=== PATIENT | female | born 1965 | race African-American/Black ===

== ENCOUNTER 2018-05-08 11:19 | Emergency (ER) | payer BC, SELFPAY ==
--- NOTE | 2018-05-08 14:31 | EDPHYS ---
Physician Documentation [facility] Name: Lolis Betancourt Age: 53 yrs Sex: Female : 1965 Arrival Date: 05/08/2018 Time: 11:22 Bed 28 Private MD: ED Physician Rickie Manning HPI: 05/08 14:27 This 53 yrs old Black Female presents to ER via Wheelchair with complaints of Hip Pain, kb Leg Pain. 14:27 The patient or guardian reports pain. sustained from unknown reason, There is no kb obvious deformity, The patient is able to self ambulate. The patient is able to bear their full body weight. The patient's discomfort radiates to the right quadriceps. The complaints affect the right hip. Onset: The symptoms/episode began/occurred 2 day(s) ago. Modifying factors: The symptoms are alleviated by nothing, the symptoms are aggravated by weight bearing. Associated signs and symptoms: Loss of consciousness: the patient experienced no loss of consciousness, Pertinent positives: None. Pertinent negatives: None. Severity of symptoms: At their worst the symptoms were mild, moderate, in the emergency department the symptoms are unchanged. The patient has not experienced similar symptoms in the past. The patient has not recently seen a physician. Pt reports pain in right hip area that radiates down to right knee. Denies injury or trauma. . 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 - Social history:: Smoking status: Patient/guardian denies using tobacco. - Ebola Screening: : Patient negative for fever greater than or equal to 101.5 degrees Fahrenheit, and additional compatible Ebola Virus Disease symptoms Patient denies exposure to infectious person Patient denies travel to an Ebola-affected area in the 21 days before illness onset No symptoms or risks identified at this time. ROS: 14:26 Constitutional: Negative for fever, chills, and weight loss, Cardiovascular: Negative kb for chest pain, palpitations, and edema, Respiratory: Negative for shortness of breath, cough, wheezing, and pleuritic chest pain, Abdomen/GI: Negative for abdominal pain, nausea, vomiting, diarrhea, and constipation, Skin: Negative for injury, rash, and discoloration, Neuro: Negative for headache, weakness, numbness, tingling, and seizure. 14:26 MS/extremity: Positive for pain, of the right hip. Exam: 14:26 Constitutional: This is a well developed, well nourished patient who is awake, alert, kb and in no acute distress. Head/Face: Normocephalic, atraumatic. Neck: Trachea midline, no thyromegaly or masses palpated, and no cervical lymphadenopathy. Supple, full range of motion without nuchal rigidity, or vertebral point tenderness. No Meningismus. Chest/axilla: Normal chest wall appearance and motion. Nontender with no deformity. No lesions are appreciated. Cardiovascular: Regular rate and rhythm with a normal S1 and S2. No gallops, murmurs, or rubs. Normal PMI, no JVD. No pulse deficits. Respiratory: Lungs have equal breath sounds bilaterally, clear to auscultation and percussion. No rales, rhonchi or wheezes noted. No increased work of breathing, no retractions or nasal flaring. Abdomen/GI: Soft, non-tender, with normal bowel sounds. No distension or tympany. No guarding or rebound. No evidence of tenderness throughout. Skin: Warm, dry with normal turgor. Normal color with no rashes, no lesions, and no evidence of cellulitis. MS/ Extremity: Pulses equal, no cyanosis. Neurovascular intact. Full, normal range of motion. Neuro: Awake and alert, GCS 15, oriented to person, place, time, and situation. Cranial nerves II-XII grossly intact. Motor strength 5/5 in all extremities. Sensory grossly intact. Cerebellar exam normal. Normal gait. Vital Signs: 11:50 BP 148 / 85; Pulse 69; Resp 20; Temp 97.9; Pulse Ox 96% on R/A; Weight 136.08 kg; aj Height 5 ft. 10 in. (177.80 cm); 11:50 Body Mass Index 43.05 (136.08 kg, 177.80 cm) gilmer MDM: 13:19 Patient medically screened. kb 13:54 Patient medically screened. kb 14:26 Data reviewed: vital signs, nurses notes. Data interpreted: Pulse oximetry: on room air kb is 96 %. Interpretation: normal. 14:27 Counseling: I had a detailed discussion with the patient and/or guardian regarding: the kb historical points, exam findings, and any diagnostic results supporting the discharge/admit diagnosis, the need for outpatient follow up, a family practitioner, to return to the emergency department if symptoms worsen or persist or if there are any questions or concerns that arise at home. 14:31 ED course: No pain with rest. . kb Administered Medications: 14:34 Drug: [place] (7.5 mg-325 mg) 1 tabs Route: PO; mg2 14:34 Follow up: Response: No adverse reaction; Medication administered at discharge. mg2 Disposition: 05/09 13:50 Co-signature as Attending Physician, Rickie Manning MD I agree with the assessment and kdr plan of care. Disposition: 05/08/18 14:30 Discharged to Home. Impression: Pain in right leg. - Condition is Stable. - Discharge Instructions: Musculoskeletal Pain. - Prescriptions for Cyclobenzaprine 10 mg Oral Tablet - take 1 tablet by ORAL route every 8 hours As needed; 21 tablet. - Medication Reconciliation Form, Thank You Letter, Antibiotic Education, Prescription Opioid Use form. - Follow up: Emergency Department; When: As needed; Reason: Worsening of condition. Follow up: Private Physician; When: 2 - 3 days; Reason: Recheck today's complaints, Continuance of care, Re-evaluation by your physician. Signatures: Sharlene Garrett, VP & GENERAL COUNSEL-C VP & GENERAL COUNSEL-Tamara Blake RN RN Rickie Murillo MD MD [facility] Linh Franco RN RN tl3 Riaz Puckett RN RN mg2 Corrections: (The following items were deleted from the chart) 05/08 15:05 14:30 05/08/2018 14:30 Discharged to Home. Impression: Pain in right leg. Condition is tl3 Stable. Forms are Medication Reconciliation Form, Thank You Letter, Antibiotic Education, Prescription Opioid Use. Follow up: Emergency Department; When: As needed; Reason: Worsening of condition. Follow up: Private Physician; When: 2 - 3 days; Reason: Recheck today's complaints, Continuance of care, Re-evaluation by your physician. kb
--- NOTE | 2018-05-08 14:31 | ER ---
Nurse's Notes [facility] Name: Lolis Betancourt Age: 53 yrs Sex: Female : 1965 Arrival Date: 05/08/2018 Time: 11:22 Bed 28 Private MD: Diagnosis: Pain in right leg Presentation: 05/08 11:48 Presenting complaint: Patient states: Right hip pain that radiates to knee for 2 days. aj Transition of care: patient was not received from another setting of care. Onset of symptoms was May 06, 2018. Risk Assessment: Do you want to hurt yourself or someone else? Patient reports no desire to harm self or others. Initial Sepsis Screen: Does the patient meet any 2 criteria? No. Patient's initial sepsis screen is negative. Does the patient have a suspected source of infection? No. Patient's initial sepsis screen is negative. Care prior to arrival: None. 11:48 Method Of Arrival: Wheelchair aj 11:48 Acuity: LYRIC 4 aj Triage Assessment: 11:50 General: Appears in no apparent distress. comfortable, obese, Behavior is calm, aj cooperative, appropriate for age. Pain: Complains of pain in right hip and right leg. Neuro: Level of Consciousness is awake, alert, obeys commands, Oriented to person, place, time, situation, Appropriate for age. Respiratory: Airway is patent Respiratory effort is even, unlabored, Respiratory pattern is regular, symmetrical. Derm: Skin is intact, is healthy with good turgor, Skin is pink, warm \T\ dry. normal. Musculoskeletal: Reports pain in right hip and right leg. 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 - Social history:: Smoking status: Patient/guardian denies using tobacco. - Ebola Screening: : Patient negative for fever greater than or equal to 101.5 degrees Fahrenheit, and additional compatible Ebola Virus Disease symptoms Patient denies exposure to infectious person Patient denies travel to an Ebola-affected area in the 21 days before illness onset No symptoms or risks identified at this time. Screenin:08 Abuse screen: Denies threats or abuse. Denies injuries from another. Nutritional mg2 screening: No deficits noted. Tuberculosis screening: No symptoms or risk factors identified. Fall Risk Gait- Weak (10 pts.). Assessment: 14:09 General: Appears in no apparent distress. uncomfortable, Behavior is calm, cooperative. mg2 Pain: Complains of pain in right hip Pain radiates to right leg Pain currently is 6 out of 10 on a pain scale. Quality of pain is described as aching, Pain began gradually, 1 day ago. Neuro: Level of Consciousness is awake, alert, obeys commands, Oriented to person, place, time. Cardiovascular: No deficits noted. Respiratory: No deficits noted. GI: No signs and/or symptoms were reported involving the gastrointestinal system. : No signs and/or symptoms were reported regarding the genitourinary system. EENT: No signs and/or symptoms were reported regarding the EENT system. Derm: Skin is intact, is healthy with good turgor, Skin is pink, warm \T\ dry. normal. Musculoskeletal: Reports pain in right leg and pelvis and right hip. Vital Signs: 11:50 BP 148 / 85; Pulse 69; Resp 20; Temp 97.9; Pulse Ox 96% on R/A; Weight 136.08 kg; aj Height 5 ft. 10 in. (177.80 cm); 11:50 Body Mass Index 43.05 (136.08 kg, 177.80 cm) aj ED Course: 11:22 Patient arrived in ED. as 11:49 Triage completed. aj 11:50 Arm band placed on left wrist. Patient placed in waiting room, in a wheelchair, Patient aj notified of wait time. 13:18 Linh Franco, MARC is Primary Nurse. tl3 13:19 Sharlene Garrett FNP-C is PHCP. kb 13:19 Rickie Manning MD is Attending Physician. kb 13:54 Sharlene Garrett FNP-C is PHCP. kb 13:54 Rickie Manning MD is Attending Physician. kb 14:11 Patient has correct armband on for positive identification. mg2 Administered Medications: 14:34 Drug: [place] (7.5 mg-325 mg) 1 tabs Route: PO; mg2 14:34 Follow up: Response: No adverse reaction; Medication administered at discharge. mg2 Outcome: 14:30 Discharge ordered by . kb 15:05 Patient left the ED. tl3 Signatures: Sharlene Garrett, SEATING UPHOLSTERER-C SEATING UPHOLSTERER-Tamara Blake RN RN aj Ludmila Javier Tammy, RN RN tl3 Riaz Puckett, MARC RN mg2 Corrections: (The following items were deleted from the chart) 13:26 11:50 BP 148 / 85; Pulse 20bpm; Resp 20bpm; Pulse Ox 96% RA; Temp 97.9F; 136.08 kg; aj Height 5 ft. 10 in.; BMI: 43.0; aj
[2018-05-08] MEDS ORDERED: HYDROCODONE/APAP 7.5/325 MG TAB ONE (14:39)
[2018-05-08 16:27] VITALS: BP 148/85; TEMP 97.9; O2SAT 96
== END 2018-05-08 15:05 | disposition home or self-care (01) ==
LOC: ER 11:19
DX: M79.604 Pain in right leg (principal); I10 Essential (primary) hypertension; E78.5 Hyperlipidemia, unspecified; I50.9 Heart failure, unspecified; Z86.73 Personal history of transient ischemic attack (TIA), and cerebral infarction without residual deficits
CPT/HCPCS: 99282

== ENCOUNTER 2019-10-28 06:44 | Inpatient (IN) | payer SELFPAY ==
[2019-10-28] MEDS ORDERED: FUROSEMIDE 40 MG/4 ML VIAL ONE (07:49)
[2019-10-28 08:07] LABS: Absolute Lymphocytes (CBC) 1.6 K/uL (0.7-4.9); Basophils % 0.8 % (0-1.3); Hematocrit 46.1 % (36.0-45.0); Lymphocytes % 21.9 % (15.3-44.8); MPV 9.5 fL (7.6-11.3); RBC Red Blood Cell Count 5.14 M/uL (3.86-4.86)
[2019-10-28 08:11] LABS: Protime INR 1.3
[2019-10-28 08:28] LABS: Albumin 3.2 g/dL (3.4-5.0); Bilirubin Direct 0.2 mg/dL (0-0.2); Bilirubin Total 0.7 mg/dL (0.2-1.0); Magnesium 1.7 mg/dL (1.8-2.4); Potassium 3.7 mmol/L (3.5-5.1); Protein, Total 7.2 g/dL (6.4-8.2); Troponin (Emerg Dept Use Only) 0.28 ng/mL (0.0-0.045)
--- NOTE | 2019-10-28 08:29 | RAD REPORT ---
EXAM DESCRIPTION: RAD - Chest Single View - 10/28/2019 7:31 am CLINICAL HISTORY: SWELLING Chest pain. COMPARISON: CHEST SINGLE VIEW dated 09/13/2015; CHEST PA AND LAT 2 VIEW dated 03/10/2013; CHEST SINGLE VIEW dated 03/06/2013 FINDINGS: Portable technique limits examination quality. Mild to moderate pulmonary edema. The heart is significantly enlarged. No displaced fractures. IMPRESSION: Moderate CHF.
--- NOTE | 2019-10-28 08:41 | EDPHYS ---
Physician Documentation [facility] Name: Lolis Betancourt Age: 54 yrs Sex: Female : 1965 Arrival Date: 10/28/2019 Time: 06:45 Bed 13 Private MD: ED Physician Chinmay Lorenz HPI: 10/27 08:12 This 54 yrs old Black Female presents to ER via Wheelchair with complaints of Feet kb Swelling, Anxiety. 07:25 Pt reports she has been retaining fluid in her legs and abd. States she has also been kb having panic attacks due to the loss of her 6 months ago and her mother yesterday. Has history of anxiety.. 08:12 The patient presents with swelling. The complaints affect the right leg and left leg. kb The patient has experienced similar episodes in the past. 08:12 Context: The problem was sustained at home, resulted from a chronic condition, the kb patient can fully bear weight, the patient is able to ambulate. Onset: The symptoms/episode began/occurred 3 day(s) ago. Modifying factors: The symptoms are alleviated by nothing. the symptoms are aggravated by nothing. Associated signs and symptoms: Pertinent positives: swelling, Pertinent negatives calf tenderness, fever, nausea, numbness, rash, tingling, vomiting, warmth, weakness. Treatment prior to arrival includes: no previous treatment. Severity of symptoms: At their worst the symptoms were moderate, in the emergency department the symptoms are unchanged. The patient has not recently seen a physician. Historical: - Allergies: 07:02 No Known Allergies; wh - Home Meds: 07:05 atorvastatin 40 mg oral tab once daily [Active]; losartan 25 mg oral tab once daily [Active]; metoprolol tartrate 25 mg Oral tab 1 tab 2 times per day [Active]; clopidogrel 75 mg Oral tab 1 tab once daily [Active]; Lasix 40 mg Oral tab 1 tab once daily [Active]; hydroxyzine HCl 25 mg Oral tab 1 tab every 6 hours [Active]; - PMHx: 07:02 CHF; CVA; Hyperlipidemia; Hypertension; Anxiety; wh - Immunization history:: Adult Immunizations up to date. - Social history:: Smoking status: Patient/guardian denies using. ROS: 08:14 Constitutional: Negative for fever, chills, and weight loss, Neck: Negative for injury, kb pain, and swelling, Respiratory: Negative for shortness of breath, cough, wheezing, and pleuritic chest pain, Abdomen/GI: Negative for abdominal pain, nausea, vomiting, diarrhea, and constipation, Back: Negative for injury and pain, MS/Extremity: Negative for injury and deformity, Skin: Negative for injury, rash, and discoloration, Neuro: Negative for headache, weakness, numbness, tingling, and seizure. 08:14 Cardiovascular: Positive for edema, Negative for chest pain, orthopnea, palpitations, paroxysmal nocturnal dyspnea. 08:14 Psych: Positive for anxiety, Negative for depression, drug dependence, alcohol dependence, auditory hallucinations, visual hallucinations, homicidal ideation, insomnia, suicide gesture, suicidal ideation. Exam: 08:13 Constitutional: This is a well developed, well nourished patient who is awake, alert, kb and in no acute distress. Head/Face: Normocephalic, atraumatic. Neck: Trachea midline, no thyromegaly or masses palpated, and no cervical lymphadenopathy. Supple, full range of motion without nuchal rigidity, or vertebral point tenderness. No Meningismus. Chest/axilla: Normal chest wall appearance and motion. Nontender with no deformity. No lesions are appreciated. Respiratory: Lungs have equal breath sounds bilaterally, clear to auscultation and percussion. No rales, rhonchi or wheezes noted. No increased work of breathing, no retractions or nasal flaring. Abdomen/GI: Soft, non-tender, with normal bowel sounds. No distension or tympany. No guarding or rebound. No evidence of tenderness throughout. Back: No spinal tenderness. No costovertebral tenderness. Full range of motion. Skin: Warm, dry with normal turgor. Normal color with no rashes, no lesions, and no evidence of cellulitis. MS/ Extremity: Pulses equal, no cyanosis. Neurovascular intact. Full, normal range of motion. Neuro: Awake and alert, GCS 15, oriented to person, place, time, and situation. Cranial nerves II-XII grossly intact. Motor strength 5/5 in all extremities. Sensory grossly intact. Cerebellar exam normal. Normal gait. 08:13 Cardiovascular: Rate: normal, Rhythm: irregularly irregular, Pulses: no pulse deficits are appreciated, Heart sounds: normal, Edema: 1+ edema to level of left ankle and right ankle. 08:41 ECG was reviewed by the Attending Physician. kb Vital Signs: 06:59 BP 123 / 106; Pulse 80; Resp 18; Temp 98.2; Pulse Ox 97% ; Weight 154.22 kg; Height 5 wh ft. 10 in. (177.80 cm); 07:40 BP 118 / 95; Pulse Ox 96% on R/A; ss 08:32 BP 115 / 95; Pulse 126; Resp 18; Pulse Ox 96% on R/A; Pain 0/10; ss 09:23 BP 107 / 86; Pulse 106; Resp 16; Pulse Ox 97% on R/A; ph 10:30 BP 109 / 88; Pulse 102; Resp 16; Temp 97.9; Pulse Ox 97% on R/A; ph 06:59 Body Mass Index 48.78 (154.22 kg, 177.80 cm) wh MDM: 06:51 Patient medically screened. kb 07:25 Data reviewed: vital signs, nurses notes. Data interpreted: Pulse oximetry: on room air kb is 97 %. Interpretation: normal. 08:38 Counseling: I had a detailed discussion with the patient and/or guardian regarding: the kb historical points, exam findings, and any diagnostic results supporting the discharge/admit diagnosis, lab results, radiology results, the need for further work-up and treatment in the hospital. 10/27 07:12 Order name: Basic Metabolic Panel; Complete Time: 08:32 kb 10/27 07:12 Order name: CBC with Diff; Complete Time: 08:10 kb 10/27 07:12 Order name: LFT's; Complete Time: 08:32 kb 10/27 07:12 Order name: Magnesium; Complete Time: 08:32 kb 10/27 07:12 Order name: NT PRO-BNP; Complete Time: 08:32 kb 10/27 07:12 Order name: PT-INR; Complete Time: 08:14 kb 10/27 07:12 Order name: Troponin (emerg Dept Use Only); Complete Time: 08:32 kb 10/27 07:12 Order name: XRAY Chest (1 view); Complete Time: 08:36 kb 10/27 08:50 Order name: Echo with Doppler EDMS 10/27 08:50 Order name: Thyroid Stimulating Hormone; Complete Time: 09:25 EDMS 10/27 08:50 Order name: Basic Metabolic Panel EDMS 10/27 07:12 Order name: EKG; Complete Time: 07:13 kb 10/27 07:12 Order name: Cardiac monitoring; Complete Time: 08:35 kb 10/27 07:12 Order name: EKG - Nurse/Tech; Complete Time: 08:35 kb 10/27 07:12 Order name: IV Saline Lock; Complete Time: 07:56 kb 10/27 07:12 Order name: Labs collected and sent; Complete Time: 07:56 kb 10/27 07:12 Order name: O2 Per Protocol; Complete Time: 07:57 kb 10/27 07:12 Order name: O2 Sat Monitoring; Complete Time: 07:57 kb 10/27 08:50 Order name: CONS Physician Consult EDMT 10/27 08:50 Order name: Heart Healthy EDMT EC:41 Rate is 126 beats/min. Rhythm is irregularly irregular. QRS [place] is Normal. QRS kb interval is normal at 118 msec. QT interval is normal at 366 msec. Administered Medications: 07:56 Drug: Lasix 40 mg Route: IVP; Site: right antecubital; ss 08:34 Follow up: Response: No adverse reaction; No adverse reaction, patient has voided x 2 ss at this time 11:09 Not Given (Hemodynamic Parameters): Lopressor 5 mg IVP once; Hold for SBP <100 or HR ph <60. 11:09 Not Given (Hemodynamic Parameters): Lasix 40 mg IVP once ph Disposition: 15:05 Co-signature as Attending Physician, Chinmay Lorenz MD I agree with the assessment and 4 plan of care. Disposition: 10/28/19 08:41 Hospitalization ordered by Freddy Seay for Inpatient Admission. Preliminary diagnosis are Unspecified atrial fibrillation - new onset, Unspecified combined systolic (congestive) and diastolic (congestive) heart failure. - Bed requested for Telemetry/MedSurg (Inpatient). - Status is Inpatient Admission. hb - Condition is Stable. - Problem is new. - Symptoms are unchanged. Signatures: Dispatcher [employer] [facility] Sharlene Garrett FNP-C FNP-Maryjo Fuller Shelby, RN RN Candy Fan RN RN Harjit Bae Chinmay Lorenz MD MD [facility] Rosalia Payton RN ph Corrections: (The following items were deleted from the chart) 08:25 08:13 Cardiovascular: Rate: normal, Pulses: no pulse deficits are appreciated, Heart kb sounds: normal, Edema: 1+ edema to level of left ankle and right ankle, kb 09:52 08:41 Hospitalization Ordered by Freddy Seay MD for Inpatient Admission. bd Preliminary diagnosis is Unspecified atrial fibrillation - new onset; Unspecified combined systolic (congestive) and diastolic (congestive) heart failure. Bed requested for Telemetry/MedSurg (Inpatient). Status is Inpatient Admission. Condition is Stable. Problem is new. Symptoms are unchanged. kb 11:30 09:52 10/28/2019 08:41 Hospitalization Ordered by Freddy Seay MD for Inpatient hb Admission. Preliminary diagnosis is Unspecified atrial fibrillation - new onset; Unspecified combined systolic (congestive) and diastolic (congestive) heart failure. Bed requested for Telemetry/MedSurg (Inpatient). Status is Inpatient Admission. Condition is Stable. Problem is new. Symptoms are unchanged. bd
--- NOTE | 2019-10-28 08:41 | ER ---
Nurse's Notes [facility] Name: Lolis Betancourt Age: 54 yrs Sex: Female : 1965 Arrival Date: 10/28/2019 Time: 06:45 Bed 13 Private MD: Diagnosis: Unspecified atrial fibrillation-new onset;Unspecified combined systolic (congestive) and diastolic (congestive) heart failure Presentation: 10/27 06:59 Chief complaint: Patient states: C/O leg swelling and fluid retention on abdomen that wh started a few days ago. Pt also C/O panic attacks. Coronavirus screen: Proceed with normal triage. Patient denies a cough. Patient denies shortness of breath or difficulty breathing. Patient denies measured and/or subjective temperature greater than 100.4F prior to today's visit. Patient denies travel on a cruise ship or to a country the [facility] currently lists as an affected area. Patient denies contact with known and/or suspected case of COVID-19. Ebola Screen: Patient negative for fever greater than or equal to 101.5 degrees Fahrenheit, and additional compatible Ebola Virus Disease symptoms Patient denies exposure to infectious person. Initial Sepsis Screen: Does the patient meet any 2 criteria? No. Patient's initial sepsis screen is negative. Does the patient have a suspected source of infection? No. Patient's initial sepsis screen is negative. Risk Assessment: Do you want to hurt yourself or someone else? Patient reports no desire to harm self or others. Onset of symptoms is unknown. 06:59 Method Of Arrival: Wheelchair 06:59 Acuity: LYRIC 3 Historical: - Allergies: 07:02 No Known Allergies; - Home Meds: 07:05 atorvastatin 40 mg oral tab once daily [Active]; losartan 25 mg oral tab once daily [Active]; metoprolol tartrate 25 mg Oral tab 1 tab 2 times per day [Active]; clopidogrel 75 mg Oral tab 1 tab once daily [Active]; Lasix 40 mg Oral tab 1 tab once daily [Active]; hydroxyzine HCl 25 mg Oral tab 1 tab every 6 hours [Active]; - PMHx: 07:02 CHF; CVA; Hyperlipidemia; Hypertension; Anxiety; wh - Immunization history:: Adult Immunizations up to date. - Social history:: Smoking status: Patient/guardian denies using. Screenin:08 Abuse screen: Denies threats or abuse. Denies injuries from another. Nutritional wh screening: No deficits noted. Tuberculosis screening: No symptoms or risk factors identified. Fall Risk None identified. Assessment: 08:40 Reassessment: Pt voided at this time 300 mL. Started menstrual cycle. Feminine pads ss given. Pt is grateful. Pt back in exam bed, on monitors. Call light remains within reach. 09:30 Reassessment: Patient appears in no apparent distress at this time. Patient and/or ph family updated on plan of care and expected duration. Pain level reassessed. Patient is alert, oriented x 3, equal unlabored respirations, skin warm/dry/pink. 10:00 Reassessment: Attempted to call report to second floor, no answer at nurses station. ph 10:30 Reassessment: Patient appears in no apparent distress at this time. Patient and/or ph family updated on plan of care and expected duration. Pain level reassessed. Patient is alert, oriented x 3, equal unlabored respirations, skin warm/dry/pink. Report called to Maggie TRAN. Vital Signs: 06:59 BP 123 / 106; Pulse 80; Resp 18; Temp 98.2; Pulse Ox 97% ; Weight 154.22 kg; Height 5 wh ft. 10 in. (177.80 cm); 07:40 BP 118 / 95; Pulse Ox 96% on R/A; ss 08:32 BP 115 / 95; Pulse 126; Resp 18; Pulse Ox 96% on R/A; Pain 0/10; ss 09:23 BP 107 / 86; Pulse 106; Resp 16; Pulse Ox 97% on R/A; ph 10:30 BP 109 / 88; Pulse 102; Resp 16; Temp 97.9; Pulse Ox 97% on R/A; ph 06:59 Body Mass Index 48.78 (154.22 kg, 177.80 cm) ED Course: 06:45 Patient arrived in ED. cl3 06:51 Sharlene Garrett FNP-C [facility]. kb 06:51 Andrei Angelo MD is Attending Physician. kb 06:51 Chinmay Lorenz MD is Attending Physician. kb 07:01 Triage completed. 07:08 Patient has correct armband on for positive identification. Bed in low position. Call wh light in reach. Side rails up X 1. Pulse ox on. NIBP on. 07:08 Arm band placed on right wrist. wh 07:33 XRAY Chest (1 view) In Process Unspecified. EDMS 07:39 Hailey Browning, MARC is Primary Nurse. ss 07:57 Inserted saline lock: 20 gauge in right Blood collected. ss 08:38 Cassius Seay MD is Hospitalizing Provider. kb 08:38 Freddy Seay MD is Hospitalizing Provider. kb 11:11 No provider procedures requiring assistance completed. Patient admitted, IV remains in ph place. Administered Medications: 07:56 Drug: Lasix 40 mg Route: IVP; Site: right antecubital; ss 08:34 Follow up: Response: No adverse reaction; No adverse reaction, patient has voided x 2 ss at this time 11:09 Not Given (Hemodynamic Parameters): Lopressor 5 mg IVP once; Hold for SBP <100 or HR ph <60. 11:09 Not Given (Hemodynamic Parameters): Lasix 40 mg IVP once ph Output: 09:23 Urine: 350ml (Voided); Total: 350ml. ph Outcome: 08:41 Decision to Hospitalize by Provider. kb 11:12 Admitted to Tele accompanied by tech, via wheelchair, room 203, with chart, Report ph called to Maggie TRAN 11:12 Condition: stable 11:12 Instructed on the need for admit. 11:30 Patient left the ED. Signatures: Dispatcher [employer] EDMS Sharlene Garrett, AD OPERATIONS COORDINATOR-C AD OPERATIONS COORDINATOR-CkHailey Méndez RN RN Rosalia Payton RN RN Candy Fan RN RN Harjit Bae Charde cl3
[2019-10-28] MEDS ORDERED: ONDANSETRON 4 MG/2 ML VIAL IV PRN (08:44)
[2019-10-28] MEDS ORDERED: ACETAMINOPHEN 500 MG TAB PO PRN (08:44)
[2019-10-28] MEDS: FUROSEMIDE 40 MG/4 ML VIAL IV SCH ×2 (09:00→16:27)
--- NOTE | 2019-10-28 09:18 | P.HP ---
Certification for Inpatient Patient admitted to: Inpatient With expected LOS: >2 Midnights Practitioner: I am a practitioner with admitting privileges, knowledge of patient current condition, hospital course, and medical plan of care. Services: Services provided to patient in accordance with Admission requirements found in Title 42 Section 412.3 of the Code of Federal Regulations Patient History Date of Service: 10/28/19 Reason for admission: Shortness of breath in AFib History of Present Illness: Patient is 54 years of age history of congestive heart failure hypertension a dmitted with dyspnea for the past few days lower extremity edema abdominal distension patient is compliant with the medication recent head to bereavement seen her family cause a lot of stress she has some anxiety no primary care physician symptoms of obstructive sleep apnea excessive daytime somnolence snoring patient was diagnosed with new onset AFib Allergies No Known Drug Allergies Allergy (Verified 09/13/15 23:09) Unknown No Known Allergies Allergy (Uncoded 09/13/15 20:08) Unknown Home Medications: Folic Acid [Folic Acid*] 1 mg PO DAILY #0 tab 03/14/13 lisinopriL [Prinivil*] 5 mg PO DAILY #0 tab 03/14/13 Atorvastatin Calcium 40 mg PO DAILY #30 tablet 09/16/15 Clopidogrel Bisulfate [Plavix*] 75 mg PO DAILY #30 tablet 09/16/15 Furosemide [Lasix*] 40 mg PO DAILY #30 tab 09/16/15 Metoprolol Tartrate [Lopressor*] 25 mg PO BID #60 tab 09/16/15 Valsartan [Diovan*] 40 mg PO DAILY #30 tab 09/16/15 - Past Medical/Surgical History Diabetic: No -: CHF -: CVA -: HTN - Family History Mother -: Kidney disease Father -: Hypertension, Liver disease, Kidney disease - Social History Alcohol use: No CD- Drugs: No Caffeine use: Yes Review of Systems Unremarkable Respiratory: Shortness of Breath Cardiovascular: Edema (Bilateral edema) Physical Examination - Vital Signs Temperature: 98.2 F Blood Pressure: 118/95 Pulse: 80 Respirations: 18 Pulse Ox (%): 97 - Physical Exam General: In no apparent distress, Oriented x3 HEENT: Atraumatic Neck: Supple Respiratory: Clear to auscultation bilaterally Cardiovascular: Edema (Bilateral 2+ edema), Irregular heart rate/rhythm Gastrointestinal: Normal bowel sounds, Soft and benign Musculoskeletal: No clubbing Integumentary: No rashes, No breakdown - Studies Laboratory Data (last 24 hrs) 10/28/19 07:55: PT 15.3 H, INR 1.30 10/28/19 07:55: WBC 7.3, Hgb 14.5, Hct 46.1 H, Plt Count 189 10/28/19 07:55: Sodium 141, Potassium 3.7, BUN 14, Creatinine 0.81, Glucose 125 H, Magnesium 1.7 L, Total Bilirubin 0.7, AST 29, ALT 50, Alkaline Phosphatase 74 Assessment and Plan - Problems (Diagnosis) (1) Atrial fibrillation Current Visit: Yes Status: Acute Plan: Patient is 54 years of age admitted with apparently new onset of AFib now eyes any palpitation Qualifiers: Atrial fibrillation type: unspecified Qualified Code(s): I48.91 - Unspecified atrial fibrillation (2) Congestive heart failure Current Visit: Yes Status: Acute Plan: Patient has a history of congestive heart failure compliant with the medication continue with diuretics resume home medications labs reviewed echocardiogram thyroid function test Consul cardiology patient has a history of stroke is on Pl avix Discharge Plan: Home Plan to discharge in: 24 Hours - Advance Directives Does patient have a Living Will: No Does patient have a Durable POA for Healthcare: No
--- NOTE | 2019-10-28 11:35 | EKG ---
Test Date: 2019-10-28 Test Time: 08:20:13 Rope Walker: JOHN MEASUREMENT RESULTS: Intervals: Rate: 126 MT: QRSD: 118 QT: 366 QTc: 530 [place]: P: MT: QRS: 9 T: 63 INTERPRETIVE STATEMENTS: Atrial fibrillation with rapid ventricular response with premature ventricular or aberrantly conducted complexes Septal infarct, age undetermined Abnormal ECG Compared to ECG 09/13/2015 15:43:56 Ventricular premature complex(es) now present Myocardial infarct finding now present Sinus tachycardia no longer present ST (T wave) deviation no longer present Possible ischemia no longer present Electronically Signed On 10-28-19 11:34:41 CDT by Jimenez Marcus
[2019-10-28] MEDS ORDERED: MAGNESIUM OXIDE 400 MG TAB PO ONE (15:00)
[2019-10-28] MEDS ORDERED: DIGOXIN 0.25 MG/ML AMP IV ONE (23:44)
[2019-10-29 05:42] LABS: Magnesium 1.7 mg/dL (1.8-2.4); Phosphorus 3.6 mg/dL (2.5-4.9); Potassium 3.5 mmol/L (3.5-5.1); Troponin I 0.24 ng/mL (0.0-0.045)
[2019-10-29] MEDS: DIGOXIN 0.25 MG/ML AMP IV SCH ×2 (06:08→13:01)
[2019-10-29] MEDS ORDERED: ALBUTEROL INHALER 60 PUFF/8 GM IH PRN (06:22)
[2019-10-29] MEDS ORDERED: hydrOXYzine HCL 25 MG TAB PO PRN (06:22)
[2019-10-29] MEDS ORDERED: MAGNESIUM SULFATE 1 gm IVPB 1 GM/100 ML BAG IV ONE (06:24)
--- NOTE | 2019-10-29 07:00 | P.PN ---
Date of Service: 10/28/19 SUBJECTIVE: Patient remains in atrial fibrillation with occasional episodes of RVR. Heart rate gets into the 120s. Patient blood pressure is been 90-100 systolic. At this time, will go ahead and give digoxin to control the heart rate and try to get HR controlled. Spoke with patient regarding POC; will assess patient after first dose given OBJECTIVE: Vital Signs: reviewed General: Morbidly obese; AAO x3 CV: Irr, irr rate/rhythm w/ RENATA Lungs: Decreased Abd: Soft NT/distended BS + Ext: mildly edematous ASSESSMENT: 1. Atrial fib w/ RVR 2. Low BP 3. Morbidly obese 4. HTN 5. DM-2 PLAN: -will give IV digoxin and reassess; monitor hemodynamics closely -continue with current plan of care -monitor labs closely -strict BS and BP -Troponins mildly elevated which may be related to AFib with RVR. Cardiology consultation and echocardiogram pending. -BNP also is elevated. Await workup at this time and await for cardiology input. Monitor closely through the evening. Follow-up: Patient has done well through the evening; she feels better after digoxin; no CP; no palpitations; will continue with a couple additonal doses every 6h; POC per above Total time spent with patient through the evening was 45 minutes in addition to H&P done in the AM by colleague, Dr. Seay
--- NOTE | 2019-10-29 08:21 | P.PN ---
Subjective Date of Service: 10/29/19 Chief Complaint: Shortness of breath in AFib Subjective: Improving (Patient is doing much better shortness of breath is improved patient is in AFib) Review of Systems Unremarkable Physical Examination - Vital Signs Temperature: 97.0 F Blood Pressure: 117/84 Pulse: 94 Respirations: 18 Pulse Ox (%): 98 - Physical Exam General: Alert, In no apparent distress, Oriented x3 Respiratory: Clear to auscultation bilaterally Cardiovascular: No edema, Regular rate/rhythm - Studies Laboratory Data (last 24 hrs) 10/28/19 07:55: Sodium 141, Potassium 3.7, BUN 14, Creatinine 0.81, Glucose 125 H, Magnesium 1.7 L, Total Bilirubin 0.7, AST 29, ALT 50, Alkaline Phosphatase 74 Assessment & Plan - Problems (Diagnosis) (1) Atrial fibrillation Current Visit: Yes Status: Acute Plan: Patient is in AFib await cardiology consult echocardiogram pending tsh is normal start patient on Eliquis change to p.o. Lasix patient is on Plavix at home Qualifiers: Atrial fibrillation type: unspecified Qualified Code(s): I48.91 - Unspecified atrial fibrillation (2) Congestive heart failure Current Visit: Yes Status: Acute Plan: Doing well shortness of breath is improved saturation is normal high risk for sleep apnea will need outpatient sleep study
[2019-10-29] MEDS: LOSARTAN POTASSIUM 50 MG TABLET PO SCH (08:30)
[2019-10-29] MEDS: FUROSEMIDE 40 MG TABLET PO SCH (08:30)
[2019-10-29] MEDS: ATORVASTATIN 40 MG TAB PO SCH (08:31)
[2019-10-29] MEDS: METOPROLOL TAR 25 MG TAB PO SCH (08:31)
[2019-10-29] MEDS: CLOPIDOGREL 75 MG TABLET PO SCH (08:32)
[2019-10-29] MEDS: APIXABAN 5 MG TABLET PO SCH ×2 (08:35→20:41)
[2019-10-29] MEDS ORDERED: POTASSIUM CL SA 10 MEQ TAB PO ONE (09:00)
--- NOTE | 2019-10-29 15:13 | CON ---
Date of Consultation: 10/29/[address] Seay on 10/28/2019. I saw the patient on 10/29/2019. Reason For Consultation: Congestive heart failure and atrial fibrillation. History Of Present Illness: Ms. Betancourt is a 54-year-old black woman, has seen Dr. [facility]. She has chronic systolic congestive heart failure with an ejection fraction of 20-25% in 2016. She has a history of CVA, hypertension, dyslipidemia, and anxiety. She has not really been followe d appropriately from a cardiac standpoint. She came in with pedal edema, PND, orthopnea. Chest x-ra y shows congestive heart failure, was noted to be in atrial fibrillation as well with a rapid ventric ular response. She denied syncope. She denied chest pain. She denied fever or chills. Past Medical History: As stated above. Allergies: NONE. Review of Systems: Negative. Social History: Negative. Family History: Noncontributory. Medications: At home are supposed to be Lipitor, losartan, metoprolol, Plavix, and Lasix. Physical Examination: General: She is very pleasant. She weighs 380 pounds. HEENT: Negative. Neck: Supple without any bruit, lymphadenopathy, JVD, or thyromegaly. Chest: Revealed rales bilaterally. Cardiac: Revealed atrial fibrillation. No murmurs, gallops, or rubs. Abdomen: Obese, but benign. Extremities: Revealed 2+ edema. Laboratory Data: Chest x-ray shows CHF. EKG showed atrial fibrillation at 126. Her troponin was 0. 28. BNP was 1742. Echocardiogram from 2016 showed an ejection fraction of 20% to 25%. Impression And Plan: 1.Atrial fibrillation, rapid ventricular response. I think the patient needs to remain on beta-bloc kers for now. She should be on an anticoagulant, either Xarelto or Eliquis. I will leave that up to Dr. Seay. Echocardiogram is pending. We should also consider Betapace or cardioversion for atr ial fibrillation remains rapid. We will see how she does with the beta-blockers for now. 2.Acute on chronic systolic congestive heart failure. Last ejection fraction 20-25%. I think patidena nt is definitely a candidate for catheterization and possibly AICD down the road. We may have to clyde l with this as an outpatient. We will see what her echocardiogram shows today. She is on the approp riate medical therapy with Lipitor, losartan, metoprolol, Plavix, and Lasix. She is being diuresed. 3.History of cerebrovascular accident. 4.Hypertension, well controlled. 5.Dyslipidemia, well controlled. 6.Anxiety. 7.Morbid obesity. 8.I will continue to follow her along with Dr. Seay. We will see what the echocardiogram shows first. LIBBY/BAR Voice ID: [id number] Report ID: [id number]
[2019-10-30 05:37] LABS: BUN Blood Urea Nitrogen 13 mg/dL (7-18); Bicarbonate 35 mmol/L (21-32); Glucose Level 99 mg/dL (74-106); Magnesium 1.8 mg/dL (1.8-2.4); Potassium 3.9 mmol/L (3.5-5.1); Sodium Level 142 mmol/L (136-145)
[2019-10-30] MEDS ORDERED: MAGNESIUM SULFATE 1 gm IVPB 1 GM/100 ML BAG IV ONE (06:27)
[2019-10-30 06:29] VITALS: BMI 56.8
--- NOTE | 2019-10-30 08:15 | ECHO ---
HEIGHT: 5 ft 9 in WEIGHT: 385 lb 0 oz DATE OF STUDY: 10/28/[address]: Freddy Seay MD 2-DIMENSIONAL: YES M.MODE: YES DOPPLER: YES COLOR FLOW: YES TDS: YES PORTABLE: NO DEFINITY: NO BUBBLE STUDY: NO DIAGNOSIS: CONGESTIVE HEART FAILURE, ATRIAL FIBRILLATION CARDIAC HISTORY: CATHERIZATION: NO SURGERY: NO PROSTHETIC VALVE: NO PACEMAKER: NO MEASUREMENTS (cm) DIASTOLIC (NORMALS) SYSTOLIC (NORMALS) IVSd 1.3 (0.6-1.2) LA Diam 4.6 (1.9-4.0) LVEF 26% LVIDd 8.0 (3.5-5.7) LVIDs 6.9 (2.0-3.5) %FS 13% LVPWd 1.3 (0.6-1.2) Ao Diam 2.7 (2.0-3.7) 2 DIMENSIONAL ASSESSMENT: RIGHT ATRIUM: NORMAL LEFT ATRIUM: DILATED RIGHT VENTRICLE: NORMAL LEFT VENTRICLE: DILATED TRICUSPID VALVE: NORMAL MITRAL VALVE: MITRAL ANNULAR CALCIFICATION PULMONIC VALVE: NORMAL AORTIC VALVE: NORMAL PERICARDIAL EFFUSION: NONE AORTIC ROOT: NORMAL LEFT VENTRICULAR WALL MOTION: SEVERE GLOBAL HYPOKINESIS. DOPPLER/COLOR FLOW: NORMAL COMMENTS: SEVERE GLOBAL HYPOKINESIS. SEVERE LEFT ATRIAL AND LEFT VENTRICLE DILATATION. LEFT VENTRICULAR EJECTION FRACTION 20-25%. MITRAL ANNULAR CALCIFICATION. TECHNOLOGIST: Deja DYKES
[2019-10-30 08:42] VITALS: O2SAT 92
[2019-10-30] MEDS ORDERED: POTASSIUM CL SA 10 MEQ TAB PO ONE (09:00)
[2019-10-30] MEDS: FUROSEMIDE 40 MG TABLET PO SCH (09:12)
[2019-10-30] MEDS: LOSARTAN POTASSIUM 50 MG TABLET PO SCH (09:13)
[2019-10-30] MEDS: ATORVASTATIN 40 MG TAB PO SCH (09:13)
[2019-10-30] MEDS: METOPROLOL TAR 25 MG TAB PO SCH (09:13)
[2019-10-30] MEDS: CLOPIDOGREL 75 MG TABLET PO SCH (09:13)
[2019-10-30] MEDS: APIXABAN 5 MG TABLET PO SCH (09:14)
[2019-10-30 09:16] VITALS: BP 151/91
[2019-10-30 09:33] VITALS: TEMP 96.9
--- NOTE | 2019-10-30 15:15 | P.DS ---
Admission Date: 10/28/19 Discharge Date: 10/30/19 Disposition: ROUTINE DISCHARGE Discharge Condition: GOOD Reason for Admission: Shortness of breath in AFib Consultations: Cardiology-Dr. Marcus Procedures: CXR: FINDINGS: Portable technique limits examination quality. Mild to moderate pulmonary edema. The heart is significantly enlarged. No displaced fractures. IMPRESSION: Moderate CHF. ECHO: EF 25% LEFT VENTRICULAR WALL MOTION: SEVERE GLOBAL HYPOKINESIS. DOPPLER/COLOR FLOW: NORMAL COMMENTS: SEVERE GLOBAL HYPOKINESIS. SEVERE LEFT ATRIAL AND LEFT VENTRICLE DILATATION. LEFT VENTRICULAR EJECTION FRACTION 20-25%. MITRAL ANNULAR CALCIFICATION. Medical Problem List: Shortness of breath secondary to atrial fibrillation with RVR complicated with acute on chronic systolic CHF Hypertension Hyperlipidemia Suspect underlying obstructive sleep apnea Brief History of Present Illness: 54-year-old female presented to emergency room with shortness of breath. Patient found to have atrial fibrillation with RVR. Hospital Course: Patient presented with atrial fibrillation with RVR. Patient seen and evaluated by Cardiology. Patient was placed on anti coagulation therapy-Eliquis. Patient was stable on a metoprolol. Ejection fraction within normal range. No further intervention was required. At discharge patient will continue with Eliquis 5 mg 1 pill twice daily, metoprolol 25 mg daily, losartan 25 mg daily, and Lipitor 40 mg daily. Patient will follow up with cardiology in 1 week to follow up hospitalization. Prior to discharge social work help the patient to get assistance on medication specifically Eliquis. This will need to be followed closely as an outpatient. Patient previously on Plavix. This will be discontinued at discharge pre Patient also found to have acute on chronic systolic CHF. Patient was given treatment with improvement. At discharge will recommend 1500 cc per day fluid restriction and low-salt diet. Recommend to monitor her weight daily. If her weight increases by more than 5 lb adjustments in her medication may be required. At discharge she will continue with Lasix 40 mg daily. Further adjustment can be done by her PCP or cardiology. Patient with hyperlipidemia. At discharge she will continue with Lipitor 40 mg daily. Patient likely with underlying obstructive sleep apnea. Recommend follow up with pulmonology as an outpatient to further evaluate. Patient will require sleep study to further address. Patient with hypertension. As recommended above patient will continue with metoprolol 25 mg daily and losartan 25 mg daily. Recommend to maintain blood p ressure less 150/80. Further adjustment can be done by her PCP. Vital Signs/Physical Exam: Temp Pulse Resp BP Pulse Ox 96.9 F 94 H 18 151/91 H 92 10/30/19 08:00 10/30/19 09:13 10/30/19 08:00 10/30/19 09:13 10/30/19 08:00 General: Alert, In no apparent distress, Oriented x3, Cooperative HEENT: Atraumatic Neck: Supple Respiratory: Clear to auscultation bilaterally, Normal air movement Cardiovascular: Irregular heart rate/rhythm (Atrial fibrillation rate controlled) Gastrointestinal: Normal bowel sounds, Soft and benign, Non-distended Neurological: Normal speech, Normal strength at 5/5 x4 extr, Normal tone, Normal affect Laboratory Data at Discharge: WBC 7.3 K/uL (4.3-10.9) 10/28/19 07:55 Hgb 14.5 g/dL (12.0-15.0) 10/28/19 07:55 Hct 46.1 % (36.0-45.0) H 10/28/19 07:55 Plt Count 189 K/uL (152-406) 10/28/19 07:55 PT 15.3 SECONDS (9.5-12.5) H 10/28/19 07:55 INR 1.30 10/28/19 07:55 Sodium 142 mmol/L (136-145) 10/30/19 05:03 Potassium 3.9 mmol/L (3.5-5.1) 10/30/19 05:03 BUN 13 mg/dL (7-18) 10/30/19 05:03 Creatinine 0.76 mg/dL (0.55-1.3) 10/30/19 05:03 Glucose 99 mg/dL (74-106) 10/30/19 05:03 Phosphorus 3.6 mg/dL (2.5-4.9) 10/29/19 05:02 Magnesium 1.8 mg/dL (1.8-2.4) 10/30/19 05:03 Total Bilirubin 0.7 mg/dL (0.2-1.0) 10/28/19 07:55 AST 29 U/L (15-37) 10/28/19 07:55 ALT 50 U/L (12-78) 10/28/19 07:55 Alkaline Phosphatase 74 U/L (45-117) 10/28/19 07:55 Troponin I 0.24 ng/mL (0.0-0.045) H 10/29/19 05:02 Triglycerides 64 mg/dL (<150) 10/29/19 05:02 Cholesterol 84 mg/dL (<200) 10/29/19 05:02 HDL Cholesterol 35 mg/dL (40-60) L 10/29/19 05:02 Cholesterol/HDL Ratio 2.40 10/29/19 05:02 Home Medications: Albuterol Sulfate [Proair Hfa] 8.5 gm IH Q6HP PRN 10/28/19 Atorvastatin Calcium 40 mg PO DAILY 10/28/19 Furosemide 40 mg PO DAILY 10/28/19 Losartan Potassium 25 mg PO DAILY 10/28/19 Metoprolol Tartrate 25 mg PO DAILY 10/28/19 hydrOXYzine HCL [Atarax*] 25 mg PO Q6HP PRN 10/28/19 Apixaban [Eliquis] 5 mg PO BID #60 tablet 10/30/19 New Medications: Apixaban [Eliquis] 5 mg PO BID #60 tablet Patient Discharge Instructions: 1. Follow up in 1 week with her PCP. 2. Patient presented with atrial fibrillation with RVR. Patient seen and evaluated by Cardiology. Patient was placed on anti coagulation therapy-Eliquis. Patient was stable on a metoprolol. Ejection fraction within normal range. No further intervention was required. At discharge patient will continue with Eliquis 5 mg 1 pill twice daily, metoprolol 25 mg daily, losartan 25 mg daily, and Lipitor 40 mg daily. Patient will follow up with cardiology in 1 week to follow up hospitalization. Prior to discharge social work help the patient to get assistance on medication specifically Eliquis. This will need to be followed closely as an outpatient. Plavix discontinued at discharge. 3. Patient also found to have acute on chronic systolic CHF. Patient was given treatment with improvement. At discharge will recommend 1500 cc per day fluid restriction and low-salt diet. Recommend to monitor her weight daily. If her weight increases by more than 5 lb adjustments in her medication may be required. At discharge she will continue with Lasix 40 mg daily. Further adjustment can be done by her PCP or cardiology. 4. Patient with hyperlipidemia. At discharge she will continue with Lipitor 40 mg daily. 5. Patient likely with underlying obstructive sleep apnea. Recommend follow up with pulmonology as an outpatient to further evaluate. Patient will require sleep study to further address. 6. Patient with hypertension. As recommended above patient will continue with metoprolol 25 mg daily and losartan 25 mg daily. Recommend to maintain blood pressure less 150/80. Further adjustment can be done by her PCP. Diet: AHA Activity: Ad mary jo Time spent managing pt's care (in minutes): 55
--- NOTE | 2019-10-30 16:14 | PN ---
Date of Progress Note: 10/30/2019 Ms. Betancourt is a patient who has acute on chronic systolic congestive heart failure with an ejectio n fraction of 20% to 25%. She came in with CHF exacerbation. She has a history of hypertension, CVA , dyslipidemia, and anxiety. She also was noted to be in atrial fibrillation of unknown duration. S he is on a beta-sowmya right now. I think she needs to be anticoagulated with Eliquis and/or Xarelt o considering she has very high CHADS score. Her atrial fibrillation rate has been controlled. I th ink beta-blockade anticoagulation is the way to go. She obviously needs to be on Lasix p.o. at home. She was diuresed. She is feeling well. Ms. Betacnourt as far as I am concerned can go home wheneve r it is okay with Dr. Wheatley. She will be on SUZY inhibitors, beta-blockers, Lasix. I am going to se e her in the office in the next week or two. At one point, if she does not improve, we should consid er Entresto, and if that does not help, we should consider a cath, possible defibrillator down the ro ad. LIBBY/BAR Voice ID: [id number] Report ID: [id number]
== END 2019-10-30 17:14 | disposition home or self-care (01) | DRG 308 ==
LOC: SUPCPDRO 06:44 → ER 06:44 → ERHOLD 08:44 → 2ND 10:47
PROVIDERS: ADMIT Internal Medicine Sleep Medicine; ATTEND Family Medicine
DX: I48.91 Unspecified atrial fibrillation (principal); I50.23 Acute on chronic systolic (congestive) heart failure; Z68.42 Body mass index [BMI] 45.0-49.9, adult; I11.0 Hypertensive heart disease with heart failure; E78.5 Hyperlipidemia, unspecified; Z79.899 Other long term (current) drug therapy; Z86.73 Personal history of transient ischemic attack (TIA), and cerebral infarction without residual deficits; F41.9 Anxiety disorder, unspecified; E66.01 Morbid (severe) obesity due to excess calories; E11.9 Type 2 diabetes mellitus without complications; I95.9 Hypotension, unspecified; G47.33 Obstructive sleep apnea (adult) (pediatric); Z79.01 Long term (current) use of anticoagulants
CPT/HCPCS: 36415; 71045; 80048; 80061; 80076; 83735; 83880; 84100; 84443; 84484; 85025; 85610; 93005; 93306; 96374; 99285; J1160; J1940; J3475

== ENCOUNTER 2020-06-24 21:50 | Inpatient (IN) | payer SELFPAY ==
--- NOTE | 2020-06-24 22:55 | EDPHYS ---
Physician Documentation [facility] Name: Lolis Betancourt Age: 55 yrs Sex: Female : 1965 Arrival Date: 06/24/2020 Time: 21:53 Bed 15 Private MD: ED Physician Junaid Frey HPI: 06/24 22:28 This 55 yrs old Black Female presents to ER via Wheelchair with complaints of Leg kb Swelling, Insect Bite. 22:29 The patient presents with an abscess of the left reid and medial aspect of left thigh, kb The patient presents with cellulitis of the left leg. Description: draining, erythematous, hot, swollen. Onset: The symptoms/episode began/occurred 1 week(s) ago. Possible cause(s): unknown. Associated signs and symptoms: Pertinent positives: drainage, erythema, swelling. Modifying factors: the symptoms are alleviated by nothing, the symptoms are aggravated by pressure, squeezing the lesion and expressing the contents, touching. Severity of symptoms: At their worst the symptoms were moderate, in the emergency department the symptoms are unchanged. The patient has not experienced similar symptoms in the past. The patient has not recently seen a physician. 22:33 Pt states she developed an abscess to right inner thigh from an insect bite and was put kb on clindamycin. STates the clindamycin was working, but it caused diarrhea and nausea so she stopped taking it. States that abscess rubbed on her left inner thigh and she developed an abscess there as well. That abscess started a week ago and now she is having redness, swelling and warmth to entire leg. Moderate amount of drainage coming from abscess to left inner thigh. Small abscess on left reid as well.. Historical: - PMHx: 22:10 Anxiety; CHF; CVA; Hyperlipidemia; Hypertension; ca1 - Immunization history:: Adult Immunizations up to date, Flu vaccine is not up to date. - Social history:: Smoking status: Patient/guardian denies using tobacco, the patient reports quitting approximately 8 years ago. ROS: 22:27 Constitutional: Negative for fever, chills, and weight loss, Cardiovascular: Negative kb for chest pain, palpitations, and edema, Respiratory: Negative for shortness of breath, cough, wheezing, and pleuritic chest pain, Abdomen/GI: Negative for abdominal pain, nausea, vomiting, diarrhea, and constipation, MS/Extremity: Negative for injury and deformity, Neuro: Negative for headache, weakness, numbness, tingling, and seizure. 22:27 Skin: Positive for abscess, cellulitis, of the left leg. Exam: 22:27 Constitutional: This is a well developed, well nourished patient who is awake, alert, kb and in no acute distress. Head/Face: Normocephalic, atraumatic. Chest/axilla: Normal chest wall appearance and motion. Nontender with no deformity. No lesions are appreciated. Cardiovascular: Regular rate and rhythm with a normal S1 and S2. No gallops, murmurs, or rubs. Normal PMI, no JVD. No pulse deficits. Respiratory: Lungs have equal breath sounds bilaterally, clear to auscultation and percussion. No rales, rhonchi or wheezes noted. No increased work of breathing, no retractions or nasal flaring. Abdomen/GI: Soft, non-tender, with normal bowel sounds. No distension or tympany. No guarding or rebound. No evidence of tenderness throughout. MS/ Extremity: Pulses equal, no cyanosis. Neurovascular intact. Full, normal range of motion. Neuro: Awake and alert, GCS 15, oriented to person, place, time, and situation. Cranial nerves II-XII grossly intact. Motor strength 5/5 in all extremities. Sensory grossly intact. Cerebellar exam normal. Normal gait. 22:27 Skin: abscess, that is small, that is moderate sized, of the left reid, with drainage, with fluctuance, that is moderate, with surrounding cellulitis, that is moderate, cellulitis, that is moderate, on the left leg. Vital Signs: 22:07 BP 102 / 84; Pulse 88; Resp 20 S; Temp 97.3(TE); Pulse Ox 97% on R/A; Weight 136.08 kg ca1 (R); Height 5 ft. 10 in. (177.80 cm) (R); Pain 8/10; 23:00 BP 108 / 88; Pulse 83; Resp 16; Pulse Ox 95% on R/A; zb 06/25 00:00 BP 111 / 87; Pulse 74; Resp 16; Pulse Ox 97% on R/A; zb 06/24 22:07 Body Mass Index 43.05 (136.08 kg, 177.80 cm) ca1 MDM: 06/24 21:59 Patient medically screened. kb 22:26 Data reviewed: vital signs, nurses notes. Data interpreted: Pulse oximetry: on room air kb is 97 %. Interpretation: normal. Counseling: I had a detailed discussion with the patient and/or guardian regarding: the historical points, exam findings, and any diagnostic results supporting the discharge/admit diagnosis, lab results, the need for further work-up and treatment in the hospital. 22:50 Physician consultation: John Angelo MD was contacted at 22:50, regarding admission, kb to the medical/surgical unit. patient's condition, and will see patient in ED. 06/24 22:06 Order name: Blood Culture Adult (2) kb 06/24 22:06 Order name: CBC with Diff; Complete Time: 02:13 kb 06/24 22:06 Order name: Basic Metabolic Panel; Complete Time: 23:05 kb 06/24 22:06 Order name: Lactate; Complete Time: 23:24 kb 06/24 22:06 Order name: Procalcitonin; Complete Time: 02:13 kb 06/24 22:13 Order name: Wound Culture kb 06/24 22:06 Order name: IV Start; Complete Time: 22:42 kb 06/24 23:17 Order name: COVID-19 dm5 06/24 23:28 Order name: Manual Differential; Complete Time: 02:13 EDMS 06/25 00:32 Order name: CONS Physician Consult EDMS Administered Medications: 22:22 Drug: vancoMYCIN 1 grams Route: IVPB; Infused Over: 2 hrs; Site: right antecubital; zb 06/25 00:39 Follow up: Response: No adverse reaction ll2 Disposition: 02:13 Co-signature as Attending Physician, Junaid Frey MD. pkl Disposition: 06/24/20 22:55 Hospitalization ordered by John Angelo for Inpatient Admission. Preliminary diagnosis are Cellulitis of left lower limb, Cutaneous abscess of left lower limb. - Bed requested for Telemetry/MedSurg (Inpatient). - Status is Inpatient Admission. ll2 - Condition is Stable. - Problem is new. - Symptoms are unchanged. Signatures: Dispatcher [employer] [facility] Sharlene Garrett FNP-C FNP-Ckb Webb, Martha, RN RN mw Lam, Pin, MD MD pkMaria De Jesus Khan RN RN ca1 Linscombe, Yaneth, RN RN ll2 Marianna Graf RN RN zb Corrections: (The following items were deleted from the chart) 06/24 22:14 22:10 Allergies: Clindamycin; ca1 zb 22:28 22:27 Skin: abscess, that is moderate sized, of the medial aspect of left thigh, with kb drainage, with fluctuance, with surrounding cellulitis, that is moderate, cellulitis, that is moderate, on the left leg, kb 23:28 23:28 CBC Smear Scan ordered. EDNH EDMS 06/25 00:33 06/24 22:55 Hospitalization Ordered by John Angelo MD for Inpatient Admission. Preliminary diagnosis is Cellulitis of left lower limb; Cutaneous abscess of left lower limb. Bed requested for Telemetry/MedSurg (Inpatient). Status is Inpatient Admission. Condition is Stable. Problem is new. Symptoms are unchanged. kb 06/25 01:01 00:33 06/24/2020 22:55 Hospitalization Ordered by John Angelo MD for Inpatient ll2 Admission. Preliminary diagnosis is Cellulitis of left lower limb; Cutaneous abscess of left lower limb. Bed requested for Telemetry/MedSurg (Inpatient). Status is Inpatient Admission. Condition is Stable. Problem is new. Symptoms are unchanged. janiya
--- NOTE | 2020-06-24 22:55 | ER ---
Nurse's Notes [facility] Name: Lolis Betancourt Age: 55 yrs Sex: Female : 1965 Arrival Date: 06/24/2020 Time: 21:53 Bed 15 Private MD: Diagnosis: Cellulitis of left lower limb;Cutaneous abscess of left lower limb Presentation: 06/24 22:07 Chief complaint: Patient states: Swelling and wound on L leg x 1 week. Redness and ca1 swelling on L Lower leg. Reports pain on L lower leg. Coronavirus screen: Client denies travel out of the [place] in the last 14 days. At this time, the client does not indicate any symptoms associated with coronavirus-19. Ebola Screen: Patient negative for fever greater than or equal to 101.5 degrees Fahrenheit, and additional compatible Ebola Virus Disease symptoms Patient denies exposure to infectious person. Patient denies travel to an Ebola-affected area in the 21 days before illness onset. No symptoms or risks identified at this time. Initial Sepsis Screen: Does the patient meet any 2 criteria? No. Patient's initial sepsis screen is negative. Does the patient have a suspected source of infection? No. Patient's initial sepsis screen is negative. Risk Assessment: Do you want to hurt yourself or someone else? Patient reports no desire to harm self or others. Onset of symptoms was June 24, 2020. 22:07 Method Of Arrival: Wheelchair ca1 22:07 Acuity: LYRIC 3 ca1 Historical: - PMHx: 22:10 Anxiety; CHF; CVA; Hyperlipidemia; Hypertension; ca1 - Immunization history:: Adult Immunizations up to date, Flu vaccine is not up to date. - Social history:: Smoking status: Patient/guardian denies using tobacco, the patient reports quitting approximately 8 years ago. Screenin:00 Abuse screen: Denies threats or abuse. Denies injuries from another. Nutritional zb screening: No deficits noted. Tuberculosis screening: No symptoms or risk factors identified. Fall Risk No fall in past 12 months (0 pts). No secondary diagnosis (0 pts). IV access (20 points). Ambulatory Aid- Crutches/Cane/Walker (15 pts). Gait- Impaired (20 pts.). Mental Status- Oriented to own ability (0 pts). Total [place] Fall Scale indicates Low Risk Score (25-44 pts). Fall prevention measures have been instituted. Side Rails Up X 2 Placed close to Nursing Station Frequent Obs/Assesments occuring Family Present and informed to notify staff if they need to leave bedside As available Patient and Family Educated on Fall Prevention Program and strategies. Assessment: 22:00 General: Appears in no apparent distress. comfortable, Behavior is calm, cooperative, zb appropriate for age. Pain: Complains of pain in LLE Pain does not radiate. Pain currently is 0 out of 10 on a pain scale. at worst was 8 out of 10 on a pain scale. Quality of pain is described as heavy, pressure, Pain began 2-3 days ago. Is episodic, Aggravated by increased activity, repositioning, weight bearing. Neuro: Level of Consciousness is awake, alert, obeys commands, Oriented to person, place, time, situation. Cardiovascular: Capillary refill < 3 seconds in bilateral fingers Patient's skin is warm and dry. Cardiovascular: Pulses are 3+ in left leg and right leg. Respiratory: Airway is patent Respiratory effort is even, unlabored, Respiratory pattern is regular, symmetrical. GI: : No signs and/or symptoms were reported regarding the genitourinary system. EENT: No signs and/or symptoms were reported regarding the EENT system. Derm: Skin abcesses located on left thigh, left reid, right thigh area- serous drainage noted. Skin is red, Skin temperature is Left leg hot to touch Wound noted left reid and medial aspect of left thigh and left leg, medial aspect of right thigh, right leg. Musculoskeletal: Circulation, motion, and sensation intact. Capillary refill < 3 seconds, in bilateral fingers. Range of motion: intact in all extremities. 23:00 Reassessment: Patient appears in no apparent distress at this time. Patient and/or zb family updated on plan of care and expected duration. Pain level reassessed. Patient is alert, oriented x 3, equal unlabored respirations, skin warm/dry/pink. family at bedside. c/o pain only with movement. discussed POC w/ family and patient. educated on the importance of completion of antibiotics. 23:45 Reassessment: ECP at patients bedside. explain POC to patient and family. zb 06/25 00:00 Reassessment: Patient appears in no apparent distress at this time. Patient and/or zb family updated on plan of care and expected duration. Pain level reassessed. Patient is alert, oriented x 3, equal unlabored respirations, skin warm/dry/pink. hospitalist dr. angelo at bedside discussion POC w/ patient. 00:40 Reassessment: attempted to call report, instructed MARC Reyez would call me back. ll2 00:59 Reassessment: report given to marc reyez. ll2 Vital Signs: 06/24 22:07 BP 102 / 84; Pulse 88; Resp 20 S; Temp 97.3(TE); Pulse Ox 97% on R/A; Weight 136.08 kg ca1 (R); Height 5 ft. 10 in. (177.80 cm) (R); Pain 8/10; 23:00 BP 108 / 88; Pulse 83; Resp 16; Pulse Ox 95% on R/A; zb 06/25 00:00 BP 111 / 87; Pulse 74; Resp 16; Pulse Ox 97% on R/A; zb 06/24 22:07 Body Mass Index 43.05 (136.08 kg, 177.80 cm) ca1 ED Course: 06/24 20:00 Patient has correct armband on for positive identification. Placed in gown. Bed in low zb position. Call light in reach. Side rails up X 1. Adult w/ patient. Pulse ox on. NIBP on. Door closed. Noise minimized. Warm blanket given. PO fluids given. 21:53 Patient arrived in ED. ds1 21:59 Sharlene Garrett FNP-C is [facility]. kb 21:59 Junaid Fitzgerald MD is Attending Physician. kb 22:09 Triage completed. ca1 22:10 Arm band placed on right wrist. ca1 22:12 Marianna Graf RN is Primary Nurse. zb 22:39 No provider procedures requiring assistance completed. Inserted saline lock: 20 gauge zb in right antecubital area, using aseptic technique. 22:55 John Angelo MD is Hospitalizing Provider. kb 23:33 Notified ED physician of a critical lab result(s). notified dr. fitzgerald of lactic acid 3.1 zb and wbc 23.1. 06/25 01:00 Patient admitted, IV remains in place. ll2 Administered Medications: 06/24 22:22 Drug: vancoMYCIN 1 grams Route: IVPB; Infused Over: 2 hrs; Site: right antecubital; zb 06/25 00:39 Follow up: Response: No adverse reaction ll2 Outcome: 06/24 22:55 Decision to Hospitalize by Provider. kb 06/25 01:00 Admitted to Med/surg accompanied by nurse, via wheelchair, Report called to MARC Reyez ll2 Condition: stable 01:01 Patient left the ED. ll2 Signatures: Sharlene Garrett FNP-C FNP-Wendy Martinez ds1 Maria De Jesus Lux RN RN ca1 Yaneth Gallardo RN RN ll2 Marianna Graf RN RN zb Corrections: (The following items were deleted from the chart) 06/24 22:14 22:10 Allergies: Clindamycin; ca1 zb
[2020-06-24] MEDS ORDERED: NA CHLORIDE 0.9% 250 ML ONE (22:57)
[2020-06-24] MEDS ORDERED: VANCOMYCIN 1 GM/VIAL ONE (22:57)
[2020-06-24 23:03] LABS: Potassium 3.6 mmol/L (3.5-5.1)
[2020-06-24 23:22] LABS: Basophils % 0.3 % (0-1.3); Hematocrit 39.3 % (36.0-45.0); Lymphocytes % 4.5 % (15.3-44.8); MPV 9.6 fL (7.6-11.3); RBC Red Blood Cell Count 5.47 M/uL (3.86-4.86)
[2020-06-24 23:33] LABS: Anisocytosis 1+; Blood Morphology Comment NOTED (NOT SEEN); Hypochromasia 2+; Ovalocytes 1+; Platelet Estimate ADEQ; Poikilocytosis 1+; Target Cells 1+
--- NOTE | 2020-06-25 00:45 | P.HP ---
Certification for Inpatient Patient admitted to: Inpatient With expected LOS: >2 Midnights Practitioner: I am a practitioner with admitting privileges, knowledge of patient current condition, hospital course, and medical plan of care. Services: Services provided to patient in accordance with Admission requirements found in Title 42 Section 412.3 of the Code of Federal Regulations Patient History Date of Service: 06/25/20 Reason for admission: LLE cellulitis & Abscess, failed outpatient therapy History of Present Illness: 55yo F, PMH: HTN, prior CVA (no residual loss), anxiety, CHF, Afib on eliquis, presents to ED due to LLE redness, swelling, and pain. Pt states she had a skin infection on her RLE just above knee ~2 weeks ago. She was seen and treated with PO Clindamycin. She stopped after ~5 days due to heartburn and diarrhea (2 episodes/day). She reports side effects resolved, no longer having diarrhea. She then began to have pain, swelling and redness at similar area on LLE due to rubbing. This significantly worsened and spread downward to her lower leg over the past 2 days. She reports chills at home. She also reports her leg has been oozing slightly over the past 2 days as well. She otherwise denies chest pain, no SOB, no abdominal pain, normal BM yesterday, no dysuria, no prior skin infections. In the ED, blood work notable for significant leukocytosis (23.1) with bandemia (5), mild anemia (11.2), elevated lactate (3.1), an elevated pro calcitonin (3.55). Noted to be afebrile. Allergies No Known Drug Allergies Allergy (Verified 09/13/15 23:09) Unknown No Known Allergies Allergy (Uncoded 09/13/15 20:08) Unknown Home Medications: Albuterol Sulfate [Proair Hfa] 8.5 gm IH Q6HP PRN 10/28/19 Atorvastatin Calcium 40 mg PO DAILY 10/28/19 Furosemide 40 mg PO DAILY 10/28/19 Losartan Potassium 25 mg PO DAILY 10/28/19 Metoprolol Tartrate 25 mg PO DAILY 10/28/19 hydrOXYzine HCL [Atarax*] 25 mg PO Q6HP PRN 10/28/19 Apixaban [Eliquis] 5 mg PO BID #60 tablet 10/30/19 - Past Medical/Surgical History Diabetic: No -: systolic CHF -: CVA -: HTN -: anxiety -: Afib Past Surgical History: Patient denies surgical history - Family History Mother -: Kidney disease Father -: Hypertension, Liver disease, Kidney disease - Social History Smoking Status: Former smoker (Quit 8 years ago) Alcohol use: No CD- Drugs: No Caffeine use: No Place of Residence: Home Review of Systems 10-point ROS is otherwise unremarkable Physical Examination - Physical Exam General: Alert, Oriented x3, Obese HEENT: Sclerae nonicteric Respiratory: Clear to auscultation bilaterally, Other (94-97% on RA) Cardiovascular: Normal S1 S2, No murmurs, Edema (RLE: trace to 1+ up to knee, LLE: 2+ to lower thigh) Gastrointestinal: Soft and benign, Non-distended, No tenderness Musculoskeletal: Tenderness (LLE from lower thigh down to just above ankle) Integumentary: Skin lesion (medial left thigh - concern for abscess, slight purulent drainage. RLE: medial right thigh - ~5cm diameter lesion, no surrounding erythema), Erythema (from L lower thigh down to ankle, sparing upper calf), Other (~1cm diameter bullae on anterior lower leg above ankle.) Neurological: Normal speech, Normal affect - Studies Laboratory Data (last 24 hrs) 06/24/20 22:35: Sodium 137, Potassium 3.6, BUN 18, Creatinine 1.09, Glucose 139 H 06/24/20 22:35: WBC 23.1 H*, Hgb 11.2 L, Hct 39.3, Plt Count 202 Assessment and Plan - Advance Directives Does patient have a Living Will: No Does patient have a Durable POA for Healthcare: No Physician Review Additional Text: Left lower extremity cellulitis and abscess Chronic systolic CHF (HFrEF), EF: 20-25% Afib, on Eliquis Hypertension Anxiety h/o CVA -SIRS 1/, qSOFA: 0, does not appear septic -given IV Vanc in ED, continue with Vanc. cultures obtained in ED, did not receive IV fluid in ED -concern for abscess on medial L thigh, general surgery consulted -will keep NPO, gentle IVF given h/o CHF, edema -lactate 3.1, will repeat lactate -last took Eliquis morning of 06/24, reports only takes it once a day, will hold for potential I&D -confirm home medications and restart as appropriate -pt denied h/o afib, but on chart review, she was diagnosed ~6 months ago -last TTE in October 2019: EF: 20-25%, monitor fluid balance closely VTE: took home Eliquis 06/24 AM, can start Lovenox (if no I&D). unable to do SCDs given location of lesions/pain Code: Full Dispo: anticipate hospitalization >2days Time Spent Managing Pts Care (In Minutes): 60
[2020-06-25] MEDS ORDERED: NA CHLORIDE 0.9% 1,000 ML IV SCH (01:36)
[2020-06-25 02:56] VITALS: BMI 49.4
[2020-06-25] MEDS ORDERED: METOPROLOL TARTRATE 5 MG/5 ML INJ IV STA (03:08)
[2020-06-25] MEDS: NA CHLORIDE 0.9% 1,000 ML IV SCH ×2 (03:35→18:26)
[2020-06-25 05:39] LABS: Absolute Lymphocytes (CBC) 1.3 K/uL (0.7-4.9); Basophils % 0.2 % (0-1.3); Hematocrit 38.6 % (36.0-45.0); Lymphocytes % 5.7 % (15.3-44.8); MPV 9.4 fL (7.6-11.3); RBC Red Blood Cell Count 5.36 M/uL (3.86-4.86)
[2020-06-25 05:45] LABS: Protime INR 1.94
[2020-06-25 06:21] LABS: Albumin 2.4 g/dL (3.4-5.0); Bilirubin Total 1.6 mg/dL (0.2-1.0); Ferritin 70.6 ng/mL (8-388); Magnesium 1.7 mg/dL (1.8-2.4); Potassium 3.3 mmol/L (3.5-5.1); Protein, Total 6.9 g/dL (6.4-8.2)
[2020-06-25] MEDS: KCL 20 MEQ/100 mL IVPB 20 MEQ/100 ML BAG IV SCH ×2 (06:36→10:11)
--- NOTE | 2020-06-25 07:15 | RAD REPORT ---
EXAM DESCRIPTION: RAD - Chest Single View - 06/25/2020 6:56 am CLINICAL HISTORY: CHF, pneumonia COMPARISON: Portable October 28, 2019August 2015 TECHNIQUE: AP portable chest image was obtained 06/25/2020 6:56 am . FINDINGS: No peripheral mass or consolidation in the right lung field left lung field. Pronounced ca rdiac enlargement obscures the left lung base. Vasculature is mildly prominent. Trachea is midline. N o measurable pleural effusion and no pneumothorax. No acute bony abnormality seen. No acute aortic fi ndings suspected. IMPRESSION: Prominent cardiomegaly and mild vascular engorgement as seen on prior imaging. Mild CHF is possible. No focal pneumonia seen though the lower left lung field is obscured by the enlarged cardiac silhouet te.
[2020-06-25] MEDS ORDERED: MAGNESIUM SULFATE 1 gm IVPB 1 GM/100 ML BAG IV ONE (09:00)
[2020-06-25] MEDS ORDERED: VANCOMYCIN 1.75 GM in NA CHLORIDE 0.9% 500 ML IVPB SCH (09:00)
[2020-06-25] MEDS ORDERED: POTASSIUM PHOS IN 0.9 % NACL 15 MMOL/250 ML BAG IV ONE (09:00)
--- NOTE | 2020-06-25 09:01 | CON ---
Addendum: Dr. Smith talked to the patient. She still refuses to have surgery done today. She stil l wants to wait until tomorrow. The risk of loss of limb, sepsis, septic shock, necrotizing fasciiti s were explained to the patient for delaying the procedure. We will await her agreement and then if she agrees for tomorrow will do it tomorrow; if she agrees sooner, we will do it sooner. ZACHARY/BAR Voice ID: [id number] Report ID: [id number]
--- NOTE | 2020-06-25 09:18 | PREOPCON ---
Date of Consultation: 06/25/2020 Reason For Consultation: Infection, left leg. History Of Present Illness: Patient is a 55-year-old female with multiple medical problems, presents to the emergency room due to increasing left medial thigh redness, swelling, and pain. She had this infection started about 2 weeks ago. She was seen in an outpatient clinic in [place] and started o n oral clindamycin; however, she stopped it after 5 days secondary to side effects and the pain, swel ling, and redness continued to increase and she came to the emergency room, was admitted. Sepsis wor kup was done and I was consulted this morning. She is awake, alert, in no acute distress at this nicole e. No sore throat, runny nose, cough, headaches, or dizziness. No chest pain. No fever or chills a t this time. Review of Systems: Otherwise unremarkable. Past Medical History: Significant for systolic CHF, CVA, hypertension, atrial fibrillation, anxiety. Past Surgical History: The patient denies surgical history. Allergies: NONE. Medications: Patient is on Eliquis. Social History: Patient does not currently smoke, had in the past. Denies drinking alcohol. Family History: Significant for hypertension and kidney disease and liver disease. Physical Examination: Vital Signs: Blood pressure is 112-130 systolic and diastolic is normal, heart rate is in the 120s. She is afebrile. General: She is awake, alert, and oriented x3. Head and Neck: Cranial nerves 2 through 12 are grossly within normal limits. No neck masses. No JV D. Throat clear. Neck is supple. Chest: Clear. Heart: S1, S2. Abdomen: Soft. Extremities: Neurovascularly intact. In the left medial thigh just above the popliteal crease, ther e is significant erythema, warmth, edema, fluctuance, tenderness, redness. There is a small necrotic skin area. She has a 1 cm blister on the anterior lower leg above the ankle. There is some redness in the left lower leg as well. Laboratory Data: Her white count is 23.1 on admission, currently is 22.7. She had a left shift. IN R is 1.94. Her lactic acid is 2.1, procalcitonin is 3.16. Assessment: Abscess and cellulitis, left lower extremity. Recommendations: I would recommend n.p.o. IV fluid, IV antibiotics, and to the OR for incision and d rainage and debridement; however, at this time, patient is refusing surgery, states that she wants to talk to her family members as well as her doctor. I discuss her wishes with the nursing staff as we ll as Dr. Smith who will talk to the patient and should she agree to the procedure, I will be happy to take care of her. She will be counseled soon by the primary care physician. We will await their decision. ZACHARY/BAR Voice ID: [id number] Report ID: [id number]
--- NOTE | 2020-06-25 10:29 | P.PN ---
Subjective Date of Service: 06/25/20 Chief Complaint: LLE cellulitis & Abscess, failed outpatient therapy Patient seen by Dr. He for I and D but she refused any surgery today. She has significant leukocytosis. She has tachycardic and meet criteria for SIRS. Physical Examination - Vital Signs Temperature: 97.1 F Blood Pressure: 130/66 Pulse: 119 Respirations: 16 Pulse Ox (%): 91 - Physical Exam General: In no apparent distress, Oriented x3, Obese Neck: JVD not distended Respiratory: Clear to auscultation bilaterally, Normal air movement Cardiovascular: Normal S1 S2 (Tachycardia, regular rhythm.), Edema (Bilateral lower extremity), Irregular heart rate/rhythm Gastrointestinal: Soft and benign, Non-distended, No tenderness Musculoskeletal: Erythema, Tenderness, Other (Redness, swelling and induration posterior medial aspect all of the left lower thigh) Integumentary: Other (Erythema and tenderness and blisters-left lower extremity.) Neurological: Normal speech, Normal strength at 5/5 x4 extr, Cranial nerves 3-12 intact - Studies Laboratory Data (last 24 hrs) 06/24/20 22:35: Sodium 137, Potassium 3.6, BUN 18, Creatinine 1.09, Glucose 139 H 06/24/20 22:35: WBC 23.1 H*, Hgb 11.2 L, Hct 39.3, Plt Count 202 Assessment And Plan - Current Problems (Diagnosis) (1) SIRS (systemic inflammatory response syndrome) Current Visit: Yes Status: Acute (2) Cellulitis and abscess of left leg Current Visit: Yes Status: Acute (3) Chronic systolic heart failure Current Visit: Yes Status: Acute (4) Atrial fibrillation Current Visit: No Status: Acute Qualifiers: Atrial fibrillation type: unspecified Qualified Code(s): I48.91 - Unspecified atrial fibrillation (5) Hypertension Current Visit: Yes Status: Acute - Plan Patient will need I and D given the severe leukocytosis and SIRS. She refused any surgery today stating she is no ready yet. Her last dose of Eliquis was 24 hrs ago. She is informed she stand the risk of getting more sick, more septic, development of necrotizing fascitis and worsen prognosis in the abscess is not addressed timely. She stated she wants to wait for tomorrow for surgery. Continue IV vancomycin. Add IV Cefepime. Pain management as needed. General surgery to follow. Follow blood cultures. Physician Review Additional Text: Left lower extremity cellulitis and abscess Chronic systolic CHF (HFrEF), EF: 20-25% Afib, on Eliquis Hypertension Anxiety h/o CVA -SIRS /, qSOFA: 0, does not appear septic -given IV Vanc in ED, continue with Vanc. cultures obtained in ED, did not receive IV fluid in ED -concern for abscess on medial L thigh, general surgery consulted -will keep NPO, gentle IVF given h/o CHF, edema -lactate 3.1, will repeat lactate -last took Eliquis morning of 06/24, reports only takes it once a day, will hold for potential I&D -confirm home medications and restart as appropriate -pt denied h/o afib, but on chart review, she was diagnosed ~6 months ago -last TTE in October 2019: EF: 20-25%, monitor fluid balance closely VTE: took home Eliquis 06/24 AM, can start Lovenox (if no I&D). unable to do SCDs given location of lesions/pain Code: Full Dispo: anticipate hospitalization >2days
[2020-06-25] MEDS: VANCOMYCIN 2 GM in NA CHLORIDE 0.9% 500 ML IVPB SCH ×2 (10:55→21:55)
[2020-06-25] MEDS: ACETAMINOPHEN 500 MG TAB PO PRN (15:14)
--- NOTE | 2020-06-25 16:10 | EKG ---
Test Date: 2020-06-25 Test Time: 03:41:51 First Aid Officer: ANGEL MEASUREMENT RESULTS: Intervals: Rate: 127 NV: 150 QRSD: 118 QT: 378 QTc: 549 [place]: P: 16 NV: 150 QRS: -5 T: 52 INTERPRETIVE STATEMENTS: Sinus tachycardia with frequent premature ventricular complexes and fusion complexes Incomplete left bundle branch block Borderline ECG Compared to ECG 10/28/2019 08:20:13 Fusion complex(es) now present Left bundle-branch block now present Atrial fibrillation no longer present Myocardial infarct finding no longer present Electronically Signed On 06-25-20 16:09:21 RESPITE PROVIDER by Jimenez Marcus
[2020-06-25] MEDS ORDERED: NA CHLORIDE 0.9% 250 ML IV PRN (18:00)
[2020-06-25] MEDS ORDERED: NA CHLORIDE 0.9% 250 ML ONE (18:18)
[2020-06-25] MEDS ORDERED: CEFEPIME 1 GM/VIAL IV SCH (21:00)
[2020-06-25] MEDS: CEFEPIME/SWI 1gm 10 ML IVP SCH (21:55)
[2020-06-26] MEDS: ACETAMINOPHEN 500 MG TAB PO PRN ×3 (00:26→12:08)
[2020-06-26 06:22] LABS: Potassium 3.8 mmol/L (3.5-5.1)
[2020-06-26 06:23] LABS: Magnesium 2.1 mg/dL (1.8-2.4)
[2020-06-26 06:24] LABS: Absolute Lymphocytes (CBC) 1.5 K/uL (0.7-4.9); Basophils % 0.3 % (0-1.3); Hematocrit 36.3 % (36.0-45.0); Lymphocytes % 8.3 % (15.3-44.8); MPV 9.6 fL (7.6-11.3); RBC Red Blood Cell Count 4.99 M/uL (3.86-4.86)
[2020-06-26] MEDS ORDERED: KCL 20 MEQ/100 mL IVPB 20 MEQ/100 ML BAG IV SCH (08:00)
[2020-06-26] MEDS: VANCOMYCIN 2 GM in NA CHLORIDE 0.9% 500 ML IVPB SCH ×2 (09:00→15:25)
[2020-06-26] MEDS ORDERED: APIXABAN 5 MG TABLET PO SCH (09:00)
[2020-06-26] MEDS: CEFEPIME/SWI 1gm 10 ML IVP SCH ×2 (09:17→22:56)
--- NOTE | 2020-06-26 11:51 | P.PN ---
Subjective Date of Service: 06/26/20 Chief Complaint: LLE cellulitis & Abscess, failed outpatient therapy Patient still refusing surgery. Leukocytosis has trended down. She states she feels better than yesterday and her appetite is coming back and has less pain in her left leg. Patient has been experienced runs of nonsustained V-tach. Physical Examination - Vital Signs Temperature: 96.7 F Blood Pressure: 128/83 Pulse: 127 Respirations: 18 Pulse Ox (%): 96 - Physical Exam General: Alert, In no apparent distress, Obese Neck: Supple, JVD not distended Respiratory: Clear to auscultation bilaterally, Normal air movement Cardiovascular: Normal S1 S2, Edema (Bilateral lower extremities), Irregular heart rate/rhythm Gastrointestinal: Normal bowel sounds, Soft and benign, Non-distended Musculoskeletal: Other (Multiple blisters noted on the left lower extremity from the thigh to the calf region.) Integumentary: Other (Areas of erythema, tenderness and induration at the posteriomedial aspect of the left thigh and calf.) Neurological: Normal strength at 5/5 x4 extr - Studies Microbiology Data (last 24 hrs): 06/24/20 22:40 Wound - Abscess Gram Stain - Final Assessment And Plan - Current Problems (Diagnosis) (1) SIRS (systemic inflammatory response syndrome) Current Visit: Yes Status: Acute (2) Cellulitis and abscess of left leg Current Visit: Yes Status: Acute (3) Chronic systolic heart failure Current Visit: Yes Status: Acute (4) Atrial fibrillation Current Visit: No Status: Acute Qualifiers: Atrial fibrillation type: unspecified Qualified Code(s): I48.91 - Unspecified atrial fibrillation (5) Hypertension Current Visit: Yes Status: Acute (6) Non-sustained ventricular tachycardia Current Visit: Yes Status: Acute - Plan Patient has been refusing surgery. Will get CT scan of the left lower extremity with IV contrast to evaluate the extent of abscesses. Her last dose of Eliquis was 48 hrs ago. She is informed she stand the risk of getting more septic, development of necrotizing fascitis and worsen prognosis if the abscesses are not addressed timely. Continue IV vancomycin and IV Cefepime. Cardiology consult for preop evaluation given chronic systolic heart failure and nonsustained VT. Pain management as needed. Follow blood cultures.
--- NOTE | 2020-06-26 14:45 | RAD REPORT ---
EXAM DESCRIPTION: CT - Lower Extremity W/ Cont - 06/26/2020 2:28 pm CLINICAL HISTORY: Left leg abscesses COMPARISON: None. TECHNIQUE: Computed axial tomography was obtained from above the left thigh to the left foot. 50 cc Isovue administered intravenously. Coronal and sagittal reconstruction All CT scans are performed using dose optimization technique as appropriate and may include automated exposure control or mA/KV adjustment according to patient size. FINDINGS: A 3.5 x 3.3 x 1.4 centimeter fluid collection is present within the medial subcutaneous ti ssues at the level above the left knee. A 4.5 by 8.5 x 1.7 centimeter fluid collection is present within the medial subcutaneous tissues of t he mid calf. Diffuse edema is present throughout the subcutaneous tissues of the left lower extremity. 2 centimeter left inguinal lymph nodes likely reactive. No bony destructive lesion noted. IMPRESSION: A 3.5 x 3.3 x 1.4 centimeter fluid collection is present within the medial subcutaneous tissues at the level above the left knee. A 4.5 by 8.5 x 1.7 centimeter fluid collection is present within the medial subcutaneous tissues of t he mid calf. These are compatible with abscesses
[2020-06-26] MEDS ORDERED: hydrOXYzine HCL 25 MG TAB PO PRN (16:20)
[2020-06-26] MEDS ORDERED: Magnesium Sulfate 2gm IVPB 2 G/50 ML BAG IV ONE (16:42)
[2020-06-26] MEDS ORDERED: ALBUTEROL INHALER 60 PUFF/8 GM IH PRN (17:23)
[2020-06-26] MEDS: ENOXAPARIN 40 MG/0.4 ML SQ SCH (18:23)
[2020-06-26] MEDS: FUROSEMIDE 40 MG TABLET PO SCH (18:36)
[2020-06-26] MEDS: METOPROLOL TAR 25 MG TAB PO SCH (18:37)
--- NOTE | 2020-06-26 20:38 | CON ---
Reason For Consultation: Admitted on 06/25/[address] Smith for left lower extremity cellulitis. I am seeing the patient for possible ventricular tachycardia. History Of Present Illness: Ms. Betancourt is a 344 pounds black female with a history of chronic sys tolic congestive heart failure. Her ejection fraction was 26% in October of 2019. She has a history of paroxysmal atrial fibrillation, COPD, dyslipidemia, and hypertension. She came in with a left lower extremity cellulitis. Has been in sinus tachycardia since she has been here and had a short episode of ventricular tachycardia. Her magnesium was low and was supplemented. She denied any symptoms wit h her ventricular tachycardia. She denied any chest pain, shortness of breath, PND, orthopnea, palpi tation, or syncope. Denied any fever or chills or cough. Past Medical History: As stated above. Allergies: NONE. Review of Systems: Negative. Social History: Negative. Family History: Noncontributory. Medications: At home include Eliquis, inhalers, Lipitor, Lasix, losartan, and metoprolol. Physical Examination: General: She is morbidly obese but no acute distress. Pleasant. Heart: Rate is sinus 124. HEENT: Negative. Neck: Supple with no bruit. Chest: Clear. Cardiac: Revealed tachycardia with an S3, S4 gallops. Abdomen: Obese, benign. Extremities: Revealed severe edema bilaterally with left lower extremity cellulitis. Diagnostic Data: Creatinine was 0.88, is [place] 1[place] [id number]. EKG shows sinus tachyc ardia. Magnesium was 1.7. Impression And Plan: Short run of ventricular tachycardia secondary to congestive heart failure and cellulitis with demand ischemia and low magnesium. Her magnesium needs to be supplemented. She need s to definitely to be put back on her beta-sowmya as soon as possible. She should also be back on h er losartan for her pleuritic congestive heart failure. She has an ejection fraction of 26%. I am n ot so sure who follows up with Ms. Betancourt, but she follows in a primary care clinic in [facility] I would be happy to see her in the office for her CHF because I really think she needs to have a c atheterization. She needs to try Entresto if she can afford it. She needs to be on carvedilol, and she needs to really have a heart catheterization for possible defibrillator and biventricular pacemak er down the road. Her other problems include cellulitis, on antibiotics, low magnesium supplemented, mild renal insufficiency, elevated white count, paroxysmal atrial fibrillation, on Eliquis, chronic obstructive pulmonary disease on inhalers, dyslipidemia, on Lipitor. I will discuss the case further with Dr. Smith. LIBBY/BAR Voice ID: [id number] Report ID: [id number]
[2020-06-27] MEDS: ACETAMINOPHEN 500 MG TAB PO PRN (00:17)
[2020-06-27 04:02] VITALS: O2SAT 95
[2020-06-27 05:57] LABS: Absolute Lymphocytes (CBC) 1.4 K/uL (0.7-4.9); Basophils % 0.4 % (0-1.3); Hematocrit 37.4 % (36.0-45.0); Lymphocytes % 8.8 % (15.3-44.8); MPV 9.8 fL (7.6-11.3); RBC Red Blood Cell Count 5.17 M/uL (3.86-4.86)
[2020-06-27 05:59] LABS: Potassium 3.7 mmol/L (3.5-5.1)
[2020-06-27] MEDS: METOPROLOL TAR 25 MG TAB PO SCH (06:13)
[2020-06-27] MEDS ORDERED: ATORVASTATIN 40 MG TAB PO SCH (09:00)
[2020-06-27] MEDS: CEFEPIME/SWI 1gm 10 ML IVP SCH (09:00)
[2020-06-27] MEDS: VANCOMYCIN 2 GM in NA CHLORIDE 0.9% 500 ML IVPB SCH (09:00)
[2020-06-27] MEDS: ENOXAPARIN 40 MG/0.4 ML SQ SCH (09:00)
[2020-06-27] MEDS ORDERED: POTASSIUM CL SA 10 MEQ TAB PO ONE (09:00)
[2020-06-27] MEDS ORDERED: FUROSEMIDE 40 MG TABLET PO SCH (09:00)
[2020-06-27] MEDS: FUROSEMIDE 40 MG TABLET PO SCH (09:00)
[2020-06-27 09:36] VITALS: BP 136/78; TEMP 97.7
--- NOTE | 2020-06-27 14:21 | P.DS ---
Admission Date: 06/25/20 Discharge Date: 06/27/20 Disposition: AMA-LEFT AGAINST MEDICAL ADVIC Reason for Admission: LLE cellulitis & Abscess, failed outpatient therapy Consultations: General surgery-Dr. He Cardiology-Dr. Marcus - Problems (1) SIRS (systemic inflammatory response syndrome) Status: Acute (2) Cellulitis and abscess of left leg Status: Acute (3) Chronic systolic heart failure Status: Acute (4) Atrial fibrillation Status: Acute Qualifiers: Atrial fibrillation type: unspecified Qualified Code(s): I48.91 - Unspecified atrial fibrillation (5) Hypertension Status: Acute (6) Non-sustained ventricular tachycardia Status: Acute Brief History of Present Illness: 55-year-old woman presented to the emergency department with a complaint of redness, pain and swelling of the left lower extremity. Symptoms or cared after she developed what she called a skin infection on the left knee. Per report she was prescribed clindamycin by she stopped taking it because she was not tolerating it due to diarrhea and heartburn. Her left lower extremity became progressively swollen, red and tender and developed blisters. Patient had severe leukocytosis and elevated lactic acid. Blood cultures were taken, patient started on antibiotics and admitted for further management. Hospital Course: Patient admitted to the medical floor and treated with aggressive antibiotic therapy which included IV cefepime and vancomycin. She was evaluated by general surgery Dr. He who recommended I and D in the OR. Patient refused surgery and demanded Dr. He not to be involved in her care here. Her Eliquis was held in anticipation for surgery. Her blood pressure readings were varied with occasional soft blood pressure. Her metoprolol was held given borderline low blood pressure and the presence of sepsis. She actually took a dose of her own metoprolol on her own accord and she developed hypotension and bradycardia. Her blood pressure later responded to the bolus of normal saline. CT scan of the left lower extremities reviewed reporting 2 fluid collections-1 on the medial aspect of the left knee and the other at the mid calf. I had a lengthy discussion with the patient 18 regarding the need for surgery. Patient was adamant and declined surgery. She stated she does not like Dr. He and refused Dr. He's care. Patient was seen by Dr. Marcus. I had a discussion with Dr. Marcus who concurred patient is high risk for surgery but if surgery is needed because of sepsis, then it should be done. I discussed with her different options for anesthesia for surgery conscious sedation to local anesthesia after she mentioned her concern for general anesthesia. She continued to decline any form of surgery or anesthesia. She stated she would like to seek opinion from her Primary care provider but cannot reach her. She later voiced the option of going to another hospital for care. I offered to initiate a transfer to a tertiary hospital but she declined stating she needs time to think about it. I also mentioned to her that only antibiotics may not help if she has abscesses that need to be drained and that the abscesses drainage need to be timely. I recommended immediate drainage as recommended by Dr. He to prevent necrotizing fascitis and worsening infection. His metoprolol is resumed at 12.5 mg bid instead to 25 mg daily given that she developed bradycardia and hypotension after she took her own metoprolol yesterday. Patient took a dose of her Eliquis on her own accord last night precluding the possibility of surgery today. She later decided to sign out against medical advice and seek another opinion from her PCP office or go to another hospital for care. I discussed with her the risk of signing out against medical advice, risks including worsening sepsis, development of necrotizing fascitis, risk of loosing her leg and even . I impressed upon her to go to another ER of the hospital of her choice immediately if she is adamant on leaving against medical advise. Patient went ahead and signed the AMA form. I offered oral antibiotics - levaquin based on the wound culture Strept agalactiae growth and sensitivity and doxycycline for staph coverage in case she delays going to the ER. I informed her the risks and benefit of the antibiotics and that she should not take her hydroxyzine if she has take the antibiotics due to interaction with levaquin with QT prolongation and risk for sustained ventricular tachycardia. Patient voiced understanding and left against medical advise. Vital Signs/Physical Exam: Temp Pulse Resp BP Pulse Ox 97.7 F 124 H 18 136/78 94 06/27/20 08:00 06/27/20 08:00 06/27/20 08:00 06/27/20 08:00 06/27/20 08:00 Laboratory Data at Discharge: WBC 15.4 K/uL (4.3-10.9) H D 06/27/20 05:20 Hgb 10.7 g/dL (12.0-15.0) L 06/27/20 05:20 Hct 37.4 % (36.0-45.0) 06/27/20 05:20 Plt Count 237 K/uL (152-406) 06/27/20 05:20 PT 22.6 SECONDS (9.5-12.5) H 06/25/20 05:22 INR 1.94 06/25/20 05:22 Sodium 136 mmol/L (136-145) 06/27/20 05:20 Potassium 3.7 mmol/L (3.5-5.1) 06/27/20 05:20 BUN 23 mg/dL (7-18) H 06/27/20 05:20 Creatinine 1.57 mg/dL (0.55-1.3) H 06/27/20 05:20 Glucose 112 mg/dL (74-106) H 06/27/20 05:20 Phosphorus 3.0 mg/dL (2.5-4.9) 06/26/20 05:29 Magnesium 2.4 mg/dL (1.8-2.4) 06/27/20 05:20 Total Bilirubin 1.6 mg/dL (0.2-1.0) H 06/25/20 05:22 AST 34 U/L (15-37) 06/25/20 05:22 ALT 45 U/L (12-78) 06/25/20 05:22 Alkaline Phosphatase 112 U/L (45-117) 06/25/20 05:22 Home Medications: Albuterol Sulfate [Proair Hfa] 1 puff IH Q6HP PRN 10/28/19 Atorvastatin Calcium 40 mg PO DAILY 10/28/19 Furosemide 40 mg PO DAILY 10/28/19 Losartan Potassium 25 mg PO DAILY 10/28/19 Metoprolol Tartrate 25 mg PO DAILY 10/28/19 hydrOXYzine HCL [Atarax*] 25 mg PO DAILYPRN PRN 10/28/19 Apixaban [Eliquis] 5 mg PO DAILY 06/25/20 Doxycycline Hyclate 100 mg PO BID #14 capsule 06/27/20 levoFLOXacin [Levaquin] 750 mg PO DAILY #7 tab 06/27/20 New Medications: Doxycycline Hyclate 100 mg PO BID #14 capsule levoFLOXacin [Levaquin] 750 mg PO DAILY #7 tab Followup: Unknown,U [Primary Care Provider] -
--- NOTE | 2020-06-27 14:44 | P.PN ---
Date of Service: 06/26/20 CT scan of the left lower extremities reviewed reporting 2 fluid collections-1 on the medial aspect of the left knee and the other at the mid calf. I had a lengthy discussion with the patient 18 regarding the need for surgery. Patient was adamant and declined surgery. She stated she does not like Dr. He and refused Dr. He's care. Patient was seen by Dr. Marcus. I had a discussion with Dr. Marcus who concurred patient is high risk for surgery but if surgery is needed because of sepsis, then it should be done. I discussed with her different options for anesthesia for surgery conscious sedation to local anesthesia after she mentioned her concern for general anesthesia. She continued to decline any form of surgery or anesthesia. She stated she would like to seek opinion from her Primary care provider but cannot reach her. She later voiced the option of going to another hospital for care. I offered to initiate a trans gumaro to a tertiary hospital but she declined stating she needs time to think about it. His metoprolol is resumed at 12.5 mg bid instead to 25 mg daily given that she developed bradycardia and hypotension after she took her own metoprolol yesterday. She will be started on [place] Lovenox as we wait for her to decide on surgery.
== END 2020-06-27 11:49 | disposition left against medical advice (07) | DRG 872 ==
LOC: ER 21:50 → 2ND 06-25 01:03
PROVIDERS: ADMIT Hospitalist; ATTEND Internal Medicine
DX: A41.9 Sepsis, unspecified organism (principal); L03.116 Cellulitis of left lower limb; I50.22 Chronic systolic (congestive) heart failure; Z68.41 Body mass index [BMI] 40.0-44.9, adult; I47.2 Ventricular tachycardia; I24.8 Other forms of acute ischemic heart disease; L02.416 Cutaneous abscess of left lower limb; E66.01 Morbid (severe) obesity due to excess calories; I11.0 Hypertensive heart disease with heart failure; D72.829 Elevated white blood cell count, unspecified; E78.5 Hyperlipidemia, unspecified; D50.9 Iron deficiency anemia, unspecified; F41.9 Anxiety disorder, unspecified; J44.9 Chronic obstructive pulmonary disease, unspecified; I48.0 Paroxysmal atrial fibrillation; Z79.01 Long term (current) use of anticoagulants; Z79.899 Other long term (current) drug therapy; Z53.21 Procedure and treatment not carried out due to patient leaving prior to being seen by health care provider; Z87.891 Personal history of nicotine dependence; Z53.29 Procedure and treatment not carried out because of patient's decision for other reasons; Z86.73 Personal history of transient ischemic attack (TIA), and cerebral infarction without residual deficits; Z20.822 Contact with and (suspected) exposure to COVID-19
CPT/HCPCS: 36415; 71045; 73701; 80048; 80053; 80202; 82607; 82728; 83036; 83540; 83605; 83735; 84100; 84132; 84145; 84466; 85025; 85610; 87040; 87070; 87077; 87186; 87205; 93005; 94760; 96374; 99285; J0692; J1650; J3370; J3475; J3480; J7030; J7040; J7050; Q9967; U0003

== ENCOUNTER 2020-08-21 11:29 | Inpatient (IN) | payer SELFPAY ==
--- OUTSIDE RECORDS SUMMARY | 2020-08-21 11:32 | XMS REPORT | Continuity of Care Document ---
:1965 Author Organization [facility] t Address [address] [place] [address] Care Team Providers Name Role Phone Alfredo Auguste Attending Clinician Problems This patient has no known problems. Allergies, Adverse Reactions, Alerts This patient has no known allergies or adverse reactions. Medications This patient has no known medications. Procedures This patient has no known procedures. Encounters Start End Encounter Admission Attending Care Care Encounter Source Date/Time Date/Time Type Type Clinicians Facility Department ID 2020-06-28 2020-06-28 Emergency [facility] [id number] 17:40:00 20:09:00 Marquita Higgins [id number] [place] [id number] [place] [id number] Results This patient has no known results.
[2020-08-21 12:33] LABS: Absolute Lymphocytes (CBC) 1.5 K/uL (0.7-4.9); Basophils % 1.2 % (0-1.3); Hematocrit 28.4 % (36.0-45.0); Lymphocytes % 22.8 % (15.3-44.8); MPV 8.5 fL (7.6-11.3)
[2020-08-21 12:36] LABS: Protime INR 2.44
[2020-08-21] MEDS ORDERED: DIGOXIN 0.25 MG/ML AMP ONE (12:45)
[2020-08-21] MEDS ORDERED: TETANUS & DIPHTHERIA TOX,ADULT 0.5 ML VIAL ONE (12:46)
[2020-08-21] MEDS ORDERED: PIPER/TAZO/NS 3.375gm 3.375 GM/100 ML BAG ONE ×2 (12:46→21:49)
[2020-08-21] MEDS ORDERED: NA CHLORIDE 0.9% 1,000 ML ONE (12:47)
[2020-08-21 12:53] LABS: Albumin 2.6 g/dL (3.4-5.0); Bilirubin Direct 0.4 mg/dL (0-0.2); Bilirubin Total 0.9 mg/dL (0.2-1.0); Magnesium 2.2 mg/dL (1.8-2.4); Potassium 4.9 mmol/L (3.5-5.1); Protein, Total 7.6 g/dL (6.4-8.2); Troponin (Emerg Dept Use Only) 0.14 ng/mL (0.0-0.045)
[2020-08-21] MEDS ORDERED: VANCOMYCIN/NS 1 gm 1 GM/250 ML BAG IVPB ONE ×2 (13:00→20:00)
--- NOTE | 2020-08-21 13:11 | RAD REPORT ---
EXAM DESCRIPTION: RAD - Chest Single View - 08/21/2020 12:33 pm CLINICAL HISTORY: COUGH Chest pain. COMPARISON: Chest Single View dated 06/25/2020; Chest Single View dated 10/28/2019; CHEST SINGLE VIEW da bruce 09/13/2015; CHEST PA AND LAT 2 VIEW dated 03/10/2013 FINDINGS: Portable technique limits examination quality. The lungs are grossly clear. Prominent cardiomegaly. No displaced fractures. IMPRESSION: Cardiomegaly.
[2020-08-21 14:14] LABS: Blood Morphology Comment NOTED (NOT SEEN); Platelet Estimate ADEQ
[2020-08-21 14:15] LABS: Anisocytosis 1+; Hypochromasia 1+; Polychromasia SLIGHT; Target Cells 1+
--- NOTE | 2020-08-21 14:21 | ER ---
Nurse's Notes [facility] Name: Lolis Betancourt Age: 55 yrs Sex: Female : 1965 Arrival Date: 08/21/2020 Time: 11:34 Bed 14 Private MD: Paula Mac Diagnosis: Anemia, unspecified;Acute kidney failure;Unspecified combined systolic (congestive) and diastolic (congestive) heart failure;Cellulitis and acute lymphangitis of other parts of limb-right leg;Obesity, unspecified;Cardiomegaly;Hypotension;Atrial fibrillation and flutter-with RVR Presentation: 08/21 11:57 Chief complaint: Patient states: weeping, swelling and painful wounds to R lower leg ss that began 4 days ago. Pt reports since May, she has been battling cellulitis to bilateral lower extremities. Coronavirus screen: Client denies travel out of the [place] in the last 14 days. Ebola Screen: Patient denies exposure to infectious person. Patient denies travel to an Ebola-affected area in the 21 days before illness onset. Initial Sepsis Screen: Does the patient meet any 2 criteria? RR > 20 per min. HR > 90 bpm. Yes Does the patient have a suspected source of infection? No. Patient's initial sepsis screen is negative. Risk Assessment: Do you want to hurt yourself or someone else? Patient reports no desire to harm self or others. Onset of symptoms was August 17, 2020. 11:57 Method Of Arrival: Wheelchair ss 11:57 Acuity: LYRIC 2 ss Historical: - Allergies: 12:07 No Known Allergies; ss - Home Meds: 12:07 atorvastatin 40 mg Oral tab once daily [Active]; clopidogrel 75 mg Oral tab 1 tab once ss daily [Active]; hydroxyzine HCl 25 mg Oral tab 1 tab every 6 hours [Active]; Lasix 40 mg Oral tab 1 tab once daily [Active]; losartan 25 mg Oral tab once daily [Active]; metoprolol tartrate 25 mg Oral tab 1 tab 2 times per day [Active]; - PMHx: 12:07 Anxiety; CHF; CVA; Hyperlipidemia; Hypertension; Cellulitis; ss - Immunization history:: Adult Immunizations up to date. - Social history:: Smoking status: Patient denies any tobacco usage or history of. - Family history:: not pertinent. Screenin:24 Abuse screen: Denies threats or abuse. Nutritional screening: No deficits noted. vg1 Tuberculosis screening: No symptoms or risk factors identified. Fall Risk No fall in past 12 months (0 pts). No secondary diagnosis (0 pts). IV access (20 points). Ambulatory Aid- None/Bed Rest/Nurse Assist (0 pts). Gait- Normal/Bed Rest/Wheelchair (0 pts) Mental Status- Oriented to own ability (0 pts). Total [place] Fall Scale indicates No Risk (0-24 pts). Assessment: 12:40 General: Appears in no apparent distress. uncomfortable, Behavior is calm, cooperative. vg1 Pain: Complains of pain in LAURA lower extremities Pain currently is 5 out of 10 on a pain scale. Neuro: Level of Consciousness is awake, alert, obeys commands, Oriented to person, place, time, situation. Cardiovascular: Patient's skin is warm and dry. Respiratory: Airway is patent Respiratory effort is even, unlabored, Respiratory pattern is regular, symmetrical. GI: No signs and/or symptoms were reported involving the gastrointestinal system. GI: No signs and/or symptoms were reported involving the gastrointestinal system. Patient currently denies diarrhea, nausea, vomiting. : No signs and/or symptoms were reported regarding the genitourinary system. EENT: No signs and/or symptoms were reported regarding the EENT system. Derm: Skin is thin, has blisters on LAURA lower extremities has skin tears on LAURA lower extremities Wound noted LAURA lower extremities. Musculoskeletal: Swelling present in LAURA lower extremities. 15:33 Reassessment: Patient appears in no apparent distress at this time. Patient and/or vg1 family updated on plan of care and expected duration. Pain level reassessed. Patient is alert, oriented x 3, equal unlabored respirations, skin warm/dry/pink. 21:09 Reassessment: attempted to call report. vg1 Vital Signs: 11:57 BP 80 / 60; Pulse 114; Resp 22; Temp 97.5(O); Pulse Ox 100% on R/A; Height 5 ft. 9 in. ss (175.26 cm); Pain 8/10; 12:00 BP 76 / 62; Pulse 104; Resp 20; Pulse Ox 100% on R/A; vg1 12:40 BP 85 / 48; Pulse 105; Resp 22; Pulse Ox 100% on R/A; vg1 13:23 BP 86 / 67; Pulse 110; Resp 20; Pulse Ox 100% ; vg1 14:00 BP 91 / 63; Pulse 103; Resp 20; Pulse Ox 100% on R/A; vg1 14:45 BP 84 / 60; Pulse 108; Resp 22; Pulse Ox 98% on R/A; vg1 16:00 BP 85 / 48; Pulse 100; Resp 22; Pulse Ox 97% on R/A; vg1 ED Course: 11:34 Patient arrived in ED. mr 11:34 Paula Mac is Private Physician. mr 11:38 Rosalia Payton, RN is Primary Nurse. ph 11:47 Alejandro Srivastava MD is Attending Physician. christo 12:06 Triage completed. ss 12:07 Arm band placed on right wrist. ss 12:13 Primary Nurse role handed off by Rosalia Payton RN vg1 12:13 Vi Rebolledo RN is Primary Nurse. vg1 12:20 Initial lab(s) drawn, by nm, sent to lab. First set of blood cultures drawn. Inserted kj1 saline lock: 22 gauge in right antecubital area, using aseptic technique. Blood collected. 12:33 XRAY Chest (1 view) In Process Unspecified. EDMS 12:45 Second set of blood cultures drawn by ED staff. vg1 13:24 Patient has correct armband on for positive identification. Bed in low position. Call vg1 light in reach. Side rails up X2. 14:18 Fabrizio Smith is Hospitalizing Provider. christo 15:10 IV was discontinued by the patient. Patient accidently pulled on 22 g in Right AC. vg1 15:11 Inserted saline lock: 22 gauge in left antecubital area, using aseptic technique. vg1 15:32 Inserted saline lock: 22 gauge in left wrist, using aseptic technique. ,using aseptic vg1 technique. completed by MARC Hart. 21:10 No provider procedures requiring assistance completed. Patient admitted, IV remains in vg1 place. 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 Exp: vg1 10/09/2021. Lot #: [id number]. } Route: IM; Site: right deltoid; 15:35 Follow up: Response: No adverse reaction vg1 13:02 Drug: Digoxin 0.5 mg Route: IVP; Site: right antecubital; vg1 16:05 Follow up: Response: No adverse reaction vg1 13:03 Drug: NS 0.9% 500 ml Route: IV; Rate: bolus; Site: right antecubital; vg1 13:30 Follow up: IV Status: Completed infusion vg1 13:03 Drug: Zosyn 3.375 grams Route: IVPB; Infused Over: 60 mins; Site: right antecubital; vg1 16:01 Follow up: IV Status: Completed infusion vg1 13:30 Drug: NS 0.9% 1000 ml Route: IV; Rate: 125 ml/hr; Site: left antecubital; vg1 19:19 Follow up: IV Status: Completed infusion vg1 14:00 Drug: vancoMYCIN 1 grams Route: IVPB; Infused Over: 2 hrs; Site: left antecubital; vg1 16:00 Follow up: Response: No adverse reaction; IV Status: Completed infusion vg1 15:34 Drug: Pepcid 20 mg Route: IVP; Site: left antecubital; vg1 16:05 Follow up: Response: No adverse reaction vg1 15:35 Drug: Solu-CORTEF 100 mg Route: IVP; Site: left antecubital; vg1 16:05 Follow up: Response: No adverse reaction vg1 Intake: 16:02 IV: 500ml (IV Fluid); Total: 500ml. jp3 Output: 16:02 Urine: 400ml (Voided); Total: 400ml. jp3 16:55 Urine: 200ml (Voided); Total: 600ml. vg1 17:58 Urine: 200ml (Voided); Total: 800ml. vg1 Outcome: 14:20 Decision to Hospitalize by Provider. christo 21:30 Admitted to Tele accompanied by tech, via stretcher, room 221, with chart, Report vg1 called to MARC Batres 21:30 Condition: stable 21:30 Instructed on the need for admit. 21:39 Patient left the ED. vg1 Signatures: Dispatcher [employer] EDAlejandro Lucero MD MD cha Rivera, Hailey Sterling RN RN ss Hall, Patricia, RN RN ph Pisarski, Jacob jp3 Gerry, Beth kj1 Amaury, Vi, RN RN vg1
--- NOTE | 2020-08-21 14:21 | EDPHYS ---
Physician Documentation [facility] Name: Lolis Betancourt Age: 55 yrs Sex: Female : 1965 Arrival Date: 08/21/2020 Time: 11:34 Bed 14 Private MD: Paula Mac ED Physician Alejandro Srivastava HPI: 08/21 12:11 This 55 yrs old Black Female presents to ER via Wheelchair with complaints of Leg christo Swelling. 12:11 The patient presents with cellulitis of the right leg, the patient presents with a christo swollen area of the right leg. Description: confluent, draining, erythematous, fluctuant, swollen. Onset: The symptoms/episode began/occurred 1 week(s) ago. Possible cause(s): unknown. Associated signs and symptoms: Pertinent positives: discharge, drainage, erythema, fever, nausea, swelling. The patient presents with decreased range of motion, an injury, pain, that is acute. The complaints affect the lateral aspect of right calf, right ankle, right calf, right Achilles, medial aspect of right calf, right reid and anterior aspect of right ankle. Context: The problem was sustained at an unknown site. Associated signs and symptoms: Pertinent positives: calf tenderness, swelling, warmth, weakness, of the right leg. Historical: - Allergies: 12:07 No Known Allergies; ss - Home Meds: 12:07 atorvastatin 40 mg Oral tab once daily [Active]; clopidogrel 75 mg Oral tab 1 tab once ss daily [Active]; hydroxyzine HCl 25 mg Oral tab 1 tab every 6 hours [Active]; Lasix 40 mg Oral tab 1 tab once daily [Active]; losartan 25 mg Oral tab once daily [Active]; metoprolol tartrate 25 mg Oral tab 1 tab 2 times per day [Active]; - PMHx: 12:07 Anxiety; CHF; CVA; Hyperlipidemia; Hypertension; Cellulitis; ss - Immunization history:: Adult Immunizations up to date. - Social history:: Smoking status: Patient denies any tobacco usage or history of. - Family history:: not pertinent. ROS: 12:11 Constitutional: Negative for fever, chills, and weight loss, Eyes: Negative for injury, christo pain, redness, and discharge, ENT: Negative for injury, pain, and discharge, Neck: Negative for injury, pain, and swelling, Cardiovascular: Negative for chest pain, palpitations, and edema, Respiratory: Negative for shortness of breath, cough, wheezing, and pleuritic chest pain, Abdomen/GI: Negative for abdominal pain, nausea, vomiting, diarrhea, and constipation, Back: Negative for injury and pain, : Negative for injury, bleeding, discharge, and swelling, Psych: Negative for depression, anxiety, suicide ideation, homicidal ideation, and hallucinations, Allergy/Immunology: Negative for hives, rash, and allergies, Endocrine: Negative for neck swelling, polydipsia, polyuria, polyphagia, and marked weight changes. 12:11 MS/extremity: Positive for decreased range of motion, deformity, erythema, pain, swelling, tenderness, of the right leg. Exam: 12:11 Constitutional: This is a well developed, well nourished patient who is awake, alert, christo and in no acute distress. Head/Face: Normocephalic, atraumatic. Eyes: Pupils equal round and reactive to light, extra-ocular motions intact. Lids and lashes normal. Conjunctiva and sclera are non-icteric and not injected. Cornea within normal limits. Periorbital areas with no swelling, redness, or edema. ENT: Nares patent. No nasal discharge, no septal abnormalities noted. Tympanic membranes are normal and external auditory canals are clear. Oropharynx with no redness, swelling, or masses, exudates, or evidence of obstruction, uvula midline. Mucous membranes moist. Neck: Trachea midline, no thyromegaly or masses palpated, and no cervical lymphadenopathy. Supple, full range of motion without nuchal rigidity, or vertebral point tenderness. No Meningismus. Chest/axilla: Normal chest wall appearance and motion. Nontender with no deformity. No lesions are appreciated. Respiratory: Lungs have equal breath sounds bilaterally, clear to auscultation and percussion. No rales, rhonchi or wheezes noted. No increased work of breathing, no retractions or nasal flaring. Abdomen/GI: Soft, non-tender, with normal bowel sounds. No distension or tympany. No guarding or rebound. No evidence of tenderness throughout. Back: No spinal tenderness. No costovertebral tenderness. Full range of motion. Skin: Warm, dry with normal turgor. Normal color with no rashes, no lesions, and no evidence of cellulitis. Neuro: Awake and alert, GCS 15, oriented to person, place, time, and situation. Cranial nerves II-XII grossly intact. Motor strength 5/5 in all extremities. Sensory grossly intact. Cerebellar exam normal. Normal gait. Psych: Awake, alert, with orientation to person, place and time. Behavior, mood, and affect are within normal limits. 12:11 Cardiovascular: Rate: tachycardic, Rhythm: irregularly irregular, Edema: 3+ edema to level of left midcalf and right midcalf, JVD: is not appreciated. Vital Signs: 11:57 BP 80 / 60; Pulse 114; Resp 22; Temp 97.5(O); Pulse Ox 100% on R/A; Height 5 ft. 9 in. ss (175.26 cm); Pain 8/10; 12:00 BP 76 / 62; Pulse 104; Resp 20; Pulse Ox 100% on R/A; vg1 12:40 BP 85 / 48; Pulse 105; Resp 22; Pulse Ox 100% on R/A; vg1 13:23 BP 86 / 67; Pulse 110; Resp 20; Pulse Ox 100% ; vg1 14:00 BP 91 / 63; Pulse 103; Resp 20; Pulse Ox 100% on R/A; vg1 14:45 BP 84 / 60; Pulse 108; Resp 22; Pulse Ox 98% on R/A; vg1 16:00 BP 85 / 48; Pulse 100; Resp 22; Pulse Ox 97% on R/A; vg1 MDM: 11:47 Patient medically screened. [facility] 12:17 Differential diagnosis: abscess, cellulitis. Differential Diagnosis sepsis. Data christo reviewed: vital signs, nurses notes, EMS record, lab test result(s), EKG, radiologic studies. Data interpreted: telemetry monitor: rate is 114 beats/min, rhythm is regular, Pulse oximetry: on room air is 100 %. Test interpretation: by ED physician or midlevel provider: ECG, plain radiologic studies. Counseling: I had a detailed discussion with the patient and/or guardian regarding: the historical points, exam findings, and any diagnostic results supporting the discharge/admit diagnosis, the presence of at least one elevated blood pressure reading (>120/80) during this emergency department visit, lab results, radiology results, the need for further work-up and treatment in the hospital. 08/21 12:08 Order name: Basic Metabolic Panel [facility] 08/21 12:08 Order name: CBC with Diff [facility] 08/21 12:08 Order name: LFT's [facility] 08/21 12:08 Order name: Magnesium [facility] 08/21 12:08 Order name: NT PRO-BNP [facility] 08/21 12:08 Order name: PT-INR [facility] 08/21 12:08 Order name: Troponin (emerg Dept Use Only) [facility] 08/21 12:08 Order name: Urine Culture [facility] 08/21 12:08 Order name: Lactate; Complete Time: 12:59 [facility] 08/21 12:08 Order name: Blood Culture Adult (2) [facility] 08/21 12:08 Order name: Lipase; Complete Time: 12:59 [facility] 08/21 12:09 Order name: Basic Metabolic Panel; Complete Time: 12:59 [facility] 08/21 12:09 Order name: CBC with Automated Diff; Complete Time: 14:15 [facility] 08/21 12:08 Order name: XRAY Chest (1 view); Complete Time: 14:12 [facility] 08/21 12:09 Order name: Liver (Hepatic) Function; Complete Time: 12:59 [facility] 08/21 12:09 Order name: Magnesium; Complete Time: 12:59 [facility] 08/21 12:09 Order name: NT PRO-BNP; Complete Time: 12:59 [facility] 08/21 12:09 Order name: Protime (+INR); Complete Time: 12:58 [facility] 08/21 12:09 Order name: Troponin (Emerg Dept Use Only); Complete Time: 12:59 [facility] 08/21 12:15 Order name: TSH; Complete Time: 14:12 [facility] 08/21 12:59 Order name: Type And Screen [facility] 08/21 13:35 Order name: Manual Differential; Complete Time: 14:15 [facility] 08/21 13:38 Order name: SARS-COV-2 RT PCR; Complete Time: 14:12 [facility] 08/21 14:28 Order name: Bb Add On 08/21 14:34 Order name: ABO/RH no charge [facility] 08/21 14:35 Order name: Packed RBC Leukored [facility] 08/21 20:22 Order name: Procalcitonin [facility] 08/21 12:08 Order name: EKG; Complete Time: 12:09 [facility] 08/21 12:08 Order name: Cardiac monitoring; Complete Time: 13:13 [facility] 08/21 12:08 Order name: EKG - Nurse/Tech; Complete Time: 13:13 [facility] 08/21 12:08 Order name: IV Saline Lock; Complete Time: 13:13 [facility] 08/21 12:08 Order name: Labs collected and sent; Complete Time: 13:13 [facility] 08/21 12:08 Order name: O2 Per Protocol; Complete Time: 12:11 [facility] 08/21 12:08 Order name: O2 Sat Monitoring; Complete Time: 12:11 [facility] 08/21 12:08 Order name: Urine Dipstick-Ancillary (obtain specimen); Complete Time: 16:06 [facility] 08/21 12:08 Order name: Wound Care; Complete Time: 13:13 [facility] 08/21 12:15 Order name: IV Saline Lock - Large Bore; Complete Time: 13:14 [facility] 08/21 14:20 Order name: Transfuse; Complete Time: 19:18 [facility] 08/21 16:02 Order name: CONS Physician Consult EDMS Administered Medications: 13:02 Drug: Tetanus-Diphtheria Toxoid Adult 0.5 ml {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 Exp: vg1 10/09/2021. Lot #: [id number]. } Route: IM; Site: right deltoid; 15:35 Follow up: Response: No adverse reaction vg1 13:02 Drug: Digoxin 0.5 mg Route: IVP; Site: right antecubital; vg1 16:05 Follow up: Response: No adverse reaction vg1 13:03 Drug: NS 0.9% 500 ml Route: IV; Rate: bolus; Site: right antecubital; vg1 13:30 Follow up: IV Status: Completed infusion vg1 13:03 Drug: Zosyn 3.375 grams Route: IVPB; Infused Over: 60 mins; Site: right antecubital; vg1 16:01 Follow up: IV Status: Completed infusion vg1 13:30 Drug: NS 0.9% 1000 ml Route: IV; Rate: 125 ml/hr; Site: left antecubital; vg1 19:19 Follow up: IV Status: Completed infusion vg1 14:00 Drug: vancoMYCIN 1 grams Route: IVPB; Infused Over: 2 hrs; Site: left antecubital; vg1 16:00 Follow up: Response: No adverse reaction; IV Status: Completed infusion vg1 15:34 Drug: Pepcid 20 mg Route: IVP; Site: left antecubital; vg1 16:05 Follow up: Response: No adverse reaction vg1 15:35 Drug: Solu-CORTEF 100 mg Route: IVP; Site: left antecubital; vg1 16:05 Follow up: Response: No adverse reaction vg1 Disposition: 08/21/20 14:20 Hospitalization ordered by Fabrizio Smith for Inpatient Admission. Preliminary diagnosis are Anemia, unspecified, Acute kidney failure, Unspecified combined systolic (congestive) and diastolic (congestive) heart failure, Cellulitis and acute lymphangitis of other parts of limb - right leg, Obesity, unspecified, Cardiomegaly, Hypotension, Atrial fibrillation and flutter - with RVR. - Bed requested for Telemetry/MedSurg (Inpatient). - Status is Inpatient Admission. vg1 - Condition is Fair. - Problem is new. - Symptoms have improved. Signatures: Dispatcher [employer] EDGA Aure Gaitan RN RN mw Woody, Diana, RN RN dw Anderson, Corey, MD MD cha Smirch, Shelby, RN RN ss Garcia, Victoria, RN RN vg1 Corrections: (The following items were deleted from the chart) 12:57 12:09 CORONAVIRUS+MR.LAB.BRZ ordered. [facility] 14:26 14:20 Hospitalization Ordered by Fabrizio Smith for Inpatient Admission. Preliminary christo diagnosis is Anemia, unspecified; Acute kidney failure; Unspecified combined systolic (congestive) and diastolic (congestive) heart failure; Cellulitis and acute lymphangitis of other parts of limb - right leg; Obesity, unspecified; Cardiomegaly; Hypotension. Bed requested for Intensive Care Unit. Status is Inpatient Admission. Condition is Fair. Problem is new. Symptoms have improved. christo 16:48 14:26 08/21/2020 14:20 Hospitalization Ordered by Fabrizio Smith for Inpatient ss Admission. Preliminary diagnosis is Anemia, unspecified; Acute kidney failure; Unspecified combined systolic (congestive) and diastolic (congestive) heart failure; Cellulitis and acute lymphangitis of other parts of limb - right leg; Obesity, unspecified; Cardiomegaly; Hypotension; Atrial fibrillation and flutter - with RVR. Bed requested for Intensive Care Unit. Status is Inpatient Admission. Condition is Fair. Problem is new. Symptoms have improved. christo 19:11 16:48 08/21/2020 14:20 Hospitalization Ordered by Fabrizio Smith for Inpatient dw Admission. Preliminary diagnosis is Anemia, unspecified; Acute kidney failure; Unspecified combined systolic (congestive) and diastolic (congestive) heart failure; Cellulitis and acute lymphangitis of other parts of limb - right leg; Obesity, unspecified; Cardiomegaly; Hypotension; Atrial fibrillation and flutter - with RVR. Bed requested for [facility] ER HOLD. Status is Inpatient Admission. Condition is Fair. Problem is new. Symptoms have improved. ss 21:04 19:11 08/21/2020 14:20 Hospitalization Ordered by Fabrizio Smith for Inpatient mw Admission. Preliminary diagnosis is Anemia, unspecified; Acute kidney failure; Unspecified combined systolic (congestive) and diastolic (congestive) heart failure; Cellulitis and acute lymphangitis of other parts of limb - right leg; Obesity, unspecified; Cardiomegaly; Hypotension; Atrial fibrillation and flutter - with RVR. Bed requested for Intensive Care Unit. Status is Inpatient Admission. Condition is Fair. Problem is new. Symptoms have improved. dw 21:39 21:04 08/21/2020 14:20 Hospitalization Ordered by Fabrizio Smith for Inpatient vg1 Admission. Preliminary diagnosis is Anemia, unspecified; Acute kidney failure; Unspecified combined systolic (congestive) and diastolic (congestive) heart failure; Cellulitis and acute lymphangitis of other parts of limb - right leg; Obesity, unspecified; Cardiomegaly; Hypotension; Atrial fibrillation and flutter - with RVR. Bed requested for Telemetry/MedSurg (Inpatient). Status is Inpatient Admission. Condition is Fair. Problem is new. Symptoms have improved. mw
[2020-08-21] MEDS ORDERED: FAMOTIDINE 20 MG/2 ML VIAL IV ONE (14:27)
[2020-08-21] MEDS ORDERED: HYDROCORTISONE SUC 100 MG INJ ONE (14:59)
[2020-08-21] MEDS ORDERED: WATER FOR INJ,STERILE 10 ML ONE (15:02)
--- NOTE | 2020-08-21 16:23 | P.HP ---
Certification for Inpatient Patient admitted to: Inpatient With expected LOS: >2 Midnights Practitioner: I am a practitioner with admitting privileges, knowledge of patient current condition, hospital course, and medical plan of care. Services: Services provided to patient in accordance with Admission requirements found in Title 42 Section 412.3 of the Code of Federal Regulations Patient History Date of Service: 08/21/20 Reason for admission: Right lower extremity redness and blisters History of Present Illness: 55-year-old woman with a history of chronic systolic heart failure, chronic atrial fibrillation on Eliquis anticoagulation, history of bilateral lower extremity lymphedema and venous stasis dermatitis who has been following with Dr. Javier as outpatient for wound care presented to the emergency department with a complaint of redness, swelling and blister formation on the right leg. She was hospitalized 3 months ago for similar presentation. Patient signed out against medical advice in order to utilize an another hospital because she was not happy with her care here. Patient noted to have hypotension with systolic blood pressure in the 80s in the ED. Patient is so losartan, metoprolol and Lasix. She has no leukocytosis. Her hemoglobin is down to 8.4 from 10 1 month ago. Patient noted to have erythema and blisters in the right lower extremity. The left lower extremity has black discoloration. Patient given antibiotics, IV fluids for hypotension. She is admitted for further management. Allergies No Known Drug Allergies Allergy (Verified 09/13/15 23:09) Unknown Home Medications: Atorvastatin Calcium 40 mg PO DAILY 10/28/19 Furosemide 40 mg PO DAILY 10/28/19 Losartan Potassium 25 mg PO DAILY 10/28/19 Metoprolol Tartrate 25 mg PO DAILY 10/28/19 Apixaban [Eliquis] 5 mg PO DAILY 06/25/20 - Past Medical/Surgical History Diabetic: No -: HTN -: Hyperlipidemia -: Morbid obesity -: Depression -: Chronic atrial fibrillation -: Asthma -: Chronic systolic heart failure -: CVA -: Chronic anticoagulation. - Family History Mother -: Kidney disease Father -: Hypertension, Liver disease, Kidney disease - Social History Alcohol use: No CD- Drugs: No Caffeine use: Yes Review of Systems Other: Patient denies any diarrhea or nausea or vomiting. Except as documented, all other systems reviewed and negative. Physical Examination - Physical Exam General: Alert, In no apparent distress, Oriented x3, Obese HEENT: Atraumatic, PERRLA, Mucous membr. moist/pink, EOMI, Sclerae nonicteric Neck: Supple, JVD not distended Respiratory: Clear to auscultation bilaterally, Normal air movement Cardiovascular: Normal S1 S2, Edema (Bilateral lower extremities up to bilateral thigh, more pronounced in the posterior aspect of thighs.), Irregular heart rate/rhythm Gastrointestinal: Normal bowel sounds, Soft and benign, Non-distended, No tenderness Musculoskeletal: Swelling (Bilateral legs, worse on the right) Integumentary: Erythema (Right lower extremity.), Other (Right lower extremity with multiple shallow ulcers and blisters. Skin of left leg-hyperpigmented and xerotic.) Neurological: Normal speech, Normal strength at 5/5 x4 extr, Cranial nerves 3-12 intact - Studies Laboratory Data (last 24 hrs) 08/21/20 12:20: PT 28.3 H, INR 2.44 08/21/20 12:20: WBC 6.70, Hgb 8.4 L, Hct 28.4 L, Plt Count 277 08/21/20 12:20: Sodium 132 L, Potassium 4.9, BUN 65 H, Creatinine 2.59 H, Glucose 116 H, Magnesium 2.2, Total Bilirubin 0.9, AST 36, ALT 72, Alkaline Phosphatase 126 H, Lipase 130 Assessment and Plan - Problems (Diagnosis) (1) Cellulitis of lower extremity Current Visit: Yes Status: Acute (2) Hypotension Current Visit: Yes Status: Acute (3) Sepsis Current Visit: Yes Status: Acute (4) Chronic atrial fibrillation Current Visit: Yes Status: Acute (5) Chronic venous hypertension w/ulcer and inflammation involv right side Current Visit: No Status: Acute (6) Lymphedema Current Visit: No Status: Acute (7) Morbid obesity with BMI of 45.0-49.9, adult Current Visit: No Status: Acute - Plan Patient has low blood pressure could be related to sepsis of from antihypertensives in the context of severe LV dysfunction. Admit patient to the ICU Patient given IV fluid in the ED. Will treat hypertension with vasopressors. Hold antihypertensives-metoprolol, losartan. Hold Lasix, monitor blood pressure and resume Lasix once blood pressure has improved. Aggressive antibiotic therapy with IV cefepime and vancomycin. Keep lower extremities elevated. Patient has been informed this is important. Restrict fluid to 1500 mL per day. Monitor intake and output. Consult general surgery-Dr. Javier. Local wound care. Continue Eliquis for anticoagulation. Will use Cardizem drip for AFib rate control the patient developed rapid AFib with low blood pressure. Plan of care discussed with the patient and she agrees with it. - Advance Directives Does patient have a Living Will: No Does patient have a Durable POA for Healthcare: No
[2020-08-21] MEDS ORDERED: NA CHLORIDE 0.9% 250 ML ONE ×2 (16:28→23:11)
[2020-08-21] MEDS ORDERED: NA CHLORIDE 0.9% 500 ML IV ONE (17:09)
[2020-08-21] MEDS ORDERED: ONDANSETRON 4 MG/2 ML VIAL IV PRN (17:09)
[2020-08-21] MEDS ORDERED: CEFEPIME 1 GM/10 ML SYR IV SCH (17:09)
[2020-08-21] MEDS: CEFEPIME/SWI 1gm 10 ML IV SCH ×2 (17:30→23:09)
[2020-08-21] MEDS ORDERED: CEFEPIME/SWI 1gm 10 ML ONE (19:12)
[2020-08-21] MEDS: ACETAMINOPHEN 500 MG TAB PO PRN (19:13)
[2020-08-21] MEDS ORDERED: ACETAMINOPHEN 500 MG TAB ONE (19:15)
--- NOTE | 2020-08-21 20:58 | P.PN ---
Date of Service: 08/21/20 pt reviewed, issues with ICU bed availability , BP improved to 110s and holding , HR still in 90-100s - will add midodrine to regime -dc ICU bed admit and send to tele bed -can do amiodarone loading for chronic atrial fib
[2020-08-21] MEDS: AMIODARONE HCL 200 MG TAB PO SCH ×2 (21:00→23:05)
[2020-08-21] MEDS: MIDODRINE HCL 5 MG TABLET PO SCH ×2 (21:00→23:04)
[2020-08-21 21:57] VITALS: BMI 50.8
[2020-08-21] MEDS ORDERED: VANCOMYCIN 1 GM/VIAL ONE (23:11)
[2020-08-22] MEDS: MIDODRINE HCL 5 MG TABLET PO SCH ×4 (00:22→21:00)
[2020-08-22] MEDS: AMIODARONE HCL 200 MG TAB PO SCH ×3 (00:24→21:23)
[2020-08-22] MEDS: CEFEPIME/SWI 1gm 10 ML IV SCH ×2 (00:37→01:08)
[2020-08-22] MEDS: ACETAMINOPHEN 500 MG TAB PO PRN ×2 (04:07→09:28)
[2020-08-22 06:03] LABS: Absolute Lymphocytes (CBC) 0.5 K/uL (0.7-4.9); Basophils % 0.5 % (0-1.3); Hematocrit 29.7 % (36.0-45.0); Lymphocytes % 7.6 % (15.3-44.8); MPV 8.3 fL (7.6-11.3); RBC Red Blood Cell Count 4.06 M/uL (3.86-4.86)
[2020-08-22 06:06] LABS: Magnesium 2.1 mg/dL (1.8-2.4); Phosphorus 4.1 mg/dL (2.5-4.9); Potassium 5.5 mmol/L (3.5-5.1)
--- NOTE | 2020-08-22 07:31 | EKG ---
Test Date: 2020-08-21 Test Time: 12:38:01 [facility] Teacher: AVA MEASUREMENT RESULTS: Intervals: Rate: 115 NC: QRSD: 102 QT: 330 QTc: 456 [place]: P: NC: QRS: 47 T: 117 INTERPRETIVE STATEMENTS: Atrial fibrillation with rapid ventricular response with premature ventricular or aberrantly conducted complexes Cannot rule out Anterior infarct, age undetermined Abnormal ECG Compared to ECG 06/25/2020 03:41:51 Myocardial infarct finding now present Sinus tachycardia no longer present Fusion complex(es) no longer present Left bundle-branch block no longer present Electronically Signed On 08-22-20 07:30:12 ACCOUNT EXECUTIVE SALES REPRESENTATIVE by Jimenez Marcus
[2020-08-22 07:59] LABS: Anisocytosis 2+; Blood Morphology Comment NOTED (NOT SEEN); Hypochromasia 1+; Platelet Estimate ADEQ; Polychromasia 1+; White Blood Cell Scan OK (OK)
[2020-08-22 08:00] LABS: Target Cells 1+
[2020-08-22] MEDS: ATORVASTATIN 40 MG TAB PO SCH (09:29)
[2020-08-22] MEDS: FUROSEMIDE 40 MG TABLET PO SCH (09:29)
[2020-08-22] MEDS: CEFEPIME/SWI 2gm 2 GM/20 ML SYR IVP SCH ×2 (09:29→17:00)
[2020-08-22] MEDS: APIXABAN 5 MG TABLET PO SCH (09:30)
[2020-08-22] MEDS: METOPROLOL TAR 25 MG TAB PO SCH ×2 (09:30→21:00)
--- NOTE | 2020-08-22 11:59 | P.PN ---
Subjective Date of Service: 08/22/20 Chief Complaint: Right lower extremity redness and blisters Right lower extremity swelling slightly improved. No change in erythema. Patient's heart rate increased to 120-130 last night and was started on amiodarone. Her metoprolol was held due to hypotension. She was also started on midodrine last night. Her blood pressure this morning has improved. Patient is afebrile. Physical Examination - Vital Signs Temperature: 97.7 F Blood Pressure: 111/71 Pulse: 120 Respirations: 18 Pulse Ox (%): 97 - Physical Exam General: Alert, In no apparent distress, Oriented x3 HEENT: Mucous membr. moist/pink Neck: JVD not distended Respiratory: Clear to auscultation bilaterally, Normal air movement Cardiovascular: Edema (Bilateral lower extremity) Gastrointestinal: Soft and benign, Non-distended Musculoskeletal: Swelling (Bilateral lower extremities, worse on the right) Integumentary: Erythema (Right lower extremity), Other (Multiple shallow ulcers on the reid of right leg, large blister on the lateral aspect of right leg, left leg with dark skin discoloration and xerosis.) Neurological: Normal strength at 5/5 x4 extr, Cranial nerves 3-12 intact - Studies Laboratory Data (last 24 hrs) 08/21/20 12:20: PT 28.3 H, INR 2.44 08/21/20 12:20: WBC 6.70, Hgb 8.4 L, Hct 28.4 L, Plt Count 277 08/21/20 12:20: Sodium 132 L, Potassium 4.9, BUN 65 H, Creatinine 2.59 H, Glucose 116 H, Magnesium 2.2, Total Bilirubin 0.9, AST 36, ALT 72, Alkaline Phosphatase 126 H, Lipase 130 Assessment And Plan - Current Problems (Diagnosis) (1) Cellulitis of lower extremity Current Visit: Yes Status: Acute (2) Hypotension Current Visit: Yes Status: Acute (3) Sepsis Current Visit: Yes Status: Acute (4) Chronic venous hypertension w/ulcer and inflammation involv right side Current Visit: No Status: Acute (5) Lymphedema Current Visit: No Status: Acute (6) Morbid obesity with BMI of 45.0-49.9, adult Current Visit: No Status: Acute (7) Rapid atrial fibrillation Current Visit: Yes Status: Acute - Plan IV fluid discontinued Continue IV cefepime and vancomycin. General surgery-Dr. Javier to see patient. Local wound care. Keep lower extremities elevated. Fluid restriction to 1500 mg a day. Resume oral Lasix. Monitor intake and output Follow cultures. Hold losartan due to hypotension. Continue metoprolol for AFib rate control. Patient reluctant to take amiodarone. Continue Eliquis for anticoagulation. Midodrine p.r.n. for hypotension Hold Lasix, monitor blood pressure and resume Lasix once blood pressure has improved.
[2020-08-23] MEDS: CEFEPIME/SWI 2gm 2 GM/20 ML SYR IVP SCH ×3 (01:12→17:00)
[2020-08-23 06:11] LABS: Absolute Lymphocytes (CBC) 1.3 K/uL (0.7-4.9); Basophils % 1.1 % (0-1.3); Hematocrit 32.1 % (36.0-45.0); Lymphocytes % 14.9 % (15.3-44.8); MPV 8.4 fL (7.6-11.3); RBC Red Blood Cell Count 4.35 M/uL (3.86-4.86)
[2020-08-23 06:29] LABS: Magnesium 2.3 mg/dL (1.8-2.4); Potassium 4.9 mmol/L (3.5-5.1)
[2020-08-23] MEDS ORDERED: VANCOMYCIN 2 GM in NA CHLORIDE 0.9% 500 ML IVPB SCH (08:00)
[2020-08-23] MEDS: MIDODRINE HCL 5 MG TABLET PO SCH ×3 (09:00→21:00)
[2020-08-23] MEDS: FUROSEMIDE 40 MG TABLET PO SCH (09:25)
[2020-08-23] MEDS: ATORVASTATIN 40 MG TAB PO SCH (09:26)
[2020-08-23] MEDS: APIXABAN 5 MG TABLET PO SCH (09:26)
[2020-08-23] MEDS: METOPROLOL TAR 25 MG TAB PO SCH ×2 (09:27→21:02)
[2020-08-23] MEDS: AMIODARONE HCL 200 MG TAB PO SCH (09:30)
--- NOTE | 2020-08-23 11:10 | P.CNS ---
Date of Consult: 08/23/20 Reason for Consult: cellulitis Chief Complaint: Right lower extremity redness and blisters History of Present Illness: Patient is a 55-year-old female with a past medical history chronic systolic heart failure, chronic atrial fibrillation, history of bilateral lower extremity lymphedema and venous stasis dermatitis, presents to [facility] ED due to worsening redness and swelling to the right lower extremity. Infectious disease has been consulted to monitor the patient's antibiotics for a positive UA and bilateral lower extremity cellulitis. Patient currently on cefepime and vancomycin with the UA positive for Citrobacter brakii. Dr. Javier S following the patient for her bilateral lower extremity wounds. Patient has nausea, vomiting, chest pain. She does have some shortness of breath with ambulation. 10 point ROS has been completed with pertinent positives and negatives listed above. Allergies No Known Drug Allergies Allergy (Verified 09/13/15 23:09) Unknown Home Medications: Atorvastatin Calcium 40 mg PO DAILY 10/28/19 Furosemide 40 mg PO DAILY 10/28/19 Losartan Potassium 25 mg PO DAILY 10/28/19 Metoprolol Tartrate 25 mg PO DAILY 10/28/19 Apixaban [Eliquis] 5 mg PO DAILY 06/25/20 - Past Medical/Surgical History Diabetic: No -: HTN -: Hyperlipidemia -: Morbid obesity -: Depression -: Chronic atrial fibrillation -: Asthma -: Chronic systolic heart failure -: CVA -: Chronic anticoagulation. - Family History Mother Medical History: Kidney disease Father Medical History: Hypertension, Liver disease, Kidney disease - Social History Smoking Status: Former smoker Alcohol use: No CD- Drugs: No Caffeine use: Yes Review of Systems 10-point ROS is otherwise unremarkable Physical Examination Temp Pulse Resp BP Pulse Ox 97.8 F 71 18 129/86 95 08/23/20 08:00 08/23/20 09:27 08/23/20 08:00 08/23/20 09:27 08/23/20 08:00 General: Alert, In no apparent distress, Obese HEENT: Atraumatic, Normocephalic Neck: Supple, 2+ carotid pulse no bruit, JVD not distended Respiratory: Diminished Cardiovascular: Regular rate/rhythm, Edema (To bilateral lower extremities) Gastrointestinal: Normal bowel sounds, Soft and benign Musculoskeletal: No clubbing, No erythema, Other (Lymphedema with venous ulcers to bilateral lower extremities) Neurological: Normal speech External genitalia: Deferred Laboratory Last Values WBC 6.70 K/uL (4.3-10.9) 08/21/20 12:20 RBC 3.90 M/uL (3.86-4.86) 08/21/20 12:20 Hgb 8.4 g/dL (12.0-15.0) L 08/21/20 12:20 Hct 28.4 % (36.0-45.0) L 08/21/20 12:20 MCV 72.6 fL (80-100) L 08/21/20 12:20 MCH 21.5 pg (27.0-35.0) L 08/21/20 12:20 MCHC 29.6 g/dL (32.0-36.0) L 08/21/20 12:20 RDW 21.7 % (12.1-15.2) H 08/21/20 12:20 Plt Count 277 K/uL (152-406) 08/21/20 12:20 MPV 8.5 fL (7.6-11.3) 08/21/20 12:20 Neutrophils % 65.4 % (41.7-73.7) 08/21/20 12:20 Lymphocytes % 22.8 % (15.3-44.8) 08/21/20 12:20 Monocytes % 9.1 % (3.3-12.3) 08/21/20 12:20 Eosinophils % 1.5 % (0-4.4) 08/21/20 12:20 Basophils % 1.2 % (0-1.3) 08/21/20 12:20 Absolute Neutrophils 4.4 K/uL (1.8-8.0) 08/21/20 12:20 Segmented Neutrophils 61 % (40-80) 08/21/20 12:20 Absolute Lymphocytes 1.5 K/uL (0.7-4.9) 08/21/20 12:20 Lymphocytes 22 % (15-42) 08/21/20 12:20 Monocytes 13 % (0-10) H 08/21/20 12:20 Absolute Monocytes 0.6 K/uL (0.1-1.3) 08/21/20 12:20 Eosinophils 1 % (0-3) 08/21/20 12:20 Absolute Eosinophils 0.1 K/uL (0-0.5) 08/21/20 12:20 Basophils 2 % (0-1) H 08/21/20 12:20 Absolute Basophils 0.1 K/uL (0-0.5) 08/21/20 12:20 Atypical Lymphocytes 1 % 08/21/20 12:20 Platelet Estimate Adeq 08/21/20 12:20 Polychromasia Slight 08/21/20 12:20 Hypochromasia 1+ 08/21/20 12:20 Anisocytosis 1+ 08/21/20 12:20 Target Cells 1+ 08/21/20 12:20 Morphology Comment Noted (NOT SEEN) 08/21/20 12:20 PT 28.3 SECONDS (9.5-12.5) H 08/21/20 12:20 INR 2.44 08/21/20 12:20 Sodium 132 mmol/L (136-145) L 08/21/20 12:20 Potassium 4.9 mmol/L (3.5-5.1) 08/21/20 12:20 Chloride 99 mmol/L (98-107) 08/21/20 12:20 Carbon Dioxide 24 mmol/L (21-32) 08/21/20 12:20 BUN 65 mg/dL (7-18) H 08/21/20 12:20 Creatinine 2.59 mg/dL (0.55-1.3) H 08/21/20 12:20 Estimated GFR 23 mL/min (=/>90) L 08/21/20 12:20 Glucose 116 mg/dL (74-106) H 08/21/20 12:20 Lactic Acid 1.6 mmol/L (0.4-2.0) 08/21/20 12:20 Calcium 8.7 mg/dL (8.5-10.1) 08/21/20 12:20 Magnesium 2.2 mg/dL (1.8-2.4) 08/21/20 12:20 Total Bilirubin 0.9 mg/dL (0.2-1.0) 08/21/20 12:20 Direct Bilirubin 0.4 mg/dL (0-0.2) H 08/21/20 12:20 AST 36 U/L (15-37) 08/21/20 12:20 ALT 72 U/L (12-78) 08/21/20 12:20 Alkaline Phosphatase 126 U/L (45-117) H 08/21/20 12:20 Rapid Troponin I 0.14 ng/mL (0.0-0.045) H 08/21/20 12:20 NT-Pro-B Natriuret Pep 5049 pg/mL (<125) H 08/21/20 12:20 Serum Total Protein 7.6 g/dL (6.4-8.2) 08/21/20 12:20 Albumin 2.6 g/dL (3.4-5.0) L 08/21/20 12:20 Globulin 5.0 g/dL (2.3-3.5) H 08/21/20 12:20 Albumin/Globulin Ratio 0.5 (1.1-1.8) L 08/21/20 12:20 Lipase 130 U/L (73-393) 08/21/20 12:20 Procalcitonin 0.18 ng/mL (<0.050) H 08/21/20 12:20 TSH 2.490 uIU/mL (0.360-3.740) 08/21/20 12:20 SARS-CoV-2 RNA (RT-PCR) Negative (NEGATIVE) 08/21/20 12:45 ABO/Rh O POSITIVE 08/21/20 13:34 Solid Phase Ab Screen Negative 08/21/20 13:34 Crossmatch See Detail 08/21/20 13:34 Conclusions/Impression: Assessment: -bilateral lower extremity cellulitis with lymphedema and venous ulcers -urinary tract infection -chronic systolic heart failure Plan: -recommend wrapping up in 1 leg at a time to decrease swelling and number for proper wound healing. Patient echocardiogram performed last year showed in left ventricular ejection fraction of 20-25%, and as such should avoid wrapping both legs have 1 time due to possible cardiopulmonary distress. Continue current antibiotics-cefepime and vancomycin-continue for 1 week-the assess PO options. -UA grew Citrobacter Brakii-sensitive to cefepime. -medical management per primary team -continue to monitor CBC and BMP-no leukocytosis at this time -continue to monitor for signs of infection Plan of care discussed with Dr. Brooks, Thank you for consultation
--- NOTE | 2020-08-23 11:19 | CON ---
Date of Consultation: 08/23/2020 Reason For Service: Bilateral lower extremity cellulitis. History Of Present Illness: This is a case of a 55-year-old patient, known by us due to history of l ymphedema, morbid obesity, chronic venous stasis ulcers. The patient was having this problem for sev eral months, eventually came to our clinic and just in a month, we have incredible changes with impro vement, almost no ulcers present, no cellulitis present, but for the last few weeks, we have not been able to get her in our [facility]. She states she has some personal issues and personal p hilda that has not been able to reach our [facility] and despite multiple attempts, we co uld not get her there now. She has come in the ER with what it looked like UTI, even required intens michelle care unit care and also has a bilateral lower extremity with cellulitis. Allergies: NONE. Past Medical History: As above. That include morbid obesity, venous stasis disease, hypertension, d epression. Medications: Reviewed. That include Eliquis. Family History: Noncontributory. Social History: She does not smoke. She does not drink alcohol. Review of Systems: As above and 10 points otherwise unremarkable. Physical Examination: General: The patient is awake, alert. Eyes: Pupils anicteric. Neck: Supple. Chest: Clear. Abdomen: Soft and depressible. Extremities: The patient has lower extremity cellulitis, mainly on the right side with chronic nonhe aling venous stasis ulcers present. They were looking excellent a few weeks ago when she was seen in the [facility], now looked like deteriorating again. She states she has not been able to use the compressions and she has not been able to look or find her primary doctor or come to the [facility]. There is good capillary refill present. Laboratory Data: WBC count of 8.6, hemoglobin of 9.6, sodium is 134. Assessment: This is a 55-year-old patient with morbid obesity, chronic venous stasis disease, chroni c venous statis ulcer. She has not been able to follow up in the Wound [facility]aling Center or in our offi ce for the last several weeks. She claims some personal reasons, but at the [facility] She is going back to where she was before she saw us and we do not want to go there a gain since it was a long-term history of draining ulcers and multiple cellulitis areas. We asked her for her compliance to please when she gets discharged, to follow up in our [facility] al[facility]andro fernando. We were doing excellent progress and we would like to keep her like that. We are going to use Si lvadene in the meantime. That is what worked for her before and the Farhan wrap and then after that, we are going to continue compression dressings when she come back in the [facility]aling [facility]. Right n ow, she has been treated for medical reasons. Continue that. When she gets discharged, please send her to the Wound Healing Center. DOMINICK/BAR Voice ID: [id number] Report ID: [id number]
--- NOTE | 2020-08-23 12:52 | P.PN ---
Subjective Date of Service: 08/23/20 Chief Complaint: Right lower extremity redness and blisters Subjective: No new changes (no significant changes, reports feeling ok. refusing some medications - feels amiodarone is making her feel "funny".) Review of Systems 10-point ROS is otherwise unremarkable Physical Examination - Vital Signs Temperature: 97.8 F Blood Pressure: 129/86 Pulse: 71 Respirations: 18 Pulse Ox (%): 95 - Studies Microbiology Data (last 24 hrs): 08/21/20 13:20 Clean Catch Urine [place] Count - Final BETWEEN 10,000 & 100,000 CFU/ML 08/21/20 13:20 Clean Catch Urine - Final Citrobacter Braakii Assessment & Plan Physician Review Additional Text: Physical Exam General: Alert, In no apparent distress, Oriented x3 HEENT: Mucous membr. moist/pink Respiratory: Clear to auscultation bilaterally, Normal air movement Cardiovascular: irregularly irregulary rhythm, 2+ edema bilaterally to knees Gastrointestinal: Soft and benign, Non-distended Musculoskeletal: edema as noted, worse on R Integumentary: RLE: erythema, improving, multiple shallow ulcerations just above ankle Problem List Cellulitis of right lower extremity Hypotension Sepsis JUDD Chronic venous hypertension w/ulcer and inflammation involving right side chronic Systolic CHF (EF: 30-35%) Lymphedema Morbid obesity with BMI of 45.0-49.9, adult chronic atrial fibrillation, with RVR on daily Eliquis Continue IV cefepime and vancomycin. ID consulted General surgery - Dr. Javier to see patient today. continue local wound care. Keep lower extremities elevated. Fluid restriction to 1500 mg a day. was restarted on home PO lasix, initially held due to hypotension, possible albumin for hypotension renal function improved slightly, still not back to baseline; will consult nephrology Monitor intake and output Follow cultures. Hold losartan due to hypotension. Continue metoprolol for AFib rate control. Patient refusing amiodarone now. Continue Eliquis for anticoagulation. Cardiology consulted. Midodrine p.r.n. for hypotension continue daily Eliquis (home) Dispo: anticipate dc home in 1-2 days Time Spent Managing Pts Care (In Minutes): 35
--- NOTE | 2020-08-23 15:02 | RAD REPORT ---
EXAM DESCRIPTION: US - Renal Ultrasound-Complete - 08/23/2020 2:45 pm CLINICAL HISTORY: JUDD Flank pain COMPARISON: No comparisons FINDINGS: Both kidneys are normal in size, shape and echotexture. The right kidney measures 10.4 x 5.6 x 5.1 cm. No hydronephrosis, focal mass or perinephric fluid. The left kidney measures 11.1 x 6.5 x 5.9 cm. No hydronephrosis, focal mass or perinephric fluid. The urinary bladder is incompletely distended without gross abnormality seen. IMPRESSION: Unremarkable renal sonogram.
[2020-08-23] MEDS ORDERED: FUROSEMIDE 40 MG TABLET PO SCH (17:00)
--- NOTE | 2020-08-23 17:37 | P.CNS ---
Date of Consult: 08/23/20 Reason for Consult: JUDD Chief Complaint: Right lower extremity redness and blisters History of Present Illness: Pt is a 55 y/o female with past medical hx of hypertension. PVD presenting with complaints of leg swelling with ulcers. Pt was diagnosed as having cellulitis and is currently on antibiotics. On admission, pt was noted to have acute kidney injury. Baseline creatinine 0.88 in June 2020. On arrival pt was hypotensive, and placed on midodrine. Currently vital signs are stable. Lab pertinent for creatinine of 2.4 improved to 1.4 to 1.6 at this time. Renal has been consulted for judd on ckd Allergies No Known Drug Allergies Allergy (Verified 09/13/15 23:09) Unknown Home Medications: Atorvastatin Calcium 40 mg PO DAILY 10/28/19 Furosemide 40 mg PO DAILY 10/28/19 Losartan Potassium 25 mg PO DAILY 10/28/19 Metoprolol Tartrate 25 mg PO DAILY 10/28/19 Apixaban [Eliquis] 5 mg PO DAILY 06/25/20 - Past Medical/Surgical History Diabetic: No -: HTN -: Hyperlipidemia -: Morbid obesity -: Depression -: Chronic atrial fibrillation -: Asthma -: Chronic systolic heart failure -: CVA -: Chronic anticoagulation. - Family History Mother Medical History: Kidney disease Father Medical History: Hypertension, Liver disease, Kidney disease - Social History Smoking Status: Former smoker Alcohol use: No CD- Drugs: No Caffeine use: Yes Review of Systems General: Unremarkable Eyes: Unremarkable ENT: Unremarkable Respiratory: Unremarkable Cardiovascular: Edema Gastrointestinal: Unremarkable Genitourinary: Unremarkable Musculoskeletal: Unremarkable Integumentary: Unremarkable Neurological: Unremarkable Physical Examination Temp Pulse Resp BP Pulse Ox 97.8 F 115 H 20 112/79 97 08/23/20 16:00 08/23/20 16:00 08/23/20 16:00 08/23/20 16:00 08/23/20 16:00 General: Alert, In no apparent distress HEENT: Atraumatic, PERRLA, Mucous membr. moist/pink, EOMI, Sclerae nonicteric Neck: Supple, 2+ carotid pulse no bruit, No LAD, Without JVD or thyroid abnormality Respiratory: Clear to auscultation bilaterally, Normal air movement Cardiovascular: Edema Capillary refill: <2 Seconds Gastrointestinal: Normal bowel sounds, No tenderness Musculoskeletal: No tenderness Integumentary: No rashes Neurological: Normal gait, Normal speech, Normal tone, Normal affect Conclusions/Impression: Problems JUDD most likely secondary to ATN and prerenal etiology Hyperkalemia-->improved Hypovolemia Cellulitis Sepsis -->improved Plan No need to start IVF Hold furosemide Encouraged to orally hydrate Continue antibiotics. Continue to monitor vanc trough Avoid nephrotoxins including acei/arbs, nsaids Thank you for this interesting consult.
[2020-08-23 18:26] LABS: Urine Appearance CLEAR; Urine Bilirubin NEGATIVE (NEG); Urine Blood 2+ (NEG); Urine Color YELLOW; Urine Glucose NEGATIVE (NEG); Urine Protein NEGATIVE (NEG); Urine Urobilinogen 0.2 mg/dL (0.2-1.0); Urine pH 5.5 (5.0-7.0)
[2020-08-23 18:30] LABS: Urine Microscopic Reflex ORDER UMIC
[2020-08-23 18:38] LABS: Urine Bacteria <20 /HPF (<20); Urine Mucus 1+ /HPF (NONE SEEN)
[2020-08-24] MEDS: CEFEPIME/SWI 2gm 2 GM/20 ML SYR IVP SCH ×2 (00:39→08:32)
[2020-08-24 05:35] LABS: Absolute Lymphocytes (CBC) 1.4 K/uL (0.7-4.9); Basophils % 0.8 % (0-1.3); Lymphocytes % 16.7 % (15.3-44.8); MPV 8.4 fL (7.6-11.3)
[2020-08-24 05:50] LABS: Magnesium 2.4 mg/dL (1.8-2.4); Potassium 5.4 mmol/L (3.5-5.1)
[2020-08-24] MEDS ORDERED: SOD POLYSTYREN SUL 15 GM/60 ML UCUP PO ONE (07:55)
[2020-08-24] MEDS: APIXABAN 5 MG TABLET PO SCH (08:31)
[2020-08-24] MEDS: ATORVASTATIN 40 MG TAB PO SCH (08:31)
[2020-08-24] MEDS: METOPROLOL TAR 25 MG TAB PO SCH (08:32)
[2020-08-24] MEDS: NA CHLORIDE 0.9% 1,000 ML IV SCH ×2 (08:32→21:20)
[2020-08-24] MEDS: MIDODRINE HCL 5 MG TABLET PO SCH ×2 (08:33→13:05)
[2020-08-24] MEDS ORDERED: FUROSEMIDE 40 MG TABLET PO SCH (09:00)
[2020-08-24] MEDS ORDERED: CEFEPIME 1 GM/10 ML SYR IV SCH (09:30)
[2020-08-24] MEDS ORDERED: VANCOMYCIN 1.25 GM in NA CHLORIDE 0.9% 250 ML IVPB SCH (10:00)
--- NOTE | 2020-08-24 10:04 | CON ---
Date of Consultation: 08/23/2020 Lolis betancourt admitted to Dr. Angelo on 08/21/2020. Reason For Consultation: Atrial fibrillation, congestive heart failure, left lower extremity celluli tis. History Of Present Illness: Ms. Betancourt is known to us from previous hospital admission. I have b melon trying to get her to come to the office for many months because of her cardiac history. Her hist ory is complicated. Her echocardiogram in August of 2019 showed chronic systolic congestive heart william lure with an ejection fraction of %. She has had history of cellulitis, COPD, anxiety, CVA , hypertension, dyslipidemia. Came in with cellulitis, going into rapid ventricular response. By time I saw her, she has already gotten amiodarone 400 mg 1 p.o. b.i.d. and she does not like today admitted. She remains in atrial fibrillation at a rate of 110. She is not complaining of any palpit ation, shortness of breath at rest, but she does have significant dyspnea on exertion with significan t pedal edema. Denied any chest pain. Denied any syncope. Denied any nausea, vomiting, or diaphore sis. Denied any fever or chills. Past Medical History: As stated above. Allergies: NONE. Review of Systems: Negative. Social History: Negative. Family History: Noncontributory. Medications: At home include metoprolol, Eliquis, Lipitor, Lasix, Plavix, losartan, and midodrine. Physical Examination: General: She was in no acute distress. Vital Signs: Showed atrial fibrillation about 110. She was afebrile. HEENT: Negative. Neck: Supple with no bruit, lymphadenopathy, JVD, or thyromegaly. Chest: Revealed rales at both bases. Cardiac: Revealed atrial fibrillation. Abdomen: Obese, but benign. Extremities: Revealed left lower extremity cellulitis and pedal edema 2+. Diagnostic Data: Showed a procalcitonin 0.18. Her creatinine was 2.59 when she got admitted and it went down to 1.78. Her hemoglobin is 9.6. Her troponin is 0.14. Her BNP is 5049. Impression And Plan: 1.Chronic systolic congestive heart failure. The patient needs to be on metoprolol. She needs to b e on Lasix. She needs to be on SUZY inhibitor if . She needs to lose weight. She really s hould be evaluated in detail with the heart catheterization for possible defibrillator and biventricu lar pacemaker. This has been recommended to her many times, but she has not followed up and I sugges bruce that she come to my office for followup and I can certainly help followup which she wi shes. 2.Atrial fibrillation, there is paroxysmal. if she did not tolerate amiodarone, I think we should stop that. 3.Dyslipidemia, on Lipitor. 4.Renal insufficiency. 5.Anemia. 6.Chronic obstructive pulmonary disease. 7.Cellulitis, on antibiotic vancomycin. 8.History of cerebrovascular accident. 9.Hypertension. As stated earlier continue present regimen. Start amiodarone. Continue Eliquis. Needs followup consistently with primary care and myself if she can. She can go home whenever it is okay with Dr. Angelo. LIBBY/BAR Voice ID: [id number] Report ID: [id number]
[2020-08-24] MEDS: SILVER SULFADIAZINE 1% 50 GM TOP SCH ×2 (10:21→20:44)
--- NOTE | 2020-08-24 12:18 | P.PN ---
Subjective Date of Service: 08/24/20 Chief Complaint: Right lower extremity redness and blisters Patient seen examined at bedside and now he complains. She remains afebrile. States she is tolerating the antibiotics well with no nausea, vomiting, diarrhea. Review of Systems 10-point ROS is otherwise unremarkable Physical Examination - Vital Signs Temperature: 97.2 F Blood Pressure: 135/77 Pulse: 114 Respirations: 20 Pulse Ox (%): 100 - Physical Exam Other Physical/Emotional Findings: General: Alert, In no apparent distress, Obese. HEENT: Atraumatic, Normocephalic. Neck: Supple, 2+ carotid pulse no bruit, JVD not distended. Respiratory: Diminished. Cardiovascular: Regular rate/rhythm, Edema (To bilateral lower extremities). Gastrointestinal: Normal bowel sounds, Soft and benign. Musculoskeletal: No clubbing, No erythema, Other (Lymphedema with venous ulcers to bilateral lower extremities). Neurological: Normal speech. External genitalia: Deferred - Studies Laboratory Last Values WBC 6.70 K/uL (4.3-10.9) 08/21/20 12:20 RBC 3.90 M/uL (3.86-4.86) 08/21/20 12:20 Hgb 8.4 g/dL (12.0-15.0) L 08/21/20 12:20 Hct 28.4 % (36.0-45.0) L 08/21/20 12:20 MCV 72.6 fL (80-100) L 08/21/20 12:20 MCH 21.5 pg (27.0-35.0) L 08/21/20 12:20 MCHC 29.6 g/dL (32.0-36.0) L 08/21/20 12:20 RDW 21.7 % (12.1-15.2) H 08/21/20 12:20 Plt Count 277 K/uL (152-406) 08/21/20 12:20 MPV 8.5 fL (7.6-11.3) 08/21/20 12:20 Neutrophils % 65.4 % (41.7-73.7) 08/21/20 12:20 Lymphocytes % 22.8 % (15.3-44.8) 08/21/20 12:20 Monocytes % 9.1 % (3.3-12.3) 08/21/20 12:20 Eosinophils % 1.5 % (0-4.4) 08/21/20 12:20 Basophils % 1.2 % (0-1.3) 08/21/20 12:20 Absolute Neutrophils 4.4 K/uL (1.8-8.0) 08/21/20 12:20 Segmented Neutrophils 61 % (40-80) 08/21/20 12:20 Absolute Lymphocytes 1.5 K/uL (0.7-4.9) 08/21/20 12:20 Lymphocytes 22 % (15-42) 08/21/20 12:20 Monocytes 13 % (0-10) H 08/21/20 12:20 Absolute Monocytes 0.6 K/uL (0.1-1.3) 08/21/20 12:20 Eosinophils 1 % (0-3) 08/21/20 12:20 Absolute Eosinophils 0.1 K/uL (0-0.5) 08/21/20 12:20 Basophils 2 % (0-1) H 08/21/20 12:20 Absolute Basophils 0.1 K/uL (0-0.5) 08/21/20 12:20 Atypical Lymphocytes 1 % 08/21/20 12:20 Platelet Estimate Adeq 08/21/20 12:20 Polychromasia Slight 08/21/20 12:20 Hypochromasia 1+ 08/21/20 12:20 Anisocytosis 1+ 08/21/20 12:20 Target Cells 1+ 08/21/20 12:20 Morphology Comment Noted (NOT SEEN) 08/21/20 12:20 PT 28.3 SECONDS (9.5-12.5) H 08/21/20 12:20 INR 2.44 08/21/20 12:20 Sodium 132 mmol/L (136-145) L 08/21/20 12:20 Potassium 4.9 mmol/L (3.5-5.1) 08/21/20 12:20 Chloride 99 mmol/L (98-107) 08/21/20 12:20 Carbon Dioxide 24 mmol/L (21-32) 08/21/20 12:20 BUN 65 mg/dL (7-18) H 08/21/20 12:20 Creatinine 2.59 mg/dL (0.55-1.3) H 08/21/20 12:20 Estimated GFR 23 mL/min (=/>90) L 08/21/20 12:20 Glucose 116 mg/dL (74-106) H 08/21/20 12:20 Lactic Acid 1.6 mmol/L (0.4-2.0) 08/21/20 12:20 Calcium 8.7 mg/dL (8.5-10.1) 08/21/20 12:20 Magnesium 2.2 mg/dL (1.8-2.4) 08/21/20 12:20 Total Bilirubin 0.9 mg/dL (0.2-1.0) 08/21/20 12:20 Direct Bilirubin 0.4 mg/dL (0-0.2) H 08/21/20 12:20 AST 36 U/L (15-37) 08/21/20 12:20 ALT 72 U/L (12-78) 08/21/20 12:20 Alkaline Phosphatase 126 U/L (45-117) H 08/21/20 12:20 Rapid Troponin I 0.14 ng/mL (0.0-0.045) H 08/21/20 12:20 NT-Pro-B Natriuret Pep 5049 pg/mL (<125) H 08/21/20 12:20 Serum Total Protein 7.6 g/dL (6.4-8.2) 08/21/20 12:20 Albumin 2.6 g/dL (3.4-5.0) L 08/21/20 12:20 Globulin 5.0 g/dL (2.3-3.5) H 08/21/20 12:20 Albumin/Globulin Ratio 0.5 (1.1-1.8) L 08/21/20 12:20 Lipase 130 U/L (73-393) 08/21/20 12:20 Procalcitonin 0.18 ng/mL (<0.050) H 08/21/20 12:20 TSH 2.490 uIU/mL (0.360-3.740) 08/21/20 12:20 SARS-CoV-2 RNA (RT-PCR) Negative (NEGATIVE) 08/21/20 12:45 ABO/Rh O POSITIVE 08/21/20 13:34 Solid Phase Ab Screen Negative 08/21/20 13:34 Crossmatch See Detail 08/21/20 13:34 Microbiology Data (last 24 hrs): 08/21/20 13:20 Clean Catch Urine [place] Count - Final BETWEEN 10,000 & 100,000 CFU/ML 08/21/20 13:20 Clean Catch Urine - Final Citrobacter Braakii Assessment And Plan - Plan Assessment: -bilateral lower extremity cellulitis with lymphedema and venous ulcers -urinary tract infection -chronic systolic heart failure Plan: -recommend wrapping up in 1 leg at a time to decrease swelling and number for proper wound healing. Patient echocardiogram performed last year showed in left ventricular ejection fraction of 20-25%, and as such should avoid wrapping both legs have 1 time due to possible cardiopulmonary distress. Continue current antibiotics-cefepime and vancomycin. Recommend p.o. doxycycline on discharge. Want to avoid renally excreted antibiotics as the patient has an elevated creatinine at 1.7, however it is down trending. -UA grew Citrobacter Brakii-sensitive to cefepime. -medical management per primary team -continue to monitor CBC and BMP-no leukocytosis at this time -continue to monitor for signs of infection Plan of care discussed with Dr. Brooks, Thank you for consultation Physician Review: Patient Assessed, Agree with Above Assessment and Plan
--- NOTE | 2020-08-24 15:49 | P.PN ---
Subjective Date of Service: 08/24/20 Chief Complaint: Right lower extremity redness and blisters Subjective: Improving (Feeling better this morning, breathing well, feels swelling has improved, heart rate remains tachycardic at times, denies chest pain) Review of Systems 10-point ROS is otherwise unremarkable Physical Examination - Vital Signs Temperature: 97.2 F Blood Pressure: 135/77 Pulse: 114 Respirations: 20 Pulse Ox (%): 100 Assessment & Plan Physician Review Additional Text: Physical Exam General: Alert, NAD, AAOx3 HEENT: Mucous membr. moist/pink Respiratory: Clear to auscultation bilaterally, diminished Cardiovascular: irregularly irregulary rhythm, 1-2+ edema bilaterally to knees Gastrointestinal: Soft and benign, Non-distended EXT: b/l lymphedema, +venous ulcers bilaterally. LLE wrapped, RLE: multiple shallow ulceratiosn just above ankle and medial lower thigh Problem List Cellulitis of right lower extremity Hypotension Sepsis JUDD Chronic venous hypertension w/ulcer and inflammation involving right side chronic Systolic CHF (EF: 30-35%) Chronic Lymphedema Morbid obesity with BMI of 45.0-49.9, adult chronic atrial fibrillation, with RVR on daily Eliquis Continue IV cefepime and vancomycin. ID consulted - can switch to PO doxy on discharge General surgery consulted - Dr. Javier recommended continue local wound care. Keep lower extremities elevated. to f/u in office renal function improved slightly, still not back to baseline; nephrology consulted - lasix was held, and to restart fluids today Monitor intake and output Follow cultures. Urine growing citrobacter - sensitivities reviewed Hold losartan due to hypotension. increase metoprolol dose for AFib rate control. still tachy at times. Patient refused amiodarone - didn't like how it made her feel. Cardiology consulted continue daily Eliquis (home dose/regimen) Dispo: anticipate dc home in 24-48hrs - pending renal function improvement and afib control Time Spent Managing Pts Care (In Minutes): 40
[2020-08-24] MEDS: CEFEPIME/SWI 1gm 10 ML IV SCH (16:25)
[2020-08-24] MEDS ORDERED: VANCOMYCIN 2 GM in NA CHLORIDE 0.9% 500 ML IVPB SCH (18:00)
[2020-08-24] MEDS ORDERED: METOPROLOL TAR 25 MG TAB PO SCH (21:00)
[2020-08-24 22:00] VITALS: O2SAT 98
[2020-08-25] MEDS: CEFEPIME/SWI 1gm 10 ML IV SCH (00:07)
--- NOTE | 2020-08-25 01:53 | P.PN ---
Date of Service: 08/25/20 Patient was noted to be refusing oral metoprolol, heart rate noted to be between 120 and 140 atrial fibrillation. I went to discuss discuss with patient, she was upset because she has not been feeling well since he has been in the hospital and she is not getting enough rest. Patient reports that her heart rate gets this way when she does not get enough rest in that she does not ever feel it. Patient described the importance of taking her beta-blockers and their effect on the heart in addition to the risk of prolonged sustained AFib RVR. Patient still refuses metoprolol or any other therapies at this time, patient reports she wants to speak with cardiology and hospitalist physician in the morning and plans on leaving against medical advice. Patient currently alert, oriented x3 states she understands our perspective and appreciates will we are trying to do for her but she knows what's right for her body and does not take any more medications at this time.
[2020-08-25 08:19] VITALS: BP 112/70; TEMP 97.7
--- NOTE | 2020-08-25 13:13 | P.DS ---
Admission Date: 08/21/20 Discharge Date: 08/25/20 Disposition: AMA-LEFT AGAINST MEDICAL ADVIC Discharge Condition: FAIR Reason for Admission: Right lower extremity redness and blisters Consultations: General Surgery: Dr. Javier Nephrology - Dr. Gonzalez Cardiology - Dr. Marcus Infectious Disease - Dr. Brooks Procedures: CXR (08/21): The lungs are grossly clear. Prominent cardiomegaly. No displaced fractures. Renal U/S (08/23): Unremarkable renal sonogram. Problem List Sepsis secondary to Cellulitis of right lower extremity Hypotension JUDD secondary to prerenal, hypovolemia Chronic venous hypertension w/ulcer and inflammation involving right side Chronic Systolic CHF (EF: 30-35%) Chronic Lymphedema Morbid obesity with BMI of 45.0-49.9, adult chronic atrial fibrillation, with RVR on daily Eliquis Brief History of Present Illness: 55-year-old woman with a history of chronic systolic heart failure, chronic atrial fibrillation on Eliquis anticoagulation, history of bilateral lower extremity lymphedema and venous stasis dermatitis who has been following with Dr. Javier as outpatient for wound care presented to the emergency department with a complaint of redness, swelling and blister formation on the right leg. She was hospitalized 3 months ago for similar presentation. Patient signed out against medical advice in order to utilize an another hospital because she was not happy with her care here. Patient noted to have hypotension with systolic blood pressure in the 80s in the ED. Patient is on losartan, metoprolol and Lasix. She has no leukocytosis. Her hemoglobin is down to 8.4 from 10 1 month ago. Patient noted to have erythema and blisters in the right lower extremity. The left lower extremity has black discoloration. Patient given antibiotics, IV fluids for hypotension. She is admitted for further management. Her creatinine was 2.59 Hospital Course: Patient was admitted and treated for cellulitis of lower extremity, Afib w/ RVR, and acute renal failure. Initially patient was compliant, however started to refuse medications and lab draws. This continued and on 08/25, she demanded to for paperwork to leave AMA. She reported decreased sleep / rest. She reported she has been dealing with anxiety over the last year with 2 family member deaths and didn't want to be in the hospital any more. I reiterated that her heart rate is dangerous to continue in the 120-130s, especially with her severe systolic heart failure. Patient stated she understands the concerns, she understands that she has increased risk for blood clots, heart attack, and . She again refused medication. I told her I can speak with nursing staff and have them check on her less often to allow her more rest. Patient still did not want to stay and demanded to be released. Patient signed AMA paperwork. I advised if not feeling well, if HR remains elevated, to see her physician and consider going to the ER. A prescription for Doxycycline was sent to her pharmacy to cover for her cellulitis. She was advised based on her vital signs in the hospital, she would greatly benefit from a higher dose of her metoprolol. She stated she will not change any of her medications, but will at least consider picking up the doxycycline. Blood cultures remained negative, Urine culture grew Citrobacter Braakii. ID was consulted and recommended Doxycycline on discharge. Her renal function improved slightly with gentle IVF hydration. Cardiology recommended patient follow up in the office, would benefit from cardiac catheterization for possible defibrillator and biventricular pacemaker placement. She will need to f/u with Dr. Javier to continue wound care treatment. Vital Signs/Physical Exam: Physical Exam General: Alert, NAD, AAOx3 HEENT: Mucous membr. moist/pink Respiratory: Clear to auscultation bilaterally, diminished Cardiovascular: irregularly irregulary rhythm, 1-2+ edema bilaterally to knees Gastrointestinal: Soft and benign, Non-distended EXT: b/l lymphedema, +venous ulcers bilaterally. LLE wrapped, RLE: multiple shallow ulcerations just above ankle and medial lower thigh Temp Pulse Resp BP Pulse Ox 97.7 F 121 H 18 112/70 97 08/25/20 08:00 08/25/20 08:00 08/25/20 08:00 08/25/20 08:00 08/25/20 08:00 Laboratory Data at Discharge: WBC 8.20 K/uL (4.3-10.9) 08/24/20 05:25 Hgb 9.3 g/dL (12.0-15.0) L 08/24/20 05:25 Hct 32.0 % (36.0-45.0) L 08/24/20 05:25 Plt Count 258 K/uL (152-406) 08/24/20 05:25 PT 28.3 SECONDS (9.5-12.5) H 08/21/20 12:20 INR 2.44 08/21/20 12:20 Sodium 133 mmol/L (136-145) L 08/24/20 05:25 Potassium 5.4 mmol/L (3.5-5.1) H 08/24/20 05:25 BUN 55 mg/dL (7-18) H 08/24/20 05:25 Creatinine 1.51 mg/dL (0.55-1.3) H 08/24/20 17:05 Glucose 96 mg/dL (74-106) 08/24/20 05:25 Phosphorus 4.1 mg/dL (2.5-4.9) 08/22/20 05:27 Magnesium 2.4 mg/dL (1.8-2.4) 08/24/20 05:25 Total Bilirubin 0.9 mg/dL (0.2-1.0) 08/21/20 12:20 AST 36 U/L (15-37) 08/21/20 12:20 ALT 72 U/L (12-78) 08/21/20 12:20 Alkaline Phosphatase 126 U/L (45-117) H 08/21/20 12:20 Lipase 130 U/L (73-393) 08/21/20 12:20 Home Medications: Atorvastatin Calcium 40 mg PO DAILY 10/28/19 Furosemide 40 mg PO DAILY 10/28/19 Losartan Potassium 25 mg PO DAILY 10/28/19 Metoprolol Tartrate 25 mg PO DAILY 10/28/19 Apixaban [Eliquis] 5 mg PO DAILY 06/25/20 Doxycycline Hyclate 100 mg PO BID 10 Days #20 tablet 08/25/20 New Medications: Doxycycline Hyclate 100 mg PO BID 10 Days #20 tablet Diet: AHA Activity: Ad mary jo Followup: Paula Mac NP [Primary Care Provider] - Time spent managing pt's care (in minutes): 40
== END 2020-08-25 09:21 | disposition left against medical advice (07) | DRG 872 ==
LOC: ER 11:29 → ERHOLD 16:08 → 2ND 21:30
PROVIDERS: ADMIT Internal Medicine; ATTEND Hospitalist
PROC: 30233N1 Transfusion of Nonautologous Red Blood Cells into Peripheral Vein, Percutaneous Approach (ICD-10-PCS; principal; 2020-08-21)
DX: A41.9 Sepsis, unspecified organism (principal); L03.115 Cellulitis of right lower limb; I50.22 Chronic systolic (congestive) heart failure; Z68.43 Body mass index [BMI] 50.0-59.9, adult; I87.331 Chronic venous hypertension (idiopathic) with ulcer and inflammation of right lower extremity; N39.0 Urinary tract infection, site not specified; N17.9 Acute kidney failure, unspecified; E66.01 Morbid (severe) obesity due to excess calories; E78.5 Hyperlipidemia, unspecified; E11.51 Type 2 diabetes mellitus with diabetic peripheral angiopathy without gangrene; I89.0 Lymphedema, not elsewhere classified; E87.5 Hyperkalemia; E86.1 Hypovolemia; I48.0 Paroxysmal atrial fibrillation; D64.9 Anemia, unspecified; J44.9 Chronic obstructive pulmonary disease, unspecified; I11.0 Hypertensive heart disease with heart failure; F41.9 Anxiety disorder, unspecified; B96.89 Other specified bacterial agents as the cause of diseases classified elsewhere; Z79.899 Other long term (current) drug therapy; Z86.73 Personal history of transient ischemic attack (TIA), and cerebral infarction without residual deficits; Z79.02 Long term (current) use of antithrombotics/antiplatelets; Z53.29 Procedure and treatment not carried out because of patient's decision for other reasons; Z87.891 Personal history of nicotine dependence; Z79.01 Long term (current) use of anticoagulants; Z20.822 Contact with and (suspected) exposure to COVID-19
CPT/HCPCS: 36415; 71045; 76770; 80048; 80076; 80202; 81003; 81015; 82565; 83605; 83690; 83735; 83880; 84100; 84145; 84443; 84484; 85025; 85610; 86850; 86900; 86901; 87040; 87077; 87086; 87088; 87186; 90471; 90714; 93005; 94760; 99285; J0692; J1160; J1720; J2543; J3370; J7030; J7040; J7050; P9016; U0003

== ENCOUNTER 2020-08-28 17:38 | Emergency (ER) | payer SELFPAY ==
[2020-08-28] MEDS ORDERED: Caclcium Chloride 10% INJ SYR IV ONE (17:39)
[2020-08-28] MEDS ORDERED: EPINEPHrine 1 MG/10 ML SYR IV ONE ×2 (17:39)
[2020-08-28] MEDS ORDERED: AMIODARONE HCL 150 MG/3 ML INJ IV ONE (17:39)
[2020-08-28] MEDS ORDERED: LIDOCAINE 100 MG/5 ML SYRINGE IV ONE (17:39)
--- OUTSIDE RECORDS SUMMARY | 2020-08-28 17:41 | XMS REPORT | Continuity of Care Document ---
:1965 Author Organization [facility] t Address [address] [place] [address] Care Team Providers Name Role Phone Alfredo [...] Department ID 2020-06-28 2020-06-28 Emergency CHAMP Calderon [phone] [id number] 17:40:00 20:09:00 Marquita Higgins [id number] [place] [id number] [place] [id number] [phone] Results This patient has no known results.
[2020-08-28] MEDS ORDERED: NA CHLORIDE 0.9% 2,000 ML ONE (18:07)
[2020-08-28] MEDS ORDERED: EPINEPHrine 1 MG/10 ML SYR ONE (18:33)
[2020-08-28] MEDS ORDERED: D5W 1,000 ML IV ONE ×2 (18:33→19:31)
[2020-08-28] MEDS ORDERED: NOREPINEPHRINE 4mg/D5W 250mL 4 MG/250 ML BAG IV ONE (18:42)
[2020-08-28 19:04] LABS: Arterial Blood Carboxyhemoglob 1.1 % (0-1.5); Blood Gas Oxyhemoglobin 97.4 % (94-97); Blood O2 Saturation 99.5 % (92-98.5)
[2020-08-28] MEDS ORDERED: RSI MEDICATION KIT IV ONE (19:12)
--- NOTE | 2020-08-28 19:13 | ER ---
Nurse's Notes [facility] Name: Lolis Betancourt Age: 55 yrs Sex: Female : 1965 Arrival Date: 08/28/2020 Time: 17:53 Bed 2 Private MD: Diagnosis: Respiratory arrest;Hypotension;Morbid (severe) obesity with alveolar hypoventilation;Cardiac arrhythmia, unspecified;Respiratory failure, unspecified with hypercapnia Presentation: 08/28 17:40 Chief complaint: EMS states: PT RECENTLY STOPPED TAKING PRESCRIBED MEDICATION FOR AFIB. bp PER FAMILY, PT FELL ASLEEP ON THE SOFA AND WAS NON-RESPONSIVE WHEN THEY ATTEMPTED TO AWAKEN HER. CPR INITIATED BY EMS AT 1706. Care prior to arrival: Oral airway placed, BRANDIE TUBE. Compressions began at 17:06. 17:40 Acuity: LYRIC 1 bp 17:40 Method Of Arrival: EMS: [facility] bp 17:40 Coronavirus screen: SEVEN, PT UNRESPONSIVE. Ebola Screen: Unable to complete the Ebola bp screening because:. Initial Sepsis Screen: Does the patient meet any 2 criteria? Systolic BP < 90 mmHg. Altered Mental Status. No. Patient's initial sepsis screen is negative. Does the patient have a suspected source of infection? Yes: Skin breakdown/wound. Risk Assessment: Do you want to hurt yourself or someone else? Unable to obtain. Onset of symptoms was August 28, 2020 at 17:06. Triage Assessment: 17:40 General: Appears obese, Behavior is unresponsive. SEE CPR DOCUMENTATION. bp Historical: - Allergies: 17:40 No Known Allergies; bp - Home Meds: 17:40 atorvastatin 40 mg Oral tab once daily [Active]; clopidogrel 75 mg Oral tab 1 tab once bp daily [Active]; hydroxyzine HCl 25 mg Oral tab 1 tab every 6 hours [Active]; Lasix 40 mg Oral tab 1 tab once daily [Active]; losartan 25 mg Oral tab once daily [Active]; metoprolol tartrate 25 mg Oral tab 1 tab 2 times per day [Active]; - PMHx: 17:40 Anxiety; Cellulitis; CHF; CVA; Hyperlipidemia; Hypertension; bp - Immunization history:: Adult Immunizations unknown. - Social history:: Smoking status: Patient denies any tobacco usage or history of. - Family history:: not pertinent. Screenin:40 Abuse screen: Denies threats or abuse. Denies injuries from another. Nutritional bp screening: No deficits noted. Tuberculosis screening: No symptoms or risk factors identified. 17:40 Fall Risk None identified. bp Assessment: 17:40 CPR assessment: unresponsive, pupils fixed \T\ dilated, no respiratory effort, Ambu bp ventilation, pulses present w/ compressions. Cardiac rhythm is V fib. General: Appears obese, unkempt, Behavior is unresponsive. Neuro: Level of Consciousness is unresponsive. EENT: No deficits noted. Cardiovascular: Rhythm is ventricular fibrillation. Respiratory: Airway via oral airway. GI: No signs and/or symptoms were reported involving the gastrointestinal system. : No signs and/or symptoms were reported regarding the genitourinary system. Derm: No deficits noted. 17:45 General: ROSC. BRANDIE TUBE EXCHANGED FOR ETT 7.5 \T\ 22CM. DURING CODE PT GIVEN 5 EPI, 1 bp AMP CaCl2, 2 AMP BICARB, 300 MG AMIO, LIDO 100 MG, DEFIB \T\ 220 5 TIMES. 17:50 General: VF ON MONITOR, CPR INITIATED. bp 18:15 General: ROSC. MD SPEAKING TO FAMILY. FAMILY CONTINUES TO REQUEST HEROIC INTERVENTION. bp DURING CODE PT GIVEN 3 AMP EPI, 2 AMP BICARB, 1L NS, DEFIB \T\ 220 x4. 18:45 General: VF ON MONITOR. CPR INITIATED. PT MOVED FROM VENT TO AMBU-BAG. bp 19:05 General: ROSC. PT ON LEVOPHED GTT AT 0.075 MCG/KG/MIN AND D5W + BICARB AT 100 ML/HR. ST bp ON MONITOR. PT PUPILS REMAIN FIXED AND DILATED. DURING CODE PT GIVEN 2 AMP EPI, 1 AMP BICARB, DEFIB \T\ 220 x3. 19:29 Reassessment: pt vfib on monitor,cpr performed by bj hernandez. sg 20:07 Reassessment: pt has no palpable central pulses at 2006, CPR initiated, Dr. Srivastava iw speaking with daughter, compressions stopped at 2009, family at bedside. 20:19 Reassessment: pt asystole on monitor, daughter at bedside, Dr. Srivastava at bedside, JESUS iw is 2019. 20:30 Reassessment: E VIOLA \T\ SONS Home, at bedside for patient transport. sg all jewlery remains intact on patient while discharge E from the ER. A cage maker and an inhaler are left at bedside, disposed of properly. A pt belongings bag is left at bedside with undergarments inside, this bag has been thrown away due to being cut to pieces by EMS. Vital Signs: 17:50 BP 152 / 62; Pulse 105; Resp 24; Temp 96.5(R); Pulse Ox 85% ; bp 19:00 BP 93 / 48; Pulse 101; Resp 22; Pulse Ox 97% ; bp 21:44 Weight 129.27 kg; sg ED Course: 17:40 Patient has correct armband on for positive identification. Bed in low position. Call bp light in reach. Side rails up X2. 17:40 Arm band placed on. bp 17:50 Assisted provider with intubation using 7.5 mm ETT via oral route. ET tube secured at bp 24cm at the teeth. Set up intubation tray. Intubated by Alejandro Srivastava MD Placement verified by CO2 detector w/ + color change, auscultating bilateral breath sounds. Assisted provider with central line placement. Set up central line tray. Triple lumen line placed in right femoral. Line placed by Alejandro Srivastava MD Placement verified by CXR, blood return. 17:53 Patient arrived in ED. aa5 18:30 NGT: inserted 16 Fr. to intermittent suction. Returned gastric contents. bp 18:32 Nick Collins, RN is Primary Nurse. bp 18:44 Triage completed. bp 18:46 Alejandro Srivastava MD is Attending Physician. christo 19:01 Don Wheatley DO is Hospitalizing Provider. christo 19:21 RAD In Process Unspecified. EDMS 19:29 Defibrillated with 200 joules. sg 19:31 Defibrillated with 200 joules. sg 19:36 Defibrillated with 200 joules. sg 19:53 Patient has correct armband on for positive identification. Placed in gown. Bed in low bp position. Call light in reach. Side rails up X2. 20:27 Alejandro Srivastava MD is Pronouncing Provider. christo Administered Medications: 19:14 CANCELLED (Duplicate Order): NS 0.9% 1000 ml IV at 125 ml/hr continuous christo 19:35 Drug: EPINEPHrine 0.1mg/mL 1:10,000 1 mg Route: IVP; Site: right femoral; sg 20:34 Not Given (Patient ): Zosyn 3.375 grams IVPB once over 60 mins; (mix in NS 100 iw mL) 20:34 Not Given (Patient ): vancoMYCIN 1 grams IVPB once over 2 hrs iw 20:34 Not Given (Patient ): D5W 1000 ml, Sodium Bicarbonate 150 mEq IV at 100 ml/hr iw continuous 20:34 Not Given (Patient ): NS 0.9% 1000 ml IV at 75 ml/hr continuous iw 20:35 Not Given (Patient ): Pepcid 20 mg IVP once iw 20:35 Not Given (Patient ): NS 0.9% 1000 ml IV at 1 bolus Per protocol; 1000 mL bolus iw Outcome: 19:12 Decision to Hospitalize by Provider. christo 20:36 Patient : Time of 20:19 Pronounced by Alejandro Srivastava MD iw 22:04 Patient left the ED. ea Signatures: Dispatcher [employer] EDMS Andrea Schaefer RN RN sg Anderson, Corey, MD MD cha Williams, Irene RN RN Sherita Mcneil RN RN aa5 Peyton Cortez RN Nick Rodriguez ea RN RN bp Corrections: (The following items were deleted from the chart) 20:00 19:29 Reassessment: pt vfib on monitor,cpr performed by bj hernandez [facility]
--- NOTE | 2020-08-28 19:13 | EDPHYS ---
Physician Documentation [facility] Name: Lolis Betancourt Age: 55 yrs Sex: Female : 1965 Arrival Date: 08/28/2020 Time: 17:53 Bed 2 Private MD: ED Physician Alejandro Srivastava HPI: 08/28 18:53 This 55 yrs old Black Female presents to ER via EMS with complaints of CPR. christo 18:53 Preceding the arrest, the patient collapsed. The arrest occurred at home. Pre-hospital christo course: The arrest was not witnessed by others. Bystanders at the scene did not perform CPR. EMS care prior to arrival: initiation of ACLS, intubation was successfully performed, hillary tube, and left io, infiltrated. oxygen. The patient has not experienced similar symptoms in the past. Historical: - Allergies: 17:40 No Known Allergies; bp - Home Meds: 17:40 atorvastatin 40 mg Oral tab once daily [Active]; clopidogrel 75 mg Oral tab 1 tab once bp daily [Active]; hydroxyzine HCl 25 mg Oral tab 1 tab every 6 hours [Active]; Lasix 40 mg Oral tab 1 tab once daily [Active]; losartan 25 mg Oral tab once daily [Active]; metoprolol tartrate 25 mg Oral tab 1 tab 2 times per day [Active]; - PMHx: 17:40 Anxiety; Cellulitis; CHF; CVA; Hyperlipidemia; Hypertension; bp - Immunization history:: Adult Immunizations unknown. - Social history:: Smoking status: Patient denies any tobacco usage or history of. - Family history:: not pertinent. ROS: 18:54 Unable to obtain ROS due to cpr in progress. christo Exam: 18:54 Eyes: Pupils: are fixed and dilated. christo 18:54 Cardiovascular: Rate: normal, actual rate is 60 bpm, Rhythm: Pulses: not palpable, Heart sounds: none, Edema: 3+ edema to level of left midcalf and right midcalf. 20:01 ECG was reviewed by the Attending Physician. [facility] Vital Signs: 17:50 BP 152 / 62; Pulse 105; Resp 24; Temp 96.5(R); Pulse Ox 85% ; bp 19:00 BP 93 / 48; Pulse 101; Resp 22; Pulse Ox 97% ; bp 21:44 Weight 129.27 kg; sg Procedures: 18:56 Intubation: Ventilated with 100% NRB prior to procedure. O2 saturation prior to [facility] procedure was 90 %. Intubated orally using # 4 Maurice blade with 8.0 mm ETT. was successful on first attempt. Ventilated with Ambu bag. Cricoid pressure applied during procedure. Placement verified by CXR, CO2 detector with (+) color change, auscultating bilateral breath sounds, O2 saturation after procedure was 100 %. Patient tolerated well. Central Line: the site was prepped with Betadine, a triple lumen catheter was inserted, in the right femoral vein, in 2 attempts. placement was verified, by blood return, the site was dressed with using sterile technique. MDM: 18:46 Patient medically screened. [facility] 20:02 Differential diagnosis: arrythmia, cardiac arrest, respiratory arrest, asphyxiation, christo renal failure. Data reviewed: vital signs, nurses notes, EMS record, lab test result(s), EKG, radiologic studies. 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 Test interpretation: by ED physician or midlevel provider: ECG, plain radiologic studies. Counseling: I had a detailed discussion with the patient and/or guardian regarding: the historical points, exam findings, and any diagnostic results supporting the discharge/admit diagnosis, lab results, radiology results, the need for further work-up and treatment in the hospital. 08/28 18:05 Order name: glucometer results - FOR PT WITH NO ID 08/28 19:00 Order name: Basic Metabolic Panel [facility] 08/28 19:00 Order name: CBC with Diff [facility] 08/28 19:00 Order name: LFT's [facility] 08/28 19:00 Order name: Magnesium [facility] 08/28 19:00 Order name: NT PRO-BNP [facility] 08/28 19:00 Order name: PT-INR [facility] 08/28 19:00 Order name: Troponin (emerg Dept Use Only) [facility] 08/28 19:00 Order name: Blood Culture Adult (2) [facility] 08/28 19:00 Order name: Lactate [facility] 08/28 19:00 Order name: ABG [facility] 08/28 19:00 Order name: COVID-19 : Document "Date of Symptom Onset" if Symptomatic. [facility] 08/28 19:02 Order name: Glucose, Ancillary(No Armband); Complete Time: 19:13 EDMS 03 19:05 Order name: ABG Arterial Blood Gas; Complete Time: 19:13 EDMS 08/28 18:48 Order name: Chest Single View XRAY tt3 08/28 19:00 Order name: EKG; Complete Time: 19:01 christo 08/28 19:00 Order name: Cardiac monitoring; Complete Time: 20:35 [facility] 08/28 19:00 Order name: EKG - Nurse/Tech; Complete Time: 20:35 [facility] 08/28 19:00 Order name: IV Saline Lock; Complete Time: 20:35 christo 08/28 19:00 Order name: Labs collected and sent; Complete Time: 20:35 [facility] 08/28 19:00 Order name: O2 Per Protocol; Complete Time: 20:35 [facility] 08/28 19:20 Order name: RAD EDMS 08/28 19:00 Order name: O2 Sat Monitoring; Complete Time: 20:35 [facility] EC:01 Rate is 107 beats/min. Rhythm is irregular. DE interval is normal. QRS interval is christo normal. QT interval is normal. No Q waves. T waves are Normal. No ST changes noted. Clinical impression: Sinus tachycardia. Interpreted by me. Reviewed by me. Administered Medications: 19:14 CANCELLED (Duplicate Order): NS 0.9% 1000 ml IV at 125 ml/hr continuous christo 19:35 Drug: EPINEPHrine 0.1mg/mL 1:10,000 1 mg Route: IVP; Site: right femoral; sg 20:34 Not Given (Patient ): Zosyn 3.375 grams IVPB once over 60 mins; (mix in NS 100 iw mL) 20:34 Not Given (Patient ): vancoMYCIN 1 grams IVPB once over 2 hrs iw 20:34 Not Given (Patient ): D5W 1000 ml, Sodium Bicarbonate 150 mEq IV at 100 ml/hr iw continuous 20:34 Not Given (Patient ): NS 0.9% 1000 ml IV at 75 ml/hr continuous iw 20:35 Not Given (Patient ): Pepcid 20 mg IVP once iw 20:35 Not Given (Patient ): NS 0.9% 1000 ml IV at 1 bolus Per protocol; 1000 mL bolus iw Disposition: 20:04 Critical Care:. christo Disposition: Patient pronounced on 08/28/20 20:19 by Alejandro Srivastava. Impression: Respiratory arrest, Hypotension, Morbid (severe) obesity with alveolar hypoventilation, Cardiac arrhythmia, unspecified, Respiratory failure, unspecified with hypercapnia. - Released to Home. Critical care time excluding procedures: 20:04 Critical care time: Bedside Care: 60 minutes, Consultation: 25 minutes, Family christo Intervention: 20 minutes. Total time: 105 minutes Signatures: Dispatcher [employer] EDAndrea García RN RN sg Anderson, Corey, MD MD cha Antunez, Elena, RN RN ea Peltier, Brian, RN RN bp Williams, Irene RN iw Corrections: (The following items were deleted from the chart) 19:13 19:12 Hospitalization Ordered by Don Wheatley DO for Inpatient Admission. Preliminary christo diagnosis is Respiratory failure, unspecified; Obesity, unspecified; Cardiac arrest - Post-Resusciation. Bed requested for Telemetry/MedSurg (Inpatient). Status is Inpatient Admission. Condition is Critical. Problem is new. Symptoms have worsened. christo 19:14 19:00 NS 0.9% 1000 ml IV at 125 ml/hr continuous ordered. christo christo 20:27 19:13 08/28/2020 19:12 Hospitalization Ordered by Don Wheatley DO for Inpatient christo Admission. Preliminary diagnosis is Respiratory failure, unspecified; Obesity, unspecified; Cardiac arrest - Post-Resusciation; Acidosis. Bed requested for Telemetry/MedSurg (Inpatient). Status is Inpatient Admission. Condition is Critical. Problem is new. Symptoms have worsened. christo 20:31 20:30 08/28/2020 20:30 Patient pronounced on 08/28/2020 at 20:19 by Alejandro Srivastava. christo Impression: Respiratory arrest; Hypotension; Morbid (severe) obesity with alveolar hypoventilation. Released to Home. christo 20:51 20:31 08/28/2020 20:30 Patient pronounced on 08/28/2020 at 20:19 by Alejandro Srivastava. christo Impression: Respiratory arrest; Hypotension; Morbid (severe) obesity with alveolar hypoventilation; Cardiac arrhythmia, unspecified. Released to Home. christo 22:04 20:51 08/28/2020 20:30 Patient pronounced on 08/28/2020 at 20:19 by Alejandro Srivastava. ea Impression: Respiratory arrest; Hypotension; Morbid (severe) obesity with alveolar hypoventilation; Cardiac arrhythmia, unspecified; Respiratory failure, unspecified with hypercapnia. Released to Home. christo
--- NOTE | 2020-08-28 19:20 | RAD REPORT ---
EXAM DESCRIPTION: RAD - Chest Single View - 08/28/2020 6:55 pm CLINICAL HISTORY: TRAUMA, intubation COMPARISON: August 21 TECHNIQUE: AP portable chest image was obtained 08/28/2020 6:55 pm . FINDINGS: Lung volumes are low. Respiratory motion degradation is present. Resuscitation paddle over lies the chest. Pronounced cardiomegaly is present similar to comparison. Interstitial opacification is not substanti ally different when adjusting for the low lung volumes. Tip of the ET tube is T3 level which is top of the aortic arch. NG/OG tube extends below the diaphra gm, off the field of view. No measurable pleural effusion and no pneumothorax. No acute bony abnormality seen. No acute aortic findings suspected. IMPRESSION: Endotracheal tube tip is top of the aortic arch. NG/ OG tube extends below the diaphragm, off the field of view. Prominent cardiomegaly similar to comparison. Interstitial pattern not clearly different from compari son.
[2020-08-28] MEDS ORDERED: DOPAMINE/D5W 0 MG/0 ML BAG IV ONE (20:22)
[2020-08-28 20:31] LABS: Absolute Lymphocytes (CBC) 2.6 K/uL (0.7-4.9); Basophils % 0.4 % (0-1.3); Lymphocytes % 23.8 % (15.3-44.8); MPV 8.8 fL (7.6-11.3); RBC Red Blood Cell Count 3.51 M/uL (3.86-4.86)
[2020-08-28 20:38] LABS: Protime INR 1.98
[2020-08-28 20:51] LABS: Albumin 1.7 g/dL (3.4-5.0); Bilirubin Direct 0.3 mg/dL (0-0.2); Bilirubin Total 0.6 mg/dL (0.2-1.0); Potassium 4.1 mmol/L (3.5-5.1); Troponin (Emerg Dept Use Only) 0.42 ng/mL (0.0-0.045)
[2020-08-28 22:09] VITALS: TEMP 96.5
[2020-08-28 22:10] VITALS: BP 93/48; O2SAT 97
== END 2020-08-28 22:04 | disposition expired ==
LOC: ER 17:38
PROC: 0BH17EZ Insertion of Endotracheal Airway into Trachea, Via Natural or Artificial Opening (ICD-10-PCS; principal; 2020-08-28)
PROC: 5A1935Z Respiratory Ventilation, Less than 24 Consecutive Hours (ICD-10-PCS; 2020-08-28)
PROC: 06HM33Z Insertion of Infusion Device into Right Femoral Vein, Percutaneous Approach (ICD-10-PCS; 2020-08-28)
DX: J96.92 Respiratory failure, unspecified with hypercapnia (principal); I95.9 Hypotension, unspecified; E66.2 Morbid (severe) obesity with alveolar hypoventilation; I49.9 Cardiac arrhythmia, unspecified
CPT/HCPCS: 31500; 36415; 71045; 80048; 80076; 82805; 82947; 83605; 83735; 83880; 84484; 85025; 85610; 87040; 92950; 92960; 93005; 96374; 99291; 99292; J0171; J0282; J1265; J7030